=== PATIENT | female | born 1995 | race Caucasian/White ===

== ENCOUNTER → 2019-07-31 16:47 | Outpatient (CLI) | payer OTHER, SELFPAY ==
[2019-08-05 20:07] LABS: Age Gdln ACOG Testing 21-29 (.)
[2019-08-05 20:35] LABS: HPV APTIMA, High Risk Negative (Negative)
[2019-08-05 21:04] LABS: HPV Reflexed? YES, CHARGE PATIENT
== END ==
PROVIDERS: Referring Provider Obstetrics & Gynecology; Visit Provider Obstetrics & Gynecology
DX: Z12.4 Encounter for screening for malignant neoplasm of cervix (principal)
CPT/HCPCS: 87624; 88175; G0145

== ENCOUNTER → 2020-11-09 17:06 | Outpatient (CLI) | payer OTHER, SELFPAY | PROVIDERS: Visit Provider Obstetrics & Gynecology | DX: N39.0 Urinary tract infection, site not specified (principal) | CPT/HCPCS: 87086; 87088 ==

== ENCOUNTER → 2020-12-07 16:22 | Outpatient (CLI) | payer OTHER, SELFPAY | PROVIDERS: Visit Provider Obstetrics & Gynecology | DX: Z11.3 Encounter for screening for infections with a predominantly sexual mode of transmission (principal) ==

== ENCOUNTER 2020-12-13 09:19 | Emergency (ER) | payer OTHER, SELFPAY ==
[2020-12-13 09:20] VITALS: BP 113/72; PULSE 108; RESP 6; TEMP 36.5; O2SAT 99; BMI 23.0
[2020-12-13] MEDS: DiphenhydrAMINE 50 MG/ML Syringe IV (10:01)
[2020-12-13] MEDS: MethylPREDNISolone 125 MG/2 ML Vial IV (10:01)
[2020-12-13] MEDS: Famotidine 200 MG/20 ML MDV 40 MG in 0.9% Normal Saline (Pres. free 6 ML 300 MG IV (10:16)
--- NOTE | 2020-12-13 11:17 | EX.ED.DYSGE1 ---
HPI History of Present Illness Chief Complaint: Allergic Reaction Narrative Narrative: Patient is a 25-year-old female who states she was placed on Bactrim by her family doctor secondary to UTI. She states she took this for about 4 days and then noticed she was getting a little bit of redness/rash. She states that she contact the doctor but they state that it was just mild irritation. Patient states that however in the next 24 hours she developed a diffuse pruritic rash from her face all the way down to her feet and therefore comes in for evaluation. She denies any trouble breathing or swallowing and she denies any new exposures other than the Bactrim [facility] Medical History no medical history Home Medications PNV comb no.58-iron bisgly-FA [] 1 cap PO DAILY 12/13/20 [History Last Taken Unknown] nitrofurantoin monohyd/m-cryst [Macrobid] 100 mg PO BID 12/13/20 [History Last Taken 12/13/20] prednisone 40 mg PO DAILY #10 tab 12/13/20 [Rx Last Taken Unknown] Allergy/AdvReac Type Severity Reaction Status Date / Time No Known Allergies Allergy Verified 12/13/20 09:24 Surgical History no surgical history Social History Smoking Status: Never smoker ROS ROS ED Constitutional Constitutional ED: Denies chills or fever(s) ENT ENT ED: Denies sore throat Cardiovascular Cardiovascular: Denies chest pain Respiratory/Chest Respiratory/Chest: Denies cough or dyspnea Gastrointestinal Gastrointestinal: Denies abdominal pain, diarrhea, nausea or vomiting Genitourinary Genitourinary ED: Denies dysuria Musculoskeletal Musculoskeletal: Denies myalgias Integumentary Reports rash Neurologic Neurologic: Denies headache(s) Hematologic/Lymphatic Hematologic/Lymphatic: Denies easy bleeding or easy bruising EXAM Physical Exam Const Vital Signs: 12/13/20 09:20 Temperature 97.7 F L Temperature Source Temporal Pulse Rate 108 H Respiratory Rate 6 L Blood Pressure 113/72 Blood Pressure Mean 85 Pulse Ox 99 Oxygen Delivery Method Room Air Positive well nourished and well developed General Appearance ED: well developed HEENT Reports moist mucous membranes HEENT Narrative: No tongue or lip swelling no oral lesions no airway edema or compromise Eyes PERRL and EOMs intact bilaterally Neck supple Resp normal respiratory effort and clear to auscultation bilaterally Cardio regular rate and regular rhythm GI normal to inspection, nondistended, normoactive bowel sounds, non-tender and non-distended Auscultation: normoactive bowel sounds Palpation: soft Extremity normal to inspection Neuro oriented x3 and CN's II-XII intact bilaterally Sensorium / Orientation: alert Psych mental status grossly normal Skin Skin Narrative: Patient has urticarial lesions extending from the dorsal aspect of her feet all the way up through her face with no involvement of the palms and soles. The lesions are blanchable in nature without secondary changes to suggest infection. No coalescing lesions or sloughing of tissue to suggest even Jordan syndrome MDM MDM MDM Narrative Medical decision making narrative: Patient presented to the ER and in no acute distress with normal temperature. As she did not have tongue or lip swelling I did not feel there was a need for epinephrine. She was given IV Solu-Medrol Benadryl and Pepcid secondary to the acute allergic reaction. She was watched in the ER for approximately 2 hours and had no rebound of symptoms. At this time I feel her symptoms are most consistent with acute drug reaction mainly the Bactrim. She was advised to list sulfa as an allergy from now on and be placed on 5 more days of steroids to keep the inflammation under control Discharge Plan Triage Chief Complaint: Allergic Reaction ED Provider: Carmelo South Dx/Rx/DC Orders Clinical Impression: Allergic reaction caused by a drug Instructions: ED ADVERSE DRUG REACTION Allergic Prescriptions: New prednisone 20 mg tablet 40 mg PO DAILY Qty: 10 RF: 0 No Action nitrofurantoin monohyd/m-cryst [Macrobid] 100 mg Capsule 100 mg PO BID RF: 0 10-400 mg-mcg Capsule 1 cap PO DAILY RF: 0 Primary Care Provider: Paris Lee Referrals: Paris Lee MD [Primary Care Provider] - Disposition Disposition: Home, Self Care
[2020-12-13 11:39] VITALS: PULSE 99; RESP 16; O2SAT 100
== END 2020-12-13 11:40 | disposition home or self-care (01) ==
PROVIDERS: Emergency Provider Emergency Medicine; PCP Family Medicine
DX: T50.905A Adverse effect of unspecified drugs, medicaments and biological substances, initial encounter (principal); N39.0 Urinary tract infection, site not specified; Z79.52 Long term (current) use of systemic steroids
CPT/HCPCS: 96374; 96375; 99283; A4216; J3490

== ENCOUNTER 2021-04-05 14:34 | Outpatient (CLI) | payer OTHER, SELFPAY ==
[2021-04-05 16:14] LABS: Absolute Lymphocyte Count 1.51 X10^3/uL (0.83-4.51); Absolute Neutrophil Count 6.3 X10^3/uL (2.0-7.7); Basophil# 0.07 X10^3/uL; Basophil% 0.8 % (0-1); Eosinophil# 0.14 X10^3/uL; Eosinophils% 1.6 % (0-5); Hematocrit 41.2 % (37-47); Hemoglobin 14.1 g/dL (12.0-15.0); Lymphocyte # 1.51 X10^3/ul (0.83-4.51); Lymphocyte % 17.5 % (19-41); Mean Corp Hgb Conc 34.2 g/dL (32-36); Mean Corpuscular Volume 84.6 fL (81-99); Mean Platelet Vol. 10.2 fl (6.2-12.0); Monocyte# 0.55 X10^3/uL; Monocyte% 6.4 % (0-10); NRBC Flagged by Analyzer 0 % (0-5); Neutrophil # 6.31 X10^3/uL (2.7-7.7); Neutrophil % 73.4 % (47-70); Platelet Count 245 K/mm3 (150-450); RBC Distribution Width CV 13.1 % (11.6-14.6); RBC Distribution Width SD 39.8 fl (35.1-43.9); Red Blood Count 4.87 M/mm3 (4.2-5.4); White Blood Count 8.6 K/mm3 (4.4-11.0)
[2021-04-06 15:43] LABS: HIV - WCH Non-Reactive (Nonreactive); Hepatitis B Surface Antigen Non-Reactive (Nonreactive); Hepatitis C Antibody Non-Reactive (Nonreactive); Rubella IgG Reactive (Nonreactive); Syphilis Antibodies Non-reactive
[2021-04-08 00:07] LABS: Chlamydia By Nucleic Acid AMP Negative (Negative)
[2021-04-08 08:37] LABS: Gonococcus By Nucleic Acid AMP Negative (Negative)
== END 2021-04-05 23:59 | disposition short-term general hospital (02) ==
LOC: WOBLAB 14:35
PROVIDERS: PCP Family Medicine; Visit Provider Student in an Organized Health Care Education/Training Program
DX: Z34.81 Encounter for supervision of other normal pregnancy, first trimester (principal); Z11.3 Encounter for screening for infections with a predominantly sexual mode of transmission
CPT/HCPCS: 36415; 85025; 86703; 86762; 86780; 86803; 87086; 87340; 87491; 87591

== ENCOUNTER 2021-06-07 16:21 | Outpatient (CLI) | payer OTHER, SELFPAY ==
[2021-06-07 17:23] LABS: Thyroid Stim Hormone (TSH) 2.65 uIU/mL (0.358-3.74)
== END 2021-06-07 23:59 | disposition home or self-care (01) ==
LOC: WOBLAB 16:21
PROVIDERS: PCP Family Medicine; Visit Provider Student in an Organized Health Care Education/Training Program
DX: Z13.29 Encounter for screening for other suspected endocrine disorder (principal)
CPT/HCPCS: 36415; 84443

== ENCOUNTER → 2021-07-15 | Outpatient (CLI) | payer OTHER, SELFPAY | END | disposition home or self-care (01) | LOC: LABSPEC 16:13 | PROVIDERS: PCP Family Medicine; Visit Provider Student in an Organized Health Care Education/Training Program | DX: O23.42 Unspecified infection of urinary tract in pregnancy, second trimester (principal) | CPT/HCPCS: 87086; 87088 ==

== ENCOUNTER → 2021-08-09 | Outpatient (CLI) | payer OTHER, SELFPAY ==
[2021-08-09 17:10] LABS: Hematocrit 35.7 % (37-47); Mean Corp Hgb Conc 33.6 g/dL (32-36); Mean Corpuscular Hgb 29.5 pg (27.0-32.0); Mean Corpuscular Volume 87.7 fL (81-99); Mean Platelet Vol. 10.6 fl (6.2-12.0); Platelet Count 264 K/mm3 (150-450); RBC Distribution Width CV 12.9 % (11.6-14.6); RBC Distribution Width SD 41.8 fl (35.1-43.9); Red Blood Count 4.07 M/mm3 (4.2-5.4); White Blood Count 7.9 K/mm3 (4.4-11.0)
[2021-08-09 17:34] LABS: Glucose Challenge Gest 1H 50g 99 mg/dL (70-140)
== END | disposition home or self-care (01) ==
LOC: WOBLAB 15:57
PROVIDERS: PCP Family Medicine; Visit Provider Student in an Organized Health Care Education/Training Program
DX: Z34.83 Encounter for supervision of other normal pregnancy, third trimester (principal)
CPT/HCPCS: 36415; 82950; 85027

== ENCOUNTER → 2021-11-02 | Outpatient (CLI) | payer OTHER, SELFPAY | END | disposition home or self-care (01) | LOC: LABSPEC 15:53 | PROVIDERS: PCP Family Medicine; Visit Provider Student in an Organized Health Care Education/Training Program | DX: Z36.85 Encounter for antenatal screening for Streptococcus B (principal) | CPT/HCPCS: 87081 ==

== ENCOUNTER 2021-11-30 06:42 | Inpatient (IN) | payer OTHER, SELFPAY ==
[2021-11-30] VITALS (42 sets, daily range): BP systolic 99–132; BP diastolic 56–86; PULSE 73–108; TEMP 36.1–36.8; O2SAT 80–100; BMI 28.9
--- NOTE | 2021-11-30 08:06 | PCM.HP.BLA ---
History and Physical Date of Admission: 11/30/21 HPI: 26-year-old at 40/3 weeks, ROLAND 11/27/2021 by LMP, admitted for induction of labor at term. Denies leaking of fluid, vaginal bleeding, regular contractions. Reports movement. Denies headache, vision changes, chest pain or shortness of breath, nausea or vomiting, diarrhea or constipation, fevers or chills. 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 Medical history: Denies Surgical history: Yet tonsillectomy Medications: vitamin Allergies: Bactrim causes rash Family history: Noncontributory Social history: Denies tobacco, alcohol, drug use Review of system: Negative otherwise stated as above Physical exam: Vital signs:Blood pressure 117/71, pulse 95, pulse ox 97% on room air General: No acute distress, comfortable in bed HEENT: Normocephalic/atraumatic, PERRLA Cardiorespiratory: No increased effort Abdomen: Soft, nontender, nondistended, gravid Extremities: No edema Musculoskeletal: Strength 5/5 throughout extremities Neurologic: Cranial nerves II through XII grossly intact, no focal deficits Cervical exam pending, with 3 cm in office yesterday FHR: `135/mod jake/+accel/no decel [place]: irregular panel Gonorrhea/chlamydia negative Hepatitis B/hepatitis C negative HIV negative Syphilis negative Rubella immune A positive GBS neg 11/02 Assessment/plan: 26-year-old G1, P0 at 40/3 weeks admitted for induction of labor at term. ? Induction of labor with Pitocin ? GBS negative ? Routine orders ? Okay for epidural if desires at any time
[2021-11-30] MEDS: Lactated Ringers 1,000 ML 50 ML IV (08:18)
[2021-11-30] MEDS: Oxytocin 30 units/NS 500 ml 30 UNITS/500 ML IV.SOLN IV (08:19)
[2021-11-30 08:23] LABS: Absolute Lymphocyte Count 1.56 X10^3/uL (0.83-4.51); Basophil# 0.05 X10^3/uL; Basophil% 0.5 % (0-1); Eosinophil# 0.13 X10^3/uL; Eosinophils% 1.2 % (0-5); Hematocrit 39.5 % (37-47); Lymphocyte # 1.56 X10^3/ul (0.83-4.51); Lymphocyte % 14.8 % (19-41); Mean Corp Hgb Conc 32.9 g/dL (32-36); Mean Corpuscular Hgb 28.3 pg (27.0-32.0); Mean Corpuscular Volume 85.9 fL (81-99); Monocyte% 6.6 % (0-10); NRBC Flagged by Analyzer 0 % (0-5); Neutrophil # 8.03 X10^3/uL (2.7-7.7); Platelet Count 246 K/mm3 (150-450); RBC Distribution Width SD 43.6 fl (35.1-43.9); White Blood Count 10.6 K/mm3 (4.4-11.0)
--- NOTE | 2021-11-30 17:01 | PN.OBGYN_ITS ---
Subjective Subjective Getting more uncomfortable with contractions. Objective Data Objective Data Vital Signs: Vital Signs Temp Pulse BP Pulse Ox 97.6 F L 77 120/86 H 98 11/30/21 16:20 11/30/21 16:27 11/30/21 16:21 11/30/21 16:27 Weight: 74 kg Body Mass Index (BMI) 28.9 Intake & Output: Intake and Output for Last 24 Hours 11/28/21 11/29/21 11/30/21 23:59 23:59 23:59 Intake Total 1525.13 / 1525.13 Output Total 2925 / 2925 Balance -1399.87 / -1399.87 Lab / Micro Data Result Diagrams: 11/30/21 07:55 Labs: Laboratory Results - last 24 hr 11/30/21 07:55: WBC 10.6, RBC 4.60, Hgb 13.0, Hct 39.5, MCV 85.9, MCH 28.3, MCHC 32.9, RDW Std Deviation 43.6, RDW Coeff of Lizet 14.0, Plt Count 246, MPV 11.0, Immature Gran % (Auto) 0.900, Neut % (Auto) 76.0 H, Lymph % (Auto) 14.8 L, [place] % (Auto) 6.6, Eos % (Auto) 1.2, Baso % (Auto) 0.5, Absolute Neuts (auto) 8.0 H, Absolute Lymphs (auto) 1.56, Nucleated RBC % 0 11/30/21 07:55: Blood Type A POSITIVE, Antibody Screen NEGATIVE Physical Exam Const alert, oriented x3 and no apparent distress Resp normal respiratory effort Narrative: 3/80/0, AROM clear fluid Extremity no pedal edema Neuro moves all extremities and no focal motor deficits NST FHR Rate Baby A Baseline: 125/mod lizet/+accel/no decel Variability:: Moderate Accelerations:: 15 x 15 Decelerations:: None FHR Category:: Category I Assessment & Plan (1) : PLAN: AROM clear fluid. Continue titrating Pitocin as tolerated.
[2021-11-30] MEDS: LACTATED RINGERS 500 ML 999 ML IV ×2 (17:06→18:58)
[2021-11-30] MEDS: fentaNYL-bupivacaine (epidural) 100 ML BAG EPIDURAL ×2 (18:09→22:18)
[2021-11-30] MEDS: Ondansetron 4 MG/2 ML Vial IV (20:11)
[2021-11-30] MEDS: Lactated Ringers 1,000 ML 200 ML IV (20:11)
[2021-11-30] MEDS: 0.9% Saline Lock 10 ML Syringe IV (20:11)
[2021-12-01] VITALS (37 sets, daily range): BP systolic 100–204; BP diastolic 56–105; PULSE 68–164; RESP 16–18; TEMP 31.8–37.2; O2SAT 94–99
[2021-12-01] MEDS: Lactated Ringers 1,000 ML 200 ML IV (01:14)
[2021-12-01] MEDS: Ondansetron 4 MG/2 ML Vial IV (01:38)
[2021-12-01] MEDS: fentaNYL-bupivacaine (epidural) 100 ML BAG EPIDURAL (03:27)
[2021-12-01] MEDS: Oxytocin 30 units/NS 500 ml 30 UNITS/500 ML IV.SOLN 334 UNITS IV (04:49)
[2021-12-01] MEDS: Methylergonovine 0.2 MG/ML Ampul IM (04:53)
[2021-12-01] MEDS: miSOPROStol 200 MCG Tablet 1000 MCG RC (04:56)
--- NOTE | 2021-12-01 05:06 | EX.PCM.OBRPT ---
Vaginal Delivery Operative Information Date of Procedure: 12/01/21 Pre-Operative Diagnosis: Sanchez intrauterine Post-Operative Diagnosis: Sanchez intrauterine Surgery / Procedure Performed: Spontaneous Vaginal Delivery Type of Anesthesia: Epidural Estimated Blood Loss: 600 cc Findings Description of Procedure: Spontaneous vaginal delivery viable infant female. No nuchal cord. Baby to mom. Cord clamped and cut. Spontaneous delivery of placenta. First-degree laceration repaired with interrupted stitch. Right labial laceration repaired with 1 [id number]. Hemostatic. bleeding decreased to minimal with bimanual massage, Methergine 0.2 mg x 1, Cytotec 1000 mcg x 1 rectally. A Gender: Female (1 minute): 9 (5 minute): 9
[2021-12-01] MEDS: Benzocaine/Lanolin/Aloe Vera 1 SPRAY EACH TOPICAL (06:07)
[2021-12-01] MEDS: Ibuprofen 600 MG Tablet PO ×2 (06:07→19:51)
[2021-12-01] MEDS: 0.9% Saline Lock 10 ML Syringe IV (07:09)
[2021-12-01] MEDS: Senna/Docusate Sodium 1 Tablet PO (16:02)
[2021-12-02] MEDS: Ibuprofen 600 MG Tablet PO ×2 (03:35→09:46)
[2021-12-02 04:37] VITALS: BP 98/61; PULSE 79; RESP 16; TEMP 36.8
--- NOTE | 2021-12-02 06:23 | DS.PCM_ITS ---
Discharge Summary Date of Admission: 11/30/21 Date of Discharge: 12/02/21 Summary: Patient arrived on 11/30/2021 for induction of labor at term. Subsequently delivered vaginally on 12/01/2021. EBL 600 cc given Methergine and Cytotec. Subsequently discharged home on 12/02/2021 Meaningful Use Info Meaningful Use Diagnoses (Choose all that apply): None applicable Discharge Plan Admission Admit Date/Time: 11/30/21 06:42 Primary Reason for Your Visit: Induction of labor Attending Provider: Judith Barrientos Primary Care Provider: Paris Lee Instructions Additional Instructions / Restrictions: Regular diet. Weightbearing as tolerated. Okay to shower. No intercourse for 4 to 6 weeks. Call if fevers, chills, chest pain, shortness of breath. Follow- up 4 to 6 weeks Discharge Orders/Prescriptions Prescriptions: No Action 10-400 mg-mcg Capsule 1 cap PO DAILY cetirizine [Zyrtec] 10 mg Tablet 10 mg PO DAILY Referrals / Follow Up: Paris Lee MD [Primary Care Provider] - Disposition Disposition (needs filled in before D/C Order can be placed): Home, Self Care
--- NOTE | 2021-12-02 06:25 | PCM.PN.OB ---
Subjective Subjective No overnight complaints. Denies dizziness, chest pain, shortness of breath, weakness Objective Data Objective Data Vital Signs: Vital Signs Temp Pulse Resp BP Pulse Ox O2 Del Method 98.2 F 79 16 98/61 97 Room Air 12/02/21 04:37 12/02/21 04:37 12/02/21 04:37 12/02/21 04:37 12/01/21 12:23 12/02/21 04:37 Oxygen Delivery Method Room Air Weight: 163 lb 2.273 oz Body Mass Index (BMI) 28.9 Intake & Output: Intake and Output for Last 24 Hours 11/30/21 12/01/21 12/02/21 23:59 23:59 23:59 Intake Total 3861.83 / 3861.83 2204.51 / 2204.51 Output Total 3175 / 3175 4700 / 4700 Balance 686.83 / 686.83 -2495.49 / -2495.49 Lab / Micro Data Result Diagrams: 11/30/21 07:55 Physical Exam Const alert, oriented x3, no apparent distress, average body habitus, healthy appearing and well nourished HEENT normocephalic and moist oral mucous membranes Eyes PERRL Neck full ROM Resp normal respiratory effort, no retractions and no use of accessory muscles GI GI Narrative: Soft, nontender, uterus firm and below umbilicus Extremity normal to inspection, full ROM and no clubbing, cyanosis or edema Skin no rashes or lesions noted Neuro moves all extremities, no focal motor deficits and no sensory deficits noted Psych mental status grossly normal, affect normal, speech normal and activity/motor behavior normal Assessment & Plan (1) Vaginal delivery: PLAN: day 1. Breast-feeding. Pain well controlled. Okay to discharge home today
[2021-12-02 07:37] LABS: Hematocrit 38.8 % (37-47); Hemoglobin 12.6 g/dL (12.0-15.0); Mean Corp Hgb Conc 32.5 g/dL (32-36); Mean Corpuscular Hgb 28.4 pg (27.0-32.0); Mean Corpuscular Volume 87.4 fL (81-99); Mean Platelet Vol. 10.5 fl (6.2-12.0); Platelet Count 258 K/mm3 (150-450); RBC Distribution Width CV 14.4 % (11.6-14.6); RBC Distribution Width SD 45.5 fl (35.1-43.9); Red Blood Count 4.44 M/mm3 (4.2-5.4); White Blood Count 12.8 K/mm3 (4.4-11.0)
[2021-12-02 09:21] VITALS: BP 109/72; PULSE 80; RESP 16; TEMP 36.4; O2SAT 99
--- NOTE | 2021-12-02 12:24 | NURSING ---
This practical nursing teacher reviewed the documentation completed by Meche Frey, student nurse.
== END 2021-12-02 11:20 | disposition home or self-care (01) | DRG 807 ==
PROVIDERS: Admitting Provider Student in an Organized Health Care Education/Training Program; PCP Family Medicine; Visit Provider Student in an Organized Health Care Education/Training Program
DX: O70.0 First degree perineal laceration during delivery (principal); Z37.0 Single live birth; O48.0 Post-term pregnancy; Z3A.40 40 weeks gestation of pregnancy
CPT/HCPCS: 59025; 59050; 85025; 85027; 86850; 86900; 86901; 99218; J7120; A4216; G0378; J2405

== ENCOUNTER → 2022-07-12 | Outpatient (CLI) | payer OTHER, SELFPAY ==
[2022-07-12 17:05] LABS: Hematocrit 41.5 % (37-47); Hemoglobin 13.7 g/dL (12.0-15.0); Mean Corpuscular Hgb 28.3 pg (27.0-32.0); Mean Corpuscular Volume 85.7 fL (81-99); Mean Platelet Vol. 10.9 fl (6.2-12.0); Platelet Count 259 K/mm3 (150-450); RBC Distribution Width CV 13.5 % (11.6-14.6); RBC Distribution Width SD 42.5 fl (35.1-43.9); Red Blood Count 4.84 M/mm3 (4.2-5.4); White Blood Count 5.5 K/mm3 (4.4-11.0)
[2022-07-12 17:27] LABS: Ferritin 74 ng/mL (8-252); T4 Free Direct 0.94 ng/dL (0.76-1.46); Thyroid Stim Hormone (TSH) 7.86 uIU/mL (0.358-3.74)
[2022-07-20 12:08] LABS: HPV APTIMA, High Risk Negative (Negative)
== END | disposition home or self-care (01) ==
LOC: WOBLAB 15:55
PROVIDERS: PCP Family Medicine; Visit Provider Student in an Organized Health Care Education/Training Program
DX: Z01.419 Encounter for gynecological examination (general) (routine) without abnormal findings (principal)
CPT/HCPCS: 36415; 82728; 84439; 84443; 85027; 87624; 88175; G0145

== ENCOUNTER → 2022-07-19 | Outpatient (CLI) | payer OTHER, SELFPAY ==
[2022-07-19 13:41] LABS: Free T3 2.7 pg/mL (2.18-3.98); T4 Total, Thyroxin 9.4 ug/dL (4.8-13.9); Thyroid Stim Hormone (TSH) 3.94 uIU/mL (0.358-3.74)
== END | disposition home or self-care (01) ==
LOC: BFHLAB 11:06
PROVIDERS: PCP Family Medicine; Referring Provider Family Medicine; Visit Provider Family Medicine
DX: R79.89 Other specified abnormal findings of blood chemistry (principal)
CPT/HCPCS: 36415; 84432; 84436; 84442; 84443; 84481; 86376; 86800

== ENCOUNTER → 2022-10-17 | Outpatient (CLI) | payer OTHER, SELFPAY | END | disposition home or self-care (01) | LOC: BFHLAB 11:21 | PROVIDERS: PCP Family Medicine; Referring Provider Family Medicine; Visit Provider Family Medicine | DX: E03.9 Hypothyroidism, unspecified (principal) | CPT/HCPCS: 36415; 84439; 84443; 84481 ==

== ENCOUNTER → 2023-01-16 | Outpatient (CLI) | payer OTHER, SELFPAY | END | disposition home or self-care (01) | LOC: BFHLAB 13:10 → LABSPEC 13:11 | PROVIDERS: PCP Family Medicine; Referring Provider Family Medicine; Visit Provider Family Medicine | DX: N39.0 Urinary tract infection, site not specified (principal) | CPT/HCPCS: 87086; 87088 ==

== ENCOUNTER → 2023-06-20 | Outpatient (CLI) | payer OTHER, SELFPAY ==
[2023-06-20 12:53] LABS: T4 Free Direct 1.08 ng/dL (0.76-1.46); Thyroid Stim Hormone (TSH) 2.57 uIU/mL (0.358-3.74)
== END | disposition home or self-care (01) ==
LOC: BFHLAB 10:02
PROVIDERS: PCP Family Medicine; Visit Provider Family Medicine
DX: E03.8 Other specified hypothyroidism (principal)
CPT/HCPCS: 36415; 84439; 84443

== ENCOUNTER → 2023-06-23 | Outpatient (CLI) | payer OTHER, SELFPAY ==
[2023-06-23 18:04] LABS: Erythrocyte Sedimentation Rate 7 mm/hr (0-30)
[2023-06-23 18:09] LABS: ALB/GLOB Ratio 0.9 RATIO (0.9-2.4); AST(SGOT) 17 U/L (15-37); Alanine Aminotransfer ALT/SGPT 24 U/L (13-56); Albumin, Serum 3.6 g/dL (3.2-5.0); Alkaline Phosphatase 45 U/L (45-117); Anion Gap 3 (5-15); BUN 16 mg/dL (7-18); Chloride 107 mmol/L (98-107); Creatinine, Serum 0.67 mg/dL (0.55-1.02); EST Glomerular Filtration Rate 111 mL/min (>60); Est Glom Filt Rate - Afr Amer 134 mL/min (>60); Globulin 3.8 g/dL (2.2-4.2); Glucose 93 mg/dL (74-106); Potassium 3.7 mmol/L (3.5-5.1); Protein, Total 7.4 g/dL (6.4-8.2); Rheumatoid Factor < 10.0 IU/mL (<15); Sodium Level 138 mmol/L (136-145)
[2023-06-26 09:07] LABS: ANTINUCLEAR ANTIBODIES DIRECT Negative (Negative)
[2023-06-26 12:08] LABS: CCP IgG Antibodies 2 units (0-19)
== END | disposition home or self-care (01) ==
LOC: BFHLAB 16:33
PROVIDERS: PCP Family Medicine; Visit Provider Family Medicine
DX: M25.50 Pain in unspecified joint (principal); E03.8 Other specified hypothyroidism
CPT/HCPCS: 36415; 80053; 85652; 86038; 86140; 86200; 86431

== ENCOUNTER → 2023-12-22 | Outpatient (CLI) | payer OTHER, SELFPAY ==
[2023-12-22 16:29] LABS: Absolute Lymphocyte Count 1.66 X10^3/uL (0.83-4.51); Absolute Neutrophil Count 4.7 X10^3/uL (2.0-7.7); Basophil# 0.06 X10^3/uL; Basophil% 0.9 % (0-1); Eosinophil# 0.15 X10^3/uL; Eosinophils% 2.1 % (0-5); Hematocrit 40.3 % (37-47); Hemoglobin 13.3 g/dL (12.0-15.0); Lymphocyte # 1.66 X10^3/ul (0.83-4.51); Lymphocyte % 23.8 % (19-41); Mean Corpuscular Hgb 28.3 pg (27.0-32.0); Mean Corpuscular Volume 85.7 fL (81-99); Mean Platelet Vol. 9.9 fl (6.2-12.0); Monocyte# 0.37 X10^3/uL; Monocyte% 5.3 % (0-10); NRBC Flagged by Analyzer 0 % (0-5); Neutrophil # 4.72 X10^3/uL (2.7-7.7); Neutrophil % 67.6 % (47-70); Platelet Count 280 K/mm3 (150-450); RBC Distribution Width CV 12.5 % (11.6-14.6)
[2023-12-22 17:03] LABS: T4 Free Direct 1.24 ng/dL (0.76-1.46)
[2023-12-22 17:59] LABS: HIV - WCH Non-Reactive (Nonreactive); Hepatitis B Surface Antigen Non-Reactive (Nonreactive); Hepatitis C Antibody Non-Reactive (Nonreactive); Rubella IgG Reactive (Nonreactive); Syphilis Antibodies Non-reactive
[2023-12-25 21:07] LABS: Chlamydia By Nucleic Acid AMP Negative (Negative); Gonococcus By Nucleic Acid AMP Negative (Negative)
== END | disposition home or self-care (01) ==
LOC: LABSPEC 15:28 → LAB 15:36
PROVIDERS: PCP Family Medicine; Referring Provider Registered Nurse; Visit Provider Registered Nurse
DX: O99.284 Endocrine, nutritional and metabolic diseases complicating childbirth (principal); E03.9 Hypothyroidism, unspecified; Z3A.00 Weeks of gestation of pregnancy not specified
CPT/HCPCS: 36415; 84439; 84443; 85025; 86703; 86762; 86780; 86803; 86850; 86900; 86901; 87086; 87088; 87340; 87491; 87591

== ENCOUNTER → 2024-04-26 | Outpatient (CLI) | payer OTHER, SELFPAY ==
[2024-04-26 16:37] LABS: Glucose Challenge Gest 1H 50g 71 mg/dL (70-140)
[2024-04-26 16:38] LABS: Absolute Lymphocyte Count 1.28 X10^3/uL (0.83-4.51); Absolute Neutrophil Count 5.1 X10^3/uL (2.0-7.7); Basophil# 0.05 X10^3/uL; Basophil% 0.7 % (0-1); Eosinophil# 0.17 X10^3/uL; Eosinophils% 2.4 % (0-5); Hematocrit 35.4 % (37-47); Hemoglobin 11.9 g/dL (12.0-15.0); Lymphocyte # 1.28 X10^3/ul (0.83-4.51); Lymphocyte % 18.2 % (19-41); Mean Corp Hgb Conc 33.6 g/dL (32-36); Mean Corpuscular Hgb 29.2 pg (27.0-32.0); Mean Corpuscular Volume 86.8 fL (81-99); Monocyte# 0.43 X10^3/uL; Monocyte% 6.1 % (0-10); NRBC Flagged by Analyzer 0 % (0-5); Neutrophil # 5.06 X10^3/uL (2.7-7.7); Neutrophil % 71.9 % (47-70); Platelet Count 242 K/mm3 (150-450); RBC Distribution Width CV 13.3 % (11.6-14.6); Red Blood Count 4.08 M/mm3 (4.2-5.4)
[2024-04-26 17:11] LABS: HIV - WCH Non-Reactive (Nonreactive); Syphilis Antibodies Non-reactive
== END | disposition home or self-care (01) ==
LOC: BWCLAB 15:37
PROVIDERS: PCP Family Medicine; Referring Provider Obstetrics & Gynecology; Visit Provider Obstetrics & Gynecology
DX: O09.92 Supervision of high risk pregnancy, unspecified, second trimester (principal); Z3A.00 Weeks of gestation of pregnancy not specified
CPT/HCPCS: 36415; 82950; 85025; 86703; 86780

== ENCOUNTER → 2024-05-13 | Outpatient (CLI) | payer OTHER, SELFPAY | END | disposition home or self-care (01) | LOC: BWCLAB 16:17 | PROVIDERS: PCP Family Medicine; Referring Provider Obstetrics & Gynecology; Visit Provider Obstetrics & Gynecology | DX: Z00.00 Encounter for general adult medical examination without abnormal findings (principal); Z83.49 Family history of other endocrine, nutritional and metabolic diseases | CPT/HCPCS: 36415; 84443 ==

== ENCOUNTER 2024-06-24 15:19 | Outpatient (CLI) | payer OTHER, SELFPAY ==
--- NOTE | 2024-06-24 15:25 | US_ITS ---
PROCEDURE: OB LIMITED WITH BIOMETRICS (USOBGROWTH), 06/24/2024 REASON FOR EXAM: HISTORY OF SECOND STAGE ARREST. Reportedly, 36 weeks 2 days by previously established dates with ROLAND 07/20/2024. TECHNIQUE: Grayscale and color/spectral doppler transabdominal pelvic ultrasound was performed with attention to the uterus and associated gestation. COMPARISON: None FINDINGS: Gravid uterus with single fetus is identified. Cardiac activity: Regular, 140 bpm. position: Cephalic. Amniotic Fluid Index: 13.0 (normal 5-25), deepest vertical pocket 5.5 (normal 2-8). Placenta: Posterior. biometry: Biparietal diameter: 8.7 cm, corresponding to 35 weeks and 0 days. Head circumference: 31.0 cm, corresponding to 34 weeks and 5 days. Occipitofrontal diameter: 10.8 cm, corresponding to 34 weeks and 2 days. Abdominal circumference: 32.5 cm, corresponding to 36 weeks and 3 days. Femur length: 6.7 cm, corresponding to 34 weeks and 4 days. Composite gestational age: 34 weeks and 6 days Estimated Weight (EFW): 2,768 +/- 415 g, 39th percentile. Estimated delivery date (ROLAND): 07/30/2024 based on today's measurements. US/OB Limited With Biometrics IMPRESSION: 1. Single living intrauterine gestation at 34 weeks and 6 days based on today's measurements. Correlate with clinical factors including previously established dates. 2. Estimated weight 2,768 +/- 415 g, 39th percentile based on provided pr eviously established dates. biometry as above. 3. Note that detailed anatomic survey was not performed. 4. Additional description as above. Reading Location: [id number]
== END 2024-06-24 23:59 | disposition home or self-care (01) ==
PROVIDERS: PCP Family Medicine; Referring Provider Obstetrics & Gynecology; Visit Provider Obstetrics & Gynecology
DX: O09.92 Supervision of high risk pregnancy, unspecified, second trimester (principal)
CPT/HCPCS: 76816

== ENCOUNTER → 2024-06-28 | Outpatient (CLI) | payer OTHER, SELFPAY | END | disposition home or self-care (01) | LOC: LABSPEC 16:40 | PROVIDERS: PCP Family Medicine; Referring Provider Obstetrics & Gynecology; Visit Provider Obstetrics & Gynecology | DX: O09.92 Supervision of high risk pregnancy, unspecified, second trimester (principal); Z3A.00 Weeks of gestation of pregnancy not specified | CPT/HCPCS: 87081 ==

== ENCOUNTER 2024-07-15 17:45 | Inpatient (IN) | payer OTHER, SELFPAY ==
[2024-07-15] VITALS (38 sets, daily range): BP systolic 100–120; BP diastolic 56–74; PULSE 80–104; RESP 16–20; TEMP 36.4–36.9; O2SAT 97–100; BMI 26.2
[2024-07-15] MEDS: Lactated Ringers 1,000 ML 999 ML IV (18:00)
[2024-07-15 18:22] LABS: Absolute Lymphocyte Count 1.83 X10^3/uL (0.83-4.51); Absolute Neutrophil Count 7.1 X10^3/uL (2.0-7.7); Basophil# 0.05 X10^3/uL; Basophil% 0.5 % (0-1); Eosinophil# 0.06 X10^3/uL; Eosinophils% 0.6 % (0-5); Hematocrit 40.7 % (37-47); Hemoglobin 13.6 g/dL (12.0-15.0); Lymphocyte # 1.83 X10^3/ul (0.83-4.51); Lymphocyte % 18.7 % (19-41); Mean Corp Hgb Conc 33.4 g/dL (32-36); Mean Corpuscular Hgb 28.5 pg (27.0-32.0); Mean Corpuscular Volume 85.3 fL (81-99); Mean Platelet Vol. 10.6 fl (6.2-12.0); Monocyte# 0.63 X10^3/uL; Monocyte% 6.4 % (0-10); NRBC Flagged by Analyzer 0 % (0-5); Neutrophil # 7.12 X10^3/uL (2.7-7.7); Neutrophil % 72.9 % (47-70); Platelet Count 219 K/mm3 (150-450); RBC Distribution Width CV 14.2 % (11.6-14.6); RBC Distribution Width SD 43.9 fl (35.1-43.9); Red Blood Count 4.77 M/mm3 (4.2-5.4); White Blood Count 9.8 K/mm3 (4.4-11.0)
[2024-07-15 18:59] LABS: Syphilis Antibodies Nonreactive (Nonreactive)
--- NOTE | 2024-07-15 18:59 | HP.PCM.OB_ITS ---
HPI - General General Date of Admission: 07/15/24 HPI Narrative KAUSHAL RODRIGUEZ, is a 29 2 P1 @ 39 weeks 2 days who presents to L&D in active labor. She is breathing through contractions and requesting an epidural. She was 4 cm dialted an hour ago and is now 7 cm. still intact. Maternal Data Information ROLAND Calculator Estimated Delivery Date Method Current WG Current Estimate 07/20/24 LMP (Certain) 39w 2d PFSH PFSH Medical History Vaginal delivery Seasonal allergies Home Medications ?Medication ?Instructions ?Recorded ?Last Taken ?Type doxylamine succinate 25 mg tablet 12.5 mg PO QHS PRN 0 12/15/23 Unknown History (Unisom (doxylamine)) multivit-min no.71-iron fum 28 cap PO 12/15/23 Unknown History mg-folate no.1 1 mg-dha 300 mg capsule (PNV-Meherrin) pyridoxine (vitamin B6) 25 mg 12.5 mg PO QDAY 12/15/23 Unknown History tablet cephalexin 250 mg capsule 250 mg PO ONCE uti preventio n #20 12/22/23 Unknown Rx caps Allergy/AdvReac Type Severity Reaction Status Date / Time sulfamethoxazole (From Allergy Severe Swelling Verified 07/12/24 14:55 Bactrim) trimethoprim (From Bactrim) Allergy Rash Verified 07/12/24 14:55 gluten AdvReac Intermediate Abd Verified 07/12/24 14:55 cramps/diarrhea Family History Mother Thyroid disorder hypothyroidism Aunt Thyroid disorder Maternal Hypothyroid Grandmother Thyroid disorder Maternal hypothyroid Surgical History History of surgery Social History adopted: No household members: spouse and children number of children: 1 current occupational status: employed current occupation: [employer] current occupational exposures/hazards: No pets and animals: Yes pets and animals: dog(s) history of recent travel: No sexually active: Yes Smoking Status: Never smoker alcohol intake: never substance use type: does not use diet: gluten free well-balanced diet: daily or most days caffeine: No eating out: rarely or never during the past year weight has: remained stable what type of physical activity do you participate in: walking frequency: 3-4 times per week duration: 15-30 minutes/day polly/jehovah's witness: [employer] seatbelt use: always do you feel safe at home: Yes additional 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 Date Name GA/Weeks Outcome Route Bth Weight Gen Labor Lgth Anes thes ia Del Locatn Provider FOB 12/01/21 Rimakarliesoledad 41 live - full term 7#1oz Female epi dural [facility] Judith Coates Delivery Date: 12/01/21 Last Updated by: Elma Mai IOL post dates Visit Details Expected Delivery Route/Plan Labor Preferences- CB/BF classes: [] labor support person: [] labor intervention preferences: [] pain management options preferred: [] cut cord/dad catch: [] : [] PP control planned: [] discussed possible routes of delivery and associated risks: [] special requests: [] Plans Covid status: [] Flu vaccine: [] Tdap vaccine: given Rhogam: na LARC form signed: [] movement and labor precautions reviewed. Problem list reviewed and updated with the most current plan of care details and appropriate orders placed. Relevant counseling for the gestational age provided. Continue routine care and follow up unless otherwise noted in visit no beronica/problem list details OB Flowsheet Initial Weight: 122 lb Date -?-?-?-?-?-?-?-?-?-?-?-?- EGA Weight BP Urine Prot -?-?-?-?-?-?-?-?-?-?-?-?- Glucose FHR FuHt Pres Dilation -?-?-?-?-?-?-?-?-?-?-?-?- Effaced St Visit Note 12/22/23 -?-?-?-?-?-?-?-?-?-?-?-?- 9w 6d 122 lb (+0 oz) 116/79 -?-?-?-?-?--?-?-?-?-?-?-?- 158 -?-?-?-?-?-?-?-?-?-?-?-?- LC-3.78cm on wit h LMP. 01/24/24 -?-?-?-?-?-?-?-?-?-?-?-?- 14w 4d 127 lb 6 oz (+5 lb 6 oz) 108/72 Negative -?-?-?-?-?-?-?-?-?-?-?-?- Negative 150 -?-?-?-?-?-?-?-?-?-?-?-?- JV- no complaint s today. pt reassured with bedside ultrasound 02/27/24 -?-?-?-?-?-?-?-?-?-?-?-?- 19w 3d 132 lb 4 oz (+10 lb 4 oz) 104/62 Negative -?-?-?-?-?-?-?-?-?-?-?-?- Negative 147 -?-?-?-?-?-?-?-?-?-?-?-?- MH-No VB. Akil F M. Nausea improved. Anatomy US MFM today 03/29/24 -?-?-?-?-?-?-?-?-?-?-?-?- 23w 6d 139 lb (+17 lb) 100/64 -?-?-?-?-?-?-?-?-?-?-?-?- 150 24 -?-?-?-?-?-?-?-?-?-?-?-?- KW- no vb/lof/ct x. good fm. 28 week labs discussed. spouses FMLA papers to triage. 04/26/24 -?-?-?-?-?-?-?-?-?-?-?-?- 27w 6d 145 lb 2 oz (+23 lb 2 oz) 115/67 Negative -?-?-?-?-?-?-?-?-?-?-?-?- Negative 140 28 -?-?-?-?-?-?-?-?-?-?-?-?- SM- no vb lof go odf m no reuglar ctx tdap today 05/13/24 -?-?-?-?-?-?-?-?-?-?-?-?- 30w 2d 148 lb 4 oz (+26 lb 4 oz) 111/71 Negative -?-?-?-?-?-?-?-?-?-?-?-?- Negative 143 30 -?-?-?-?-?-?-?-?-?-?-?-?- JV_ no complaint s today. planning 36 week growth scan and rpt tsh today. 05/31/24 -?-?-?-?-?-?-?-?-?-?-?-?- 32w 6d 142 lb 2 oz (+20 lb 2 oz) 98/65 Negative -?-?-?-?-?-?-?-?-?-?-?-?- Negative 135 33 -?-?-?-?-?-?-?-?-?-?-?-?- LC- no vb/ctx/lo f. good fm. no concerns today LC- no vb/ctx/lof. good fm. normal tsh. 06/14/24 -?-?-?-?-?-?-?-?-?-?-?-?- 34w 6d 147 lb 6 oz (+25 lb 6 oz) 116/76 Negative -?-?-?-?-?-?-?-?-?-?-?-?- Negative 135 33.5 -?-?-?-?-?-?-?-?-?-?-?-?- JV-no lof, vagin al bleeding, or dec fm. no complaints today. 06/28/24 -?-?-?-?-?-?-?-?-?-?-?-?- 36w 6d 151 lb (+29 lb) 107/71 Negative -?-?-?-?-?-?-?-?-?-?-?-?- Negative 143 35 Cephalic 1 -?-?-?-?-?-?-?-?-?-?-?-?- 70 -1 JV- no lof , vaginal bleeding, or dec fm. questions about measles today. FOB wants to be tested for immunity. 07/05/24 -?-?-?-?-?-?-?-?-?-?-?-?- 37w 6d 151 lb (+29 lb) 116/79 Negative -?-?-?-?-?-?-?-?-?-?-?-?- Negative 125 36 Cephalic 2 .5 -?-?-?-?-?-?-?-?-?-?-?-?- 70 -1 KW- no vb/ lof/reg ctx. good fm. labor precautions. 07/12/24 -?-?-?-?-?-?-?-?-?-?-?-?- 38w 6d 148 lb 6 oz (+26 lb 6 oz) 115/69 Negative -?-?-?-?-?-?-?-?-?-?-?-?- Negative 130 38 Cephalic 2 .5 -?-?-?-?-?-?-?-?-?-?-?-?- 70 -1 LC- no vb/ reg ctx/lof. good fm. ROS Constitutional Constitutional: Denies change in weight, fatigue, fever(s), headache(s), poor appetite or weakness Eyes Eyes: Denies blurry vision, change in vision, seeing flashes or spots in vision ENT HEENT: Denies dizziness, headache(s), loss taste/smell or sore throat Cardiovascular Cardiovascular: Denies chest pain, dizziness, dyspnea, irregular heart rhythm, leg edema, palpitations, rapid heart rate or vomiting Respiratory/Chest Respiratory/Chest: Denies chest tightness, cough, dyspnea or breast pain Gastrointestinal Gastrointestinal: Denies abdominal pain, anorexia, constipation, cramping, diarrhea, hemorrhoids, vomiting or weight changes Genitourinary Genitourinary: Denies dysuria, flank pain, genital lesions, genital pain, urinary frequency or urinary urgency Musculoskeletal Musculoskeletal: Denies back pain, difficulty walking, joint pain, limited range of motion, muscle cramps or numbness Integumentary Integumentary: Denies lesions or unusual bruising Neurologic Neurologic: Denies abnormal movements, abnormal speech, dizziness, numbness, seizure-like activity or syncope Psychiatric Psychiatric: Denies anxiety, behavioral changes, change in appetite, change in libido, cognitive impairment, confusion, depression, difficulty concentrating, hallucinations or suicidal thoughts Endocrine Endocrinology: Denies excessive sweating, polydipsia or polyuria Hematologic/Lymphatic Hematologic/Lymphatic: Denies easy bleeding, easy bruising or lymphadenopathy Allergic/Immunologic Allergic/Immunologic: Denies itchy eyes, lip swelling, seasonal rhinorrhea, rhinitis, throat swelling, tongue swelling, eczemia, wheezing or asthma Vital Signs Vital Signs Vital Signs: 07/15/24 17:29 07/15/24 17:29 07/15/24 17:29 Temperature Temperature Source Temporal Pulse Rate 87 Respiratory Rate Blood Pressure 115/69 BP Systolic 115 BP Diastolic 69 07/15/24 17:29 07/15/24 17:29 Temperature 97.9 F Temperature Source Pulse Rate Respiratory Rate 16 Blood Pressure BP Systolic BP Diastolic Weight Weight: 148 lb Body Mass Index (BMI) 26.2 Physical Exam Const alert, oriented x3, no apparent distress and healthy appearing General Appearance: cooperative; Negative for anxious HEENT normocephalic Face and Sinus: normal facial exam Eyes EOMs intact bilaterally and no scleral icterus General Eye: normal appearance of both eyes Neck full ROM and supple Lymph Lymphatic: no lymphadenopathy noted Chest Chest: abnormal inspection of the chest Resp normal respiratory effort Effort and Inspection: able to speak in complete sentences Cardio regular rate GI soft to palpation and non-tender Inspection: gravid Palpation: soft; Negative for tender external exam normal Back/Spine no CVA tenderness Extremity normal to inspection, full ROM and no clubbing, cyanosis or edema General Extremity: Negative for calf tenderness or edema Skin Lesions: no lesions Rashes: no rashes Psych mental status grossly normal Labs Labs Labs: Blood Type A POSITIVE Antibody Screen NEGATIVE Hct 40.7 % (37-47) Hgb 13.6 g/dL (12.0-15.0) Obstetrics Ultrasound Syphilis Total Ab Non-reactive Rubella IgG Antibody Reactive (Nonreactive) Hep Bs Antigen Non-Reactive (Nonreactive) Hepatitis C Antibody Non-Reactive (Nonreactive) Chlamydia DNA (MISSY) Negative (Negative) N.gonorrhoeae DNA (MISSY) Negative (Negative) HIV 1&2 Antibody Non-Reactive (Nonreactive) Glucose 1 Hr 50 gm 71 mg/dL (70-140) Miscellaneous Test Assessment & Plan (1) Frequent UTI: (2) Supervision of high-risk : QUALIFIERS: Trimester: second trimester Qualified Code(s): O09.92 - Supervision of high risk , unspecified, second trimester COMMENT: [id number], ROLAND 07/20/24, surprise OSCAR Ke[place], Jaxon (3) : QUALIFIERS: Weeks of gestation: 38 weeks Qualified Code(s): Z3A.38 - 38 weeks gestation of COMMENT: normal anatomy. genetic & carrier testing- declined. (4) FH: hypothyroidism: COMMENT: Mother, Maternal Aunt & Grandmother (5) Gluten free diet: COMMENT: for joint pain not celiac (6) Borderline hypothyroidism: COMMENT: not on medication (7) COVID-19 affecting in first trimester: COMMENT: October, asa 81 mg (8) Active labor at term:
[2024-07-15] MEDS: Ondansetron 4 MG/2 ML Vial IV (19:00)
[2024-07-15] MEDS: Lactated Ringers 1,000 ML 50 ML IV (19:01)
[2024-07-15] MEDS: Oxytocin 10 UNITS/ML Vial IM (19:20)
[2024-07-15] MEDS: Oxytocin 15 Units/NS 250ml 15 UNITS/250 ML IV.SOLN 83 UNITS IV (19:20)
--- NOTE | 2024-07-15 19:45 | OB.VAGDELI_ITS ---
Assessment & Plan (1) Active labor at term: (2) Supervision of high-risk : QUALIFIERS: Trimester: second trimester Qualified Code(s): O09.92 - Supervision of high risk , unspecified, second trimester COMMENT: [id number], ROLAND 07/20/24, surprise OSCAR Rishabh, Jaxon (3) : QUALIFIERS: Weeks of gestation: 38 weeks Qualified Code(s): Z3A.3 8 - 38 weeks gestation of COMMENT: normal anatomy. genetic & carrier testing- declined. (4) Gluten free diet: COMMENT: for joint pain not celiac (5) Borderline hypothyroidism: COMMENT: not on medication (6) COVID-19 affecting in first trimester: COMMENT: October, asa 81 mg Maternal Data Information ROLAND Calculator Estimated Delivery Date Method Current WG Current Estimate 07/20/24 LMP (Certain) 39w 2d Final ROLAND: 07/20/24 Gestational age: 39 weeks 2 days Vaginal Delivery Maternal Presentation Maternal Presentation: Active Labor Type of Induction: Amniotomy Vaginal Delivery Information Procedure Performed: Spontaneous Vaginal Delivery Surgeon/Practitioner: Lluvia Shah Date of Procedure: 07/15/24 Pre-Procedure Diagnosis: active labor, @ 39 weeks 2 days Post-Procedure Diagnosis: active labor, @ 39 weeks 2 days Type of anesthesia: None Estimated Blood Loss: 200cc Time of Delivery: 19:18 Findings Description of procedure: Patient began pushing and delivered the head in the CARMEN presentation. The head was delivered atraumatically. The anterior and posterior shoulders delivered without complication followed by the rest of the infant and the was placed on the maternal abdomen. Delayed cord clamping was employed for approximately 60 seconds. Cord was clamped and cut and gentle traction was ap plied to the cord and the placenta delivered spontaneously immediately following it was noted to be intact with three-vessel cord. The perineum and vagina were inspected and noted to have a right labial laceration. This was repaired using a 3-0 vicryl rapide EBL was [100 cc]. Patient and tolerated delivery well. Procedure findings: viable male infant. 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
[2024-07-15] MEDS: Ketorolac 30 MG/ML Syringe IV (20:11)
[2024-07-15] MEDS: Benzocaine/Lanolin/Aloe Vera 85 GM Spray 1 SPRAY TOPICAL (21:03)
[2024-07-15] MEDS: Acetaminophen 500 MG Tablet 1000 MG PO (23:58)
[2024-07-16 05:20] VITALS: PULSE 88; O2SAT 97
[2024-07-16 05:21] VITALS: BP 119/62; PULSE 82; PULSE 90; RESP 18; TEMP 36.7; O2SAT 98
[2024-07-16] MEDS: Ibuprofen 600 MG Tablet PO ×2 (05:24→14:07)
--- NOTE | 2024-07-16 07:04 | DCINST_ITS ---
Discharge Instructions Diet Discharge Diet: No restrictions DC O2, CPAP, BIPAP needs Home O2 Discharge instructions: No Dressing / Incision Discharge Activity: Return to Normal Activity, May Not Drive (while taking narcotic pain medications.) and May Shower May resume sexual activity in: 4-6 weeks Dressing / Incision Call your doctor if your incision/area has: Continuous Slow Oozing, Sudden Increased Bleeding, Increased Pain/ Swelling, Increased Redness and Foul Smelling Discharge Follow Up Care Please Follow Up With: Lluvia Shah DO When: Call [phone] to make an appointment with your doctor in 6 weeks. If you had elevated blood pressure or 4th degree laceration, you will need to be seen in 2 weeks. Test Results: Test results from this visit will be discussed in further detail at your follow- up appointment, if applicable. Discharge Plan Admission Admit Date/Time: 07/15/24 17:45 Attending Provider: Lluvia hSah Primary Care Provider: Paris Lee Discharge Orders/Prescriptions Prescriptions: No Action [facility] 28-1-300 mg capsule PO pyridoxine (vitamin B6) 25 mg tablet 12.5 mg PO QDAY Unisom (doxylamine) 25 mg tablet 12.5 mg PO QHS PRN (Reason: sleep) cephalexin 250 mg capsule 250 mg PO ONCE Qty: 20 12RF Rx Instructions: use x1 after intercourse. Referrals / Follow Up: Paris Lee MD [Primary Care Provider] -
--- NOTE | 2024-07-16 07:33 | PN.OBGYN_ITS ---
Subjective Subjective Patient doing well without complaints. Tolerating PO. Ambulating and voiding without difficulty. Feeding well. Denies chest pain, shortness of breath, calf pain/swelling, fevers, chills, lightheadedness. Objective Data Objective Data Vital Signs: Vital Signs Temp Pulse Resp BP Pulse Ox O2 Del Method 98.0 F 90 18 119/62 98 Room Air 07/16/24 05:21 07/16/24 05:21 07/16/24 05:21 07/16/24 05:21 07/16/24 05:21 07/16/24 05:21 Oxygen Delivery Method Room Air Weight: 148 lb Body Mass Index (BMI) 26.2 Intake & Output: Intake and Output for Last 24 Hours 07/14/24 07/15/24 07/16/24 23:59 23:59 23:59 Intake Total 1265.83 / 1265.83 Output Total 1000 / 1000 900 / 900 Balance 265.83 / 265.83 -900 / -900 Lab / Micro Data Attestation: I reviewed the patient's lab results. 07/15/24 18:00 Labs: Laboratory Results - last 24 hr 07/15/24 18:00: WBC 9.8, RBC 4.77, Hgb 13.6, Hct 40.7, MCV 85.3, MCH 28.5, MCHC 33.4, RDW Std Deviation 43.9, RDW Coeff of Lizet 14.2, Plt Count 219, MPV 10.6, Immature Gran % (Auto) 0.900, Neut % (Auto) 72.9 H, Lymph % (Auto) 18.7 L, [place] % (Auto) 6.4, Eos % (Auto) 0.6, Baso % (Auto) 0.5, Absolute Neuts (auto) 7.1, Absolute Lymphs (auto) 1.83, Nucleated RBC % 0, Syphilis Total Ab Nonreactive, Blood Type A POSITIVE, Antibody Screen NEGATIVE ROS Constitutional Constitutional: Reports systems reviewed and no addt'l complaints, except as documented; Denies anorexia or headache(s) Cardiovascular Cardiovascular: Reports systems reviewed and no addt'l complaints, except as documented; Denies dizziness, dyspnea, nausea or tachypnea Respiratory/Chest Respiratory/Chest: Reports systems reviewed and no addt'l complaints, except as documented; Denies cough, dyspnea, shortness of breath at rest or tachypnea Gastrointestinal Gastrointestinal: Reports systems reviewed and no addt'l complaints, except as documented; Denies abdominal pain, constipation or nausea Genitourinary Genitourinary: Reports systems reviewed and no addt'l complaints, except as documented; Denies burning urination, difficulty urinating, dysuria, urinary frequency or urinary incontinence Musculoskeletal Musculoskeletal: Reports systems reviewed and no addt'l complaints, except as documented Integumentary Integumentary: Reports systems reviewed and no addt'l complaints, except as documented Neurologic Neurologic: Reports systems reviewed and no addt'l complaints, except as documented; Denies abnormal speech, dizziness or headache(s) Psychiatric Psychiatric: Reports systems reviewed and no addt'l complaints, except as documented Endocrine Endocrinology: Reports systems reviewed and no addt'l complaints, except as documented Hematologic/Lymphatic Hematologic/Lymphatic: Reports systems reviewed and no addt'l complaints, except as documented Physical Exam Const alert, oriented x3 and no apparent distress Neck full ROM Resp normal respiratory effort, normal air movement and no retractions Effort and Inspection: able to speak in complete sentences and symmetric chest movement GI soft to palpation Bladder / Kidney Exam: bladder normal to palpation Uterus Palpation: uterus fundus firm Extremity normal to inspection and full ROM Psych mental status grossly normal, thought process normal and cooperative Assessment & Plan (1) Vaginal delivery: COMMENT: J PLAN: s/p PPD # 1 1. routine post delivery care 2. breast feeding- support given 3. rh positive 4. rubella immune 5. Discharge home (2) Active labor at term: (3) Frequent UTI: (4) : QUALIFIERS: Weeks of gestation: 38 weeks Qualified Code(s): Z 3A.38 - 38 weeks gestation of COMMENT: normal anatomy. genetic & carrier testing- declined. (5) Supervision of high-risk : QUALIFIERS: Trimester: second trimester Qualified Code(s): O09.92 - Supervision of high risk , unspecified, second trimester COMMENT: [id number], ROLAND 07/20/24, surprise OSCAR Velizsoledad, Jaxon (6) FH: hypothyroidism: COMMENT: Mother, Maternal Aunt & Grandmother (7) Gluten free diet: COMMENT: for joint pain not celiac (8) Borderline hypothyroidism: COMMENT: not on medication (9) COVID-19 affecting in first trimester: COMMENT: October, asa 81 mg Charges/Coding Multi Select Codes Urinary/Genital Urinary/Genital CPT Codes: No Charge
[2024-07-16 07:56] VITALS: BP 121/76; PULSE 81
[2024-07-16] MEDS: Acetaminophen 500 MG Tablet 1000 MG PO ×2 (07:58→18:37)
[2024-07-16 08:04] VITALS: BP 121/76; PULSE 81; RESP 16; TEMP 36.7
[2024-07-16] MEDS: Benzocaine/Lanolin/Aloe Vera 85 GM Spray 1 SPRAY TOPICAL (14:08)
[2024-07-16 14:11] VITALS: BP 108/66; PULSE 80; RESP 16; TEMP 36.4
[2024-07-16] MEDS: Senna/Docusate Sodium 1 Tablet PO (14:22)
--- NOTE | 2024-07-23 15:22 | NURSING ---
follow up phone call made, no answer, left voicemail
== END 2024-07-16 20:20 | disposition home or self-care (01) | DRG 807 ==
LOC: WPOUT 17:47 → WP 17:47
PROVIDERS: Admitting Provider Obstetrics & Gynecology; PCP Family Medicine; Referring Provider Obstetrics & Gynecology; Visit Provider Obstetrics & Gynecology
DX: O70.0 First degree perineal laceration during delivery (principal); Z37.0 Single live birth; Z3A.39 39 weeks gestation of pregnancy; Z86.16 Personal history of COVID-19; Z87.440 Personal history of urinary (tract) infections
CPT/HCPCS: 59025; 59050; 85025; 86780; 86850; 86900; 86901; 99221; A4216; G0378; J2405

== ENCOUNTER → 2024-09-13 | Outpatient (CLI) | payer OTHER, SELFPAY ==
--- OUTSIDE RECORDS SUMMARY | 2024-09-13 13:10 | XMS RPT_ITS | CCD ---
Author Organization [facility] Care Team Providers Care Lathe Sander Name Role Phone PCP, None Unavailable Gil Layne Unavailable Unavailable Unavailable Primary Care Provider Unavailstephen e Unavailable Primary Care Provider Unavailstephen e LETTY MAHONEY Attending Unavailable LLUVIA BARGER Referring Unavailab LLUVIA Munoz Attending Unavailab LLUVIA Munoz Attending Unavailab ROSALIND Jarquin Referring Unavailabl e Dr. Paris Lee MD Primary Care Provider Dr. Pairs Lee MD Referring Provider [phone] Dr. Lluvia Shah DO Attending Provider Breana BUTLER-Izzy Turcios Attending Provider [phone] Kate Luna CNM Attending Provider [phone] Dr. Rosalind Oconnor MD Attending Provider [phone] Dr. Rosalind Oconnor MD Referring Provider Dr. Lluvia Shah DO Referring Provider Dr. Paris Lee MD Primary Care Provider Dr. Paris Lee MD Referring Provider [phone] Kate Luna CNM Attending Provider [phone] Dr. Rosalind Oconnor MD Attending Provider Dr. Rosalind Oconnor MD Referring Provider [phone] Dr. Lluvia Shah DO Attending Provider Dr. Lluvia Shah DO Referring Provider Kya Go CNM Attending Provider Dr. Lluvia Shah DO Admit Provider [phone] Dr. Lluvia Shah DO Other Provider [phone] Dr. Paris Lee MD Primary Care Provider Dr. Paris Lee MD Referring Provider [phone] Kate Luna CNM Attending Provider [phone] Lluvia Shah Referring Unavailabl e [place], [place] Primary Care Unavailable Vande Lluvia Caro Attending Unavailabl e [place], [place] Primary Care Unavailable Miedel, Paris Referring Unavailable Lluvia Shah Attending Unavailabl Kya Barber Attending Unavailable [place]ied, [place] Primary Care Unavailable Miedel, [place] Referring Unavailable Mied, [place] Primary Care Unavailable Mied, [place] Referring Unavailable Kate Luna Attending Unavailable [place]ied, [place] Primary Care Unavailable Miedel, [place] Referring Unavailable Rosalind Oconnor Attending Unavailable [place]ied, [place] Primary Care Unavailable Rosalind Oconnor Attending Unavailable Rosalind Oconnor Referring Unavailable Dianee Lluvia Caro Referring Unavailabl e [place], [place] Primary Care Unavailable Dianee Lluvia Caro Attending Unavailabl e Vande VeldeLluvia Referring Unavailabl e [place], [place] Primary Care Unavailable Lluvia Shah Attending Unavailabl e [place], [place] Primary Care Unavailable Vande Lluvia Caro Attending Unavailabl e [place], [place] Referring Unavailable Mied, [place] Primary Care Unavailable lLuvia Shah Admitting Unavailabl e Vande VeldeLluvia Referring Unavailabl e Vande VelLluvia figueroa Attending Unavailabl e Vande VeldeLluvia Admitting Unavailabl e Vande VeldeLluvia Referring Unavailabl e [place], [place] Primary Care Unavailable Lluvia Shah Attending Unavailabl e [place], [place] Primary Care Unavailable Vande VelLluvia figueroa Attending Unavailabl e [place]el, [place] Referring Unavailable M[place]el, [place] Primary Care Unavailable Miedel, [place] Referring Unavailable Kate Luna Attending Unavailable [place]el, [place] Primary Care Unavailable [place]el, [place] Referring Unavailable Kya Go Attending Unavailable [place], [place] Primary Care Unavailable [place], [place] Referring Unavailable Lluvia Shah Attending Unavailabl e [place], [place] Primary Care Unavailable [place], [place] Referring Unavailable Izzy Toussaint Attending Unavailable Kya Go Attending Unavailable [place], [place] Primary Care Unavailable Miedel, [place] Referring Unavailable [place]iedel, [place] Primary Care Unavailable Miedel, [place] Referring Unavailable Lluvia Shah Attending Unavailabl e [place], [place] Primary Care Unavailable Lluvia Shah Admitting Unavailabl e Vande Velcarolina, Lluvia Referring Unavailabl e Dianee Gordo, Lluvia Attending Unavailabl e Vande Gordo, Lluvia Consulting Unavailabl e Kate Luna Attending Unavailable M[place]el, [place] Primary Care Unavailable M[place]el, [place] Referring Unavailable Kya Go Attending Unavailable [place], [place] Primary Care Unavailable Kya Go Referring Unavailable Kya Go Attending Unavailable Allergies Allergy Classification Reported Allergen(s) Allergy Type Date of Onset Reaction(s) Facility (10 sources) Sulfamethoxazole Drug Allergy 2 Rash, Swelling [facility] Comment on above: throat began to swel l. (10 sources) Trimethoprim Drug Allergy 2 Rash [facility] (2 sources) Sulfonamides (Antibiotic) Drug Allergy 1 Hives, Itching, Rash, Swelling [facility] (7 sources) Wheat gluten extract Drug Allergy 4 GI Upset [facility] Comment on above: GI upset (1 source) Gluten Drug allergy (disorder) 5 [facility] (1 source) Sulfamethoxazole Drug Allergy 5 [facility] (1 source) Trimethoprim Drug Allergy 5 [facility] Medications Current Medications Medication Drug Class(es) Dates Sig (Normalized) Sig (Original) calcium carbonate 1250 mg oral tablet (1 source) Start: 09-05-2024 take 1 tablet by mouth once daily Calcium Carbonate 500 mg calcium (1,250 mg) tablet Active 500 mg PO daily September 05, 2024 12:00am cephalexin 250 mg oral capsule (10 sources) Cephalosporin Antibacterial Start: 12-22-2023 End: 09-05-2024 take 1 capsule by mouth once Cephalexin 250 mg capsule Active 250 mg PO ONCE 90 September 05, 2024 3:11pm use x1 after intercourse. Start: 04-07-2021 End: 07-17-2023 cephALEXin (KEFLEX) 250 mg c apsule Take 1 capsule by mouth as directed. after intercourse to prevent UTI, take no more than one per day. 60 capsule 1 07/17/2023 Active cholecalciferol 0.05 mg oral capsule (1 source) Vitamin D Start: 09-05-2024 take 1 capsule by mouth once daily Cholecalciferol (Vitamin D3) 50 mcg (2,000 unit) capsule Active 50 ug PO daily September 05, 2024 12:00am Ethinyl Estradiol / norgestimate (3 sources) Progestin, Estrogen Start: 07-14-2023 take 1 tablet by mouth once SPRINTEC 0.25-35 mg-mcg per tablet Take 1 tablet by mouth every afternoon. 84 tablet 3 07/14/2023 Active Start: 06-05-2023 End: 07-14-2023 take 1 tablet by mouth once SPRINTEC 0.25-35 mg-mcg pe r tablet Take 1 tablet by mouth every afternoon. 0 06/05/2023 07/14/2023 Discontinued Magnesium (2 sources) Start: 12-06-2021 take 1 tablet by mouth once daily Magnesium 250 mg tab Take 250 mg by mouth once daily. 0 12/06/2021 Active Mv-Mins 13-Vxan-Zmaot No.1-Dha (Pnv-Ridott) 28-1-300 mg capsule (5 sources) Start: 12-15-2023 Mv-Mins 71-Iro n-Folic No.1-Dha (Pnv-Ridott) 28-1-300 mg capsule Active NMA PO December 15, 2023 12:00am Start: 12-15-2023 Mv-Mins 71-Iro n-Folic No.1-Dha (Pnv-Ridott) 28-1-300 mg capsule Active NMA PO December 14, 2023 11:00pm nitrofurantoin, macrocrystals 25 mg / nitrofurantoin, monohydrate 75 mg oral capsule (3 sources) Nitrofuran Antibacterial Start: 12-13-2020 take 1 capsule by mouth twice daily Nitrofurantoin Monohyd/M-Cryst (Macrobid) 100 mg Capsule Active 100 MG PO TWICE A DAY December 13, 2020 10:33am Pnv Comb No.58-Iron Bisgly-Fa () 10-400 mg-mcg Capsule (13 sources) Start: 12-13-2020 take 1 capsule by mouth once daily Pnv Comb No.58-Iron Bisgly-Fa () 10-400 mg-mcg Capsule Active 1 CAP PO DAILY December 13, 2020 10:33am Start: 12-13-2020 End: 12-15-2023 Pnv Comb No.58-Iron Bisgly-F a () 10-400 mg-mcg Capsule Discontinued 1 NMA PO DAILY December 13, 2020 12:00am December 15, 2023 1:46pm Start: 12-13-2020 End: 12-15-2023 Pnv Comb No.58-Iron Bisgly-F a () 10-400 mg-mcg Capsule Discontinued 1 NMA PO DAILY December 12, 2020 11:00pm December 15, 2023 12:46pm Start: 12-13-[address] [facility] once daily Pnv Comb No.58-Iron Bisgly-Fa () 10-400 mg-mcg Capsule Active 1 CAP PO DAILY December 13, 2020 12:00am PNV no.402-tzrk-rscsp acid ( VITAMIN) 28 mg iron- 800 mcg tab (2 sources) Start: 04-07-2019 PNV no.159-iro n-folic acid ( VITAMIN) 28 mg iron- 800 mcg tab predniSONE 20 mg oral tablet (3 sources) Start: 12-13-2020 take 40 mg by mouth once daily Prednisone Active 40 MG PO DAILY December 13, 2020 11:22am Completed/Discontinued Medications Medication Drug Class(es) Dates Sig (Normalized) Sig (Original) acetaminophen 325 mg / oxyCODONE hydrochloride 5 mg oral tablet (1 source) Opioid Agonist Start: 07-19-2024 End: 07-22-2024 Oxycodone-Acetamin ophen (Percocet) 5-325 mg tablet Discontinued 1 {tbl} PO Q4H as needed for pain 18 3 July 19, 2024 July 21, 2024 12:00am July 22, 2024 12:08am cetirizine hydrochloride 10 mg oral tablet (10 sources) Histamine-1 Receptor Antagonist Start: 11-30-2021 End: 12-15-2023 take 1 tablet by mouth once daily Cetirizine (Zyrtec) 10 mg Tablet Discontinued 10 mg PO DAILY November 30, 2021 12:00am December 15, 2023 1:46pm doxylamine succinate 25 mg oral tablet (5 sources) Start: 12-15-2023 End: 09-05-2024 Doxylamine Succinate (Unisom (Doxylamine)) 25 mg tablet Discontinued 12.5 mg PO AT BEDTIME as needed for sleep December 15, 2023 12:00am September 05, 2024 2:45pm pyridoxine hydrochloride 25 mg oral tablet (5 sources) Start: 12-15-2023 End: 09-05-2024 Pyridoxine (Vitamin B6) 25 mg tablet Discontinued 12.5 mg PO daily December 15, 2023 12:00am September 05, 2024 2:45pm Problems Active Problems Problem Classification Problem Date Documented Date Episodic/Chronic Allergic reactions (13 sources) Allergic reaction to drug; Translations: [Allergy, unspecified, initial encounter] 12-21-2020 Episodic Other complications of ; puerperium affecting management of mother (1 source) Vaginal tear resulting from childbirth; Translations: [Obstetric high vaginal laceration alone] 07-19-2024 Episodic Other complications of (20 sources) Disease caused by 2019-nCoV; Translations: [Other viral diseases complicating , first trimester] 12-15-2023 Episodic Comment on above: October, asa 81 mg Other complications of (20 sources) High risk ; Translations: [Supervision of high risk , unspecified, unspecified trimester] 04-26-2024 Episodic Comment on above: [id number], ROLAND 5, surprise OSCAR Keating, Jaxon Other complications of (1 source) Supervision of high risk , unspecified, third trimester; Translations: [Supervision of high risk , unspecified, third trimester] Onset: 07-30-2024 Episodic Other complications of (2 sources) Supervision of high risk , unspecified, second trimester; Translations: [Supervision of high risk , unspecified, second trimester] Onset: 07-12-2024 Episodic Other complications of (2 sources) Other viral diseases complicating , first trimester; Translations: [Other viral diseases complicating , first trimester] Onset: 07-12-2024 Episodic Other complications of (1 source) Supervision of high risk , unspecified, unspecified trimester; Translations: [Supervision of high risk , unspecified, unspecified trimester] Onset: 09-03-2024 Episodic Other and delivery including normal (20 sources) Vaginal delivery; Translations: [Encounter for full-term uncomplicated delivery] Onset: 07-30-2024 Episodic Comment on above: normal anatomy. gene tic & carrier testing- declined. JV JV boy Other screening for suspected conditions (not mental disorders or infectious disease) (2 sources) Thyroid function tests abnormal; Translations: [Abnormal results of thyroid function studies] Onset: 09-05-2024 09-05-2024 Episodic Residual codes; unclassified (20 sources) Gluten free diet; Translations: [Other specified health status] 12-22-2023 Episodic Comment on above: for joint pain not c eliac Residual codes; unclassified (20 sources) FH: Hypothyroidism; Translations: [Family history of other endocrine, nutritional and metabolic diseases] 12-15-2023 Episodic Comment on above: Mother, Maternal Aun t & Grandmother Residual codes; unclassified (2 sources) 38 weeks gestation of ; Translations: [38 weeks gestation of ] Onset: 07-12-2024 Episodic Residual codes; unclassified (2 sources) Family history of other endocrine, nutritional and metabolic diseases; Translations: [Family history of other endocrine, nutritional and metabolic diseases] Onset: 07-12-2024 Episodic Residual codes; unclassified (2 sources) Other specified health status; Translations: [Other specified health status] Onset: 07-12-2024 Episodic Residual codes; unclassified (1 source) 37 weeks gestation of ; Translations: [37 weeks gestation of ] Onset: 07-05-2024 Episodic Residual codes; unclassified (1 source) 36 weeks gestation of ; Translations: [36 weeks gestation of ] Onset: 06-28-2024 Episodic Thyroid disorders (20 sources) Subclinical hypothyroidism; Translations: [Hypothyroidism, unspecified] Onset: 07-12-2024 12-15-2023 Chronic Comment on above: not on medication Urinary tract infections (20 sources) Recurrent urinary tract infection; Translations: [Urinary tract infection, site not specified] Onset: 07-30-2024 12-22-2023 Episodic Viral infection (2 sources) COVID-19; Translations: [COVID-19] Onset: 07-12-2024 Past or Other Problems Problem Classification Problem Date Documented Da te Episodic/Chronic Immunizations and screening for infectious disease (1 source) Encounter for immunization; Translations: [Encounter for immunization] Onset: 04-26-2024 Episodic Other lower respiratory disease (1 source) Cough; Translations: [COUGH] Onset: 03-19-2017 Episodic Other upper respiratory disease (1 source) Nasal congestion; Translations: [NASAL CONGESTION] Onset: 03-19-2017 Episodic Other upper respiratory infections (1 source) Acute upper respiratory infection, unspecified; Translations: [ACUTE UPPER RESPIRATORY INFECTION, UNSPECIFIED] Onset: 03-19-2017 Episodic Residual codes; unclassified (1 source) 27 weeks gestation of ; Translations: [27 weeks gestation of ] Onset: 04-26-2024 Episodic Residual codes; unclassified (1 source) 23 weeks gestation of ; Translations: [23 weeks gestation of ] Onset: 2024 Episodic Residual codes; unclassified (1 source) 19 weeks gestation of ; Translations: [19 weeks gestation of ] Onset: 02-27-2024 Episodic Results Test Name Value Interpretation Reference Range Facility Medical Laboratory Specialist Office Visit Reporton 09-05-2024 Medical Laboratory Specialist Office Visit Report [facility] [address], [address] [place] [address] OFFICE VISIT Date of Service: 09/05/24 MR#: [id number] Acct: [id number] Name: KAUSHAL RODRIGUEZ Rep #: [id number] : 1995 Provider: Dr. Lluvia Morgan DO Age/Sex: 29/F [place] [facility] [place]: Signed Intake Vital Signs 07/15/24 18:20 09/05/24 14:34 09/05/24 14:35 Height 5 ft 3 in 5 ft 3 in 5 ft 3 in Weight: 129 lb 2 oz BMI 22.8 BP 113/76 Intake Visit Reasons: visit (obstetrics) Appliance Adjuster Required: No Is patient in pain?: No Allergies sulfamethoxazole (From Bactrim) Allergy (Severe, Verified 09/05/24 14:34) Swelling trimethoprim (From Bactrim) Allergy (Verified 09/05/24 14:34) Rash gluten Adverse Reaction (Intermediate, Verified 09/05/24 14:34) Abd cramps/diarrhea Medications ???Medication ???Instructions ???Recorded ???Confirmed ???Type multivit-min no.71-iron fum 28 cap PO 12/15/23 09/05/24 History mg-folate no.1 1 mg-dha 300 mg capsule (PNV-Ridott) calcium carbonate 500 mg PO QDAY 09/05/24 09/05/24 H istory cephalexin 250 mg capsule 250 mg PO ONCE uti prevention #90 09/05/24 09/05/24 Rx caps cholecalciferol (vitamin D3) 50 50 mcg PO QDAY 09/05/24 09/05/24 H istory mcg (2,000 unit) capsule : Yes PFSH Medical History Vaginal tear resulting from childbirth Vaginal delivery Seasonal allergies Surgical History History of surgery Family History Mother Thyroid disorder hypothyroidism Aunt Thyroid disorder Maternal Hypothyroid Grandmother Thyroid disorder Maternal hypothyroid Social History (Updated 09/05/24 @ 14:39 by Paris Jones) adopted: No household members: spouse and children number of children: 2 current occupational status: employed current occupation: [employer] current occupational exposures/hazards: No pets and animals: Yes pets and animals: dog(s) history of recent travel: No sexually active: Yes Smoking Status: Never smoker alcohol intake: never substance use type: does not use diet: gluten free well-balanced diet: daily or most days caffeine: No eating out: rarely or never during the past year weight has: remained stable what type of physical activity do you participate in: walking frequency: 3-4 times per week duration: 15-30 minutes/day polly/mu-ism: Mu-Ism seatbelt use: always do you feel safe at home: Yes 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 Date Name GA/Weeks Outcome Route Bth Weight Infant Gen Labor Lgth Anesthesia Del Locatn Provider FOB 12/01/21 Jose Alfredoey 41 live - full term 7#1oz Female epidural [facility] Ch ristina Barrientos Jaxon 07/15/24 Ngo 39 live - full term 6lbs 11oz Male [facility] JV Jaxon Delivery Date: 12/01/21 Last Updated by: Elma Mai IOL post dates Delivery Date: 07/15/24 Last Updated by: Astrid Ricci RN See problem list for complications Depression Screen PHQ-2/9 PHQ-2 Over the last 2 weeks, how often have you been bothered by any of the following problems? 1. Little interest or pleasure in doing things: not at all 2. Feeling down, depressed, or hopeless: not at all Total score: 0 Post HPI Routine Follow-Up: Details: KAUSHAL RODRIGUEZ is a 29 year old who presents for her post visit. Feeding: Breast Menses resumed: No (no bleeding x 3 weeks.) [employer] since delivery: No Emotional Support: Yes Last Pap:: 07/11/22 Control Method: vasectomy ROS Const Reports system reviewed and no additional complaints, except as documented GI Reports system reviewed and no additional complaints, except as documented, Denies bloating, Denies constipation, Denies nausea and Denies vomiting Reports system reviewed and no additional complaints, except as documented, Denies abnormal vaginal bleeding, Denies pelvic pain, Denies sexual dysfunction, Denies urinary incontinence, Denies urinary hesitancy, Denies urinary urgency and Denies vaginal discharge Skin/Breast Reports system reviewed and no additional complaints, except as documented and Reports as per HPI Psych Reports as per HPI Exam Const General: cooperative, healthy appearing, comfortable and no acute distress HENMT Head: normal to inspection Neck Neck: normal visual inspection and no lymphadenopathy Thyroid: thyroid normal (more content not included)... Normal [facility] Discharge Instructionon 06-19 Discharge Instruction [facility] Medical Records Department [address] [place] [address] Instructions for Home/Discharge Instructions 07/16/2404 MR#: [id number] Acct: [id number] Name: KAUSHAL RODRIGUEZ Rep #: [id number] : 1995 29 From: Lluvia Shah DO PCP: Dr. Paris Lee MD Status:ADM IN Discharge Instructions Diet Discharge Diet: No restrictions DC O2, CPAP, BIPAP needs Home O2 Discharge instructions: No Dressing / Incision Discharge Activity: Return to Normal Activity, May Not Drive (while taking narcotic pain medications.) and May Shower May resume sexual activity in: 4-6 weeks Dressing / Incision Call your doctor if your incision/area has: Continuous Slow Oozing, Sudden Increased Bleeding, Increased Pain/ Swelling, Increased Redness and Foul Smelling Discharge Follow Up Care Please Follow Up With: Lluvia Shah DO When: Call [phone] to make an appointment with your doctor in 6 weeks. If you had elevated blood pressure or 4th degree laceration, you will need to be seen in 2 weeks. Test Results: Test results from this visit will be discussed in further detail at your follow-up appointment, if applicable. Discharge Plan Admission Admit Date/Time: 07/15/24 17:45 Attending Provider: Lluvia Shah Primary Care Provider: Paris Lee Discharge Orders/Prescriptions Prescriptions: No Action PNV-Ridott 28-1-300 mg capsule PO pyridoxine (vitamin B6) 25 mg tablet 12.5 mg PO QDAY Unisom (doxylamine) 25 mg tablet 12.5 mg PO QHS PRN (Reason: sleep) cephalexin 250 mg capsule 250 mg PO ONCE Qty: 20 12RF Rx Instructions: use x1 after intercourse. Referrals / Follow Up: Paris Lee MD [Primary Care Provider] - 07/16/24 07 Lluvia Shah DO CC: Dr. Paris Lee MD Signed Normal [facility] Absolute lymphocyte countOrd ered By: Lluvia Gordo on 07-15-2024 Lymphocytes Auto (Unsp spec) [#/Vol] 1.83 10*3/uL 0.83-4.51 [facility] Absolute neutrophil countOrd ered By: Lluvia Zaldivarcarolina on 07-15-2024 Neutrophils (Bld) [#/Vol] 7.1 10*3/uL 2.0-7.7 [facility] Automated blood erythrocyte countOrdered By: Lluvia Gordo on 07-15-2024 RBC (Bld) [#/Vol] 4.77 10*6/uL Normal 4.2-5.4 [facility] Comment on above: Performed By: #### L 100.0100, BTS #### [facility] [address] [place], [address] Automated blood hematocrit ( percentage)Ordered By: Lluvia Gordo on 07-15-2024 Hematocrit (Bld) [Volume fraction] 40.7 % Normal 37-47 [facility] Comment on above: Performed By: #### L 100.0100, BTS #### [facility] [address] [place], [address] Automated lymphocyte count a s percentage of total leukocytesOrdered By: Lluvia Gordo on 07-15-2024 Lymphocytes/100 WBC (Bld) 18.7 % Low 19-41 [facility] Comment on above: Performed By: #### L 100.0100, BTS #### [facility] [address] [place], [address] Lymphocytes/100 WBC Auto (Unsp spec) 18.7 % Low 19-41 [facility] Basophil percentageOrdered B y: Lluvia Gordo on 07-15-2024 Basophils/100 WBC (Bld) 0.5 % Normal 0-1 [facility] Comment on above: Performed By: #### L 100.0100, BTS #### [facility] [address] [place], [address] CBC W/Diff, Automatedon 04-2 Absolute Lymph 1.83 X10 3/uL Normal 0.83-4.51 [facility] Comment on above: Performed By: #### L 100.0100, BTS #### [facility] [address] [place], [address] Absolute Neut 7.1 X10 3/uL Normal 2.0-7.7 [facility] Comment on above: Performed By: #### L 100.0100, BTS #### [facility] [address] [place], [address] IG% 0.900 Normal 0.0-0.9 [facility] Comment on above: Result Comment: IG% - Immature Granulocytes (promyelocytes, myelocytes and metamyelocytes) > 1% indicates that a LEFT SHIFT is Present. Performed By: #### L 100.0100, BTS #### [facility] [address] [place], [address] Nucleated RBC (Bld) [#/Vol] 0 10*3/uL Normal 0-5 [facility] Comment on above: Performed By: #### L 100.0100, BTS #### [facility] [address] [place], [address] RDW SD 43.9 fl Normal 35.1-43.9 [facility] Comment on above: Performed By: #### L 100.0100, BTS #### [facility] [address] [place], [address] Eosinophil percentageOrdered By: Lluvia Caro on 07-15-2024 Eosinophils/100 WBC (Bld) 0.6 % Normal 0-5 [facility] Comment on above: Performed By: #### L 100.0100, BTS #### [facility] [address] [place], [address] Erythrocyte distribution wid th (RBC) [Ratio]Ordered By: Lluvia Caro on 07-15-2024 Erythrocyte distribution width (RBC) [Entitic vol] 43.9 fL 35.1-43.9 [facility] Erythrocyte distribution wid th ratioOrdered By: Lluvia Caro on 07-15-2024 Erythrocyte distribution width (RBC) [Ratio] 14.2 % Normal 11.6-14.6 [facility] Comment on above: Performed By: #### L 100.0100, BTS #### [facility] [address] [facility] [place], [address] Erythrocyte distribution wid th standard deviationOrdered By: Lluvia Caro on 07-15-2024 Erythrocyte distribution width (RBC) [Ratio] 43.9 fl 35.1-43.9 [facility] H AND P Exam - OB/GYNon 06-19 H&P Exam - RECRUITING SPECIALIST [facility] Medical Records Department [address] [place] [address] H P Exam - RECRUITING SPECIALIST 07/15/24 1859 MR#: [id number] Acct: [id number] Name: KAUSHAL RODRIGUEZ Rep #: [id number] : 1995 29 From: Lluvia Shah DO PCP: Dr. Paris Lee MD Status:ADM IN Location: [address] HPI - General General Date of Admission: 07/15/24 HPI Narrative KAUSHAL RODRIGUEZ, is a 29 2 P1 @ 39 weeks 2 days who presents to D in active labor. She is breathing through contractions and requesting an epidural. She was 4 cm dialted an hour ago and is now 7 cm. still intact. Maternal Data Information ROLAND Calculator Estimated Delivery Date Method Current WG Current Estimate 07/20/24 LMP (Certain) 39w 2d PFSH PFSH Medical History Vaginal delivery Seasonal allergies Home Medications ???Medication ???Instructions ???Recorded ???Last Taken ???Type doxylamine succinate 25 mg tablet 12.5 mg PO QHS PRN 12/15/23 Unkno wn History (Unisom (doxylamine)) multivit-min no.71-iron fum 28 cap PO 12/15/23 Unknown History mg-folate no.1 1 mg-dha 300 mg capsule (PNV-Ridott) pyridoxine (vitamin B6) 25 mg 12.5 mg PO QDAY 12/15/23 Unknown H istory tablet cephalexin 250 mg capsule 250 mg PO ONCE uti prevention #20 12/22/23 Unknown Rx caps Allergy/AdvReac Type Severity Reaction Status Date / Time sulfamethoxazole (From Allergy Severe Swelling Verified 07/12/24 14:55 Bactrim) trimethoprim (From Bactrim) Allergy Rash Verified 07/12/24 14:55 gluten AdvReac Intermediate Abd Verified 07/12/24 14:55 cramps/diarrhea Family History Mother Thyroid disorder hypothyroidism Aunt Thyroid disorder Maternal Hypothyroid Grandmother Thyroid disorder Maternal hypothyroid Surgical History History of surgery Social History adopted: No household members: spouse and children number of children: 1 current occupational status: employed current occupation: [employer] current occupational exposures/hazards: No pets and animals: Yes pets and animals: dog(s) history of recent travel: No sexually active: Yes Smoking Status: Never smoker alcohol intake: never substance use type: does not use diet: gluten free well-balanced diet: daily or most days caffeine: No eating out: rarely or never during the past year weight has: remained stable what type of physical activity do you participate in: walking frequency: 3-4 times per week duration: 15-30 minutes/day polly/mu-ism: Mu-Ism seatbelt use: always do you feel safe at home: Yes 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 Date Name GA/Weeks Outcome Route Bth Weight Gen Labor Lgth Anesthesia Del Locatn Provider FOB 12/01/21 Rishabh 41 live - full term 7#1oz Female epidural [facility] pierce Coates Delivery Date: 12/01/21 Last Updated by: Elma Mai IOL post dates Visit Details Expected Delivery Route/Plan Labor Preferences- CB/BF classes: [] labor support person: [] labor intervention preferences: [] pain management options preferred: [] cut cord/dad catch: [] : [] PP control planned: [] discussed possible routes of delivery and associated risks: [] special requests: [] Plans Covid status: [] Flu vaccine: [] Tdap vaccine: given Rhogam: na LARC form signed: [] movement and labor precautions reviewed. Problem list reviewed and updated with the most current plan of care details and appropriate orders placed. Relevant counseling for the gestational age provided. Continue routine care and follow up unless otherwise noted in visit notes/problem list details OB Flowsheet Initial Weight: 122 lb Date -???-???-???-???-??? -???-???-???-???-??? -???-???- EGA Weight BP Urine Prot -???-???-???-???-??? -???-???-???-???-??? -???-???- Glucose FHR FuHt Pres Dilation -???-???-???-???-??? -???-???-???-???-??? -???-???- Effaced St Visit Note 12/22/23 -???-???-???-???-??? -???-???-???-???-??? -???-???- 9w 6d 122 lb (+0 oz) 116/79 -???-???-???-???-??? -???-???-???-???-??? -???-???- 158 -???-???-???-???-??? -???-???-???-???-??? -???-???- LC-3.78cm on with LMP. 01/24/24 -???-???-???-???-??? -???-???-???-???-??? -???-???- 14w 4d 127 lb 6 oz (+5 lb 6 oz) 108/72 Negative -???-???-???-???-??? -???-???-???-???-??? -???-???- Negative 150 -???-???- (more content not included)... Normal [facility] Hemoglobin measurementOrdere d By: Lluvia Caro on 07-15-2024 Hemoglobin (Bld) [Mass/Vol] 13.6 g/dL Normal 12.0-15.0 [facility] Comment on above: Performed By: #### L 100.0100, BTS #### [facility] [address] [place], [place], [id number] Immature granulocytes/100 WB C Auto (Bld)Ordered By: Lluvia Caro on 07-15-2024 Immature granulocytes/100 WBC (Bld) 0.900 % 0.0-0.9 [facility] Comment on above: IG% - Immature Granu locytes (promyelocytes, myelocytes and metamyelocytes) > 1% indicates that a LEFT SHIFT is Present. Lymphocytes Auto (Unsp spec) [#/Vol]Ordered By: Lluvia Caro on 07-15-2024 Lymphocytes (Bld) [#/Vol] 1.83 10*3/uL 0.83-4.51 [facility] MCV (mean corpuscular volume ) determinationOrdered By: Lluvia Caro on 07-15-2024 MCV (RBC) [Entitic vol] 85.3 fL Normal 81-99 [facility] Comment on above: Performed By: #### L 100.0100, BTS #### [facility] [address] [place], [address] MR/OB.VAGDELIon 07-15-2024 MR/OB.VAGDELI [facility] Medical Records Department [address] [place] [address] OB Vaginal Delivery 07/15/241944 MR#: [id number] Acct: [id number] Name: KAUSHAL RODRIGUEZ Rep #: [id number] : 1995 29 From: Lluvia Shah DO PCP: Dr. Paris Lee MD Status:ADM IN Location: [id number] Assessment Plan (1) Active labor at term: (2) Supervision of high-risk : QUALIFIERS: Trimester: second trimester Qualified Code(s): O09.92 - Supervision of high risk , unspecified, second trimester COMMENT: [id number], ROLAND 07/20/24, doron MOORE Rishabh, Jaxon (3) : QUALIFIERS: Weeks of gestation: 38 weeks Qualified Code(s): Z3A.38 - 38 weeks gestation of COMMENT: normal anatomy. genetic carrier testing- declined. (4) Gluten free diet: COMMENT: for joint pain not celiac (5) Borderline hypothyroidism: COMMENT: not on medication (6) COVID-19 affecting in first trimester: COMMENT: October, asa 81 mg Maternal Data Information ROLAND Calculator Estimated Delivery Date Method Current WG Current Estimate 07/20/24 LMP (Certain) 39w 2d Final ROLAND: 07/20/24 Gestational age: 39 weeks 2 days Vaginal Delivery Maternal Presentation Maternal Presentation: Active Labor Type of Induction: Amniotomy Vaginal Delivery Information Procedure Performed: Spontaneous Vaginal Delivery Surgeon/Practitioner : Lluvia Shah Date of Procedure: 07/15/24 Pre-Procedure Diagnosis: active labor, @ 39 weeks 2 days Post-Procedure Diagnosis: active labor, @ 39 weeks 2 days Type of anesthesia: None Estimated Blood Loss: 200cc Time of Delivery: 19:18 Findings Description of procedure: Patient began pushing and delivered the head in the CARMEN presentation. The head was delivered atraumatically. The anterior and posterior shoulders delivered without complication followed by the rest of the and the was placed on the maternal abdomen. Delayed cord clamping was employed for approximately 60 seconds. Cord was clamped and cut and gentle traction was applied to the cord and the placenta delivered spontaneously immediately following it was noted to be intact with three-vessel cord. The perineum and vagina were inspected and noted to have a right labial laceration. This was repaired using a 3-0 vicryl rapide EBL was [100 cc]. Patient and tolerated delivery well. Procedure findings: viable male . 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 07/15/241951 Cosigner Signature (if applicable): CC: Dr. Paris Lee MD; Dr. Lluvia Shah DO Signed Normal [facility] Mean corpuscular hemoglobin (MCH) determinationOrdered By: Lluvia Caro on 07-15-2024 MCH (RBC) [Entitic mass] 28.5 pg Normal 27.0-32.0 [facility] Comment on above: Performed By: #### L 100.0100, BTS #### [facility] [address] [place], [place], [id number] Mean corpuscular hemoglobin concentration (MCHC) determinationOrdered By: Lluvia Caro on 07-15-2024 MCHC (RBC) [Mass/Vol] 33.4 g/dL Normal 32-36 [facility] Comment on above: Performed By: #### L 100.0100, BTS #### [facility] [address] [place], [place], [id number] Mean platelet volume determi nationOrdered By: Lluvia Caro on 07-15-2024 Platelet mean volume (Bld) [Entitic vol] 10.6 fL Normal 6.2-12.0 [facility] Comment on above: Performed By: #### L 100.0100, BTS #### [facility] [address] [place], [address] Monocyte percentageOrdered B y: Lluvia Caro on 07-15-2024 Monocytes/100 WBC (Bld) 6.4 % Normal 0-10 [facility] Comment on above: Performed By: #### L 100.0100, BTS #### [facility] [address] [place], [address] Neutrophil percentageOrdered By: Lluvia Caro on 07-15-2024 Neutrophils/100 WBC (Bld) 72.9 % High 47-70 [facility] Comment on above: Performed By: #### L 100.0100, BTS #### [facility] [address] [place], [address] Nucleated red blood cell per centageOrdered By: Lluvia Caro on 07-15-2024 Nucleated RBC/100 WBC (Bld) [Ratio] 0 % 0-5 [facility] Platelet countOrdered By: Black Caro on 07-15-2024 Platelets (Bld) [#/Vol] 219 10*3/uL Normal 150-450 [facility] Comment on above: Performed By: #### L 100.0100, BTS #### [facility] [address] [place], [address] Syphilis Antibodieson 2024 Syphilis Abs Non-Reactive Normal Nonreactive [facility] Comment on above: Performed By: #### L 509.8002 ####[facility] [address] [place], [address] T. pallidum abOrdered By: Black Caro on 07-15-2024 Syphilis Total Antibody Non-Reactive Nonreactiv e [facility] Type AND Screenon 07-15-2024 Ab SCREEN GEL Negative Normal [facility] Comment on above: Order Comment: Labor Performed By: #### L 100.0100, BTS #### [facility] [address] [place], [place], [address] White blood cell (WBC) count Ordered By: Lluvia Caro on 07-15-2024 WBC (Bld) [#/Vol] 9.8 10*3/uL Normal 4.4-11.0 [facility] Comment on above: Performed By: #### L 100.0100, BTS #### [facility] [address] [place], [address] Laboratory - Chemistry and C hemistry - challengeOrdered By: Kya Go on 07-12-2024 Glucose Ql (U) Negative [facility] - UrinalysisOrder ed By: Kya Go on 07-12-2024 Protein Ql (U) Negative [facility] Specialist Office Visit Reporton 07-12-2024 Medical Laboratory Specialist Office Visit Report [facility] [address], [address] [place] [address] OFFICE VISIT Date of Service: 07/12/24 MR#: [id number] Acct: [id number] Name: KAUSHAL RODRIGUEZ Rep #: [id number] : 1995 Provider: CHITO white Age/Sex: 29/F [place] [facility] [place] Status: Signed Intake Vital Signs 01/24/24 14:51 07/05/24 15:11 07/12/24 14:56 07/12/24 14:57 Height 5 ft 3 in 5 ft 3 in 5 ft 3 in 5 ft 3 in Weight: 148 lb 6 oz BMI 26.2 BP 115/69 Intake Visit Reasons: 38 WK OB Appliance Adjuster Required: No Is patient in pain?: No Allergies sulfamethoxazole (From Bactrim) Allergy (Severe, Verified 07/12/24 14:55) Swelling trimethoprim (From Bactrim) Allergy (Verified 07/12/24 14:55) Rash gluten Adverse Reaction (Intermediate, Verified 07/12/24 14:55) Abd cramps/diarrhea Medications ???Medication ???Instructions ???Recorded ???Confirmed ???Type doxylamine succinate 25 mg tablet 12.5 mg PO QHS PRN 12/15/2307/12 History (Unisom (doxylamine)) multivit-min no.71-iron fum 28 cap PO 12/15/23 07/12/24 History mg-folate no.1 1 mg-dha 300 mg capsule (PNV-Ridott) pyridoxine (vitamin B6) 25 mg 12.5 mg PO QDAY 12/15/23 07/12/24 History tablet cephalexin 250 mg capsule 250 mg PO ONCE uti prevention #20 12/22/23 07/12/24 Rx caps Last Menstrual Period: 10/14/23 Zika: Zika virus screening: Negative : No Have you fallen in the past year?: No PFSH PFSH Medical History Vaginal delivery Seasonal allergies Surgical History History of surgery Family History Mother Thyroid disorder hypothyroidism Aunt Thyroid disorder Maternal Hypothyroid Grandmother Thyroid disorder Maternal hypothyroid Social History adopted: No household members: spouse and children number of children: 1 current occupational status: employed current occupation: [employer] current occupational exposures/hazards: No pets and animals: Yes pets and animals: dog(s) history of recent travel: No sexually active: Yes Smoking Status: Never smoker alcohol intake: never substance use type: does not use diet: gluten free well-balanced diet: daily or most days caffeine: No eating out: rarely or never during the past year weight has: remained stable what type of physical activity do you participate in: walking frequency: 3-4 times per week duration: 15-30 minutes/day polly/mu-ism: Mu-Ism seatbelt use: always do you feel safe at home: Yes 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 Date Name GA/Weeks Outcome Route Bth Weight Infant Gen Labor Lgth Anesthesia Del Locatn Provider FOB 12/01/21 Rishabh 41 live - full term 7#1oz Female epidural [facility] Ch pierce Coates Delivery Date: 12/01/21 Last Updated by: Elma Mai IOL post dates HPI 38 WK OB Details: KAUSHAL RODRIGUEZ is a 29 year old who presents for routine OB visit. OB Visit ROLAND Calculator Estimated Delivery Date Method Current WG Current Estimate 07/20/24 LMP (Certain) 38w 6d Expected Delivery Route/Plan Labor Preferences- CB/BF classes: [] labor support person: [] labor intervention preferences: [] pain management options preferred: [] cut cord/dad catch: [] : [] PP control planned: [] discussed possible routes of delivery and associated risks: [] special requests: [] Specific Issue/Plans Covid status: [] Flu vaccine: [] Tdap vaccine: given Rhogam: na LARC form signed: [] movement and labor precautions reviewed. Problem list reviewed and updated with the most current plan of care details and appropriate orders placed. Relevant counseling for the gestational age provided. Continue routine care and follow up unless otherwise noted in visit notes/problem list details Initial Weight: 122 lb Date -???-???-???-???-??? -???-???-???-???-??? -???-???- EGA Weight BP Urine Prot -???-???-???-???-??? -???-???-???-???-??? -???-???- Glucose FHR FuHt Pres Dilation -???-???-???-???-??? -???-???-???-???-??? -???-???- Effaced St Visit Note 12/22/23 -???-???-???-???-??? -???-???-???-???-??? -???-???- 9w 6d 122 lb (+0 oz) 116/79 -???-???-???-???-??? -???-???-???-???-??? -???-???- 158 -???-???-???-???-??? -???-???-???-???-??? -???-???- LC-3.78cm on with LMP. 01/24/24 -???-???-???-???-??? -?? (more content not included)... Normal [facility] - Chemistry and C hemistry - challengeOrdered By: Kate Luna on 07-05-2024 Glucose Ql (U) Negative [facility] - UrinalysisOrder ed By: Kate Luna on 07-05-2024 Protein Ql (U) Negative [facility] Specialist Office Visit Reporton 07-05-2024 Medical Laboratory Specialist Office Visit Report [facility] [address], [address] [place] [address] OFFICE VISIT Date of Service: 07/05/24 MR#: [id number] Acct: [id number] Name: KAUSHAL RODRIGUEZ Rep #: [id number] : 1995 Provider: CHITO Bender ams Age/Sex: 29/F [place] [facility] [place] Status: Signed Intake Vital Signs 01/24/24 14:51 03/29/24 15:17 06/28/24 15:43 07/05/24 15:11 Height 5 ft 3 in 5 ft 3 in 5 ft 3 in 5 ft 3 in Weight: 151 lb BMI 26.7 BP 116/79 Intake Visit Reasons: 37 WK OB Chief Complaint: 37wk OB Appliance Adjuster Required: No Is patient in pain?: No Allergies sulfamethoxazole (From Bactrim) Allergy (Severe, Verified 07/05/24 15:08) Swelling trimethoprim (From Bactrim) Allergy (Verified 07/05/24 15:08) Rash gluten Adverse Reaction (Intermediate, Verified 07/05/24 15:08) Abd cramps/diarrhea Medications ???Medication ???Instructions ???Recorded ???Confirmed ???Type doxylamine succinate 25 mg tablet 12.5 mg PO QHS PRN 12/15/2307/05 History (Unisom (doxylamine)) multivit-min no.71-iron fum 28 cap PO 12/15/23 07/05/24 History mg-folate no.1 1 mg-dha 300 mg capsule (PNV-Ridott) pyridoxine (vitamin B6) 25 mg 12.5 mg PO QDAY 12/15/23 07/05/24 History tablet cephalexin 250 mg capsule 250 mg PO ONCE uti prevention #20 12/22/23 07/05/24 Rx caps Last Menstrual Period: 10/14/23 : No Have you fallen in the past year?: No PFSH PFSH Medical History Vaginal delivery Seasonal allergies Surgical History History of surgery Family History Mother Thyroid disorder hypothyroidism Aunt Thyroid disorder Maternal Hypothyroid Grandmother Thyroid disorder Maternal hypothyroid Social History adopted: No household members: spouse and children number of children: 1 current occupational status: employed current occupation: [employer] current occupational exposures/hazards: No pets and animals: Yes pets and animals: dog(s) history of recent travel: No sexually active: Yes Smoking Status: Never smoker alcohol intake: never substance use type: does not use diet: gluten free well-balanced diet: daily or most days caffeine: No eating out: rarely or never during the past year weight has: remained stable what type of physical activity do you participate in: walking frequency: 3-4 times per week duration: 15-30 minutes/day polly/mu-ism: Mu-Ism seatbelt use: always do you feel safe at home: Yes 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 Date Name GA/Weeks Outcome Route Bth Weight Gen Labor Lgth Anesthesia Del Locatn Provider FOB 12/01/21 Rishabh 41 live - full term 7#1oz Female epidural [facility] Ch pierce Coates Delivery Date: 12/01/21 Last Updated by: Elma Mai IOL post dates HPI 37 WK OB Details: KAUSHAL RODRIGUEZ is a 29 year old who presents for routine OB visit. OB Visit ROLAND Calculator Estimated Delivery Date Method Current WG Current Estimate 07/20/24 LMP (Certain) 37w 6d Expected Delivery Route/Plan Labor Preferences- CB/BF classes: [] labor support person: [] labor intervention preferences: [] pain management options preferred: [] cut cord/dad catch: [] : [] PP control planned: [] discussed possible routes of delivery and associated risks: [] special requests: [] Specific Issue/Plans Covid status: [] Flu vaccine: [] Tdap vaccine: given Rhogam: na LARC form signed: [] movement and labor precautions reviewed. Problem list reviewed and updated with the most current plan of care details and appropriate orders placed. Relevant counseling for the gestational age provided. Continue routine care and follow up unless otherwise noted in visit notes/problem list details Initial Weight: 122 lb Date -???-???-???-???-??? -???-???-???-???-??? -???-???- EGA Weight BP Urine Prot -???-???-???-???-??? -???-???-???-???-??? -???-???- Glucose FHR FuHt Pres Dilation -???-???-???-???-??? -???-???-???-???-??? -???-???- Effaced St Visit Note 12/22/23 -???-???-???-???-??? -???-???-???-???-??? -???-???- 9w 6d 122 lb (+0 oz) 116/79 -???-???-???-???-??? -???-???-???-???-??? -???-???- 158 -???-???-???-???-??? -???-???-???-???-??? -???-???- LC-3.78cm on with LMP. 01/24/24 -???-???-???-???-??? -???-???-???-???-??? -???- (more content not included)... Normal [facility] Rule out Beta Strep (Grp. B) on 07-01-2024 KRISTIN Group B Beta Streptococcus is not isolated. Normal [facility] Comment on above: Performed By: #### M 100.3400 #### [facility] [address] [place] [address] [address]ie[address] [place], [place], [id number] Laboratory - Chemistry and C hemistry - challengeOrdered By: Lluvia Caro on 06-28-2024 Glucose Ql (U) Negative [facility] - UrinalysisOrder ed By: Lluvia Caro on 06-28-2024 Protein Ql (U) Negative [facility] Specialist Office Visit Reporton 06-28-2024 Medical Laboratory Specialist Office Visit Report [facility]'[address], [address] [place] [address] OFFICE VISIT Date of Service: 06/28/24 MR#: [id number] Acct: [id number] Name: KAUSHAL RODRIGUEZ Rep #: [id number] : 1995 Provider: Dr. Lluvia Morgan DO Age/Sex: 29/F [place] [facility] [place] Status: Signed Intake Vital Signs 01/24/24 14:51 06/14/24 14:14 06/28/24 15:42 06/28/24 15:43 Height 5 ft 3 in 5 ft 3 in 5 ft 3 in 5 ft 3 in Weight: 151 lb BMI 26.7 BP 107/71 Intake Visit Reasons: 36 WK OB Appliance Adjuster Required: No Is patient in pain?: No Allergies sulfamethoxazole (From Bactrim) Allergy (Severe, Verified 06/28/24 15:42) Swelling trimethoprim (From Bactrim) Allergy (Verified 06/28/24 15:42) Rash gluten Adverse Reaction (Intermediate, Verified 06/28/24 15:42) Abd cramps/diarrhea Medications ???Medication ???Instructions ???Recorded ???Confirmed ???Type doxylamine succinate 25 mg tablet 12.5 mg PO QHS PRN 12/15/2306/28 History (Unisom (doxylamine)) multivit-min no.71-iron fum 28 cap PO 12/15/23 06/28/24 History mg-folate no.1 1 mg-dha 300 mg capsule (PNV-Ridott) pyridoxine (vitamin B6) 25 mg 12.5 mg PO QDAY 12/15/23 06/28/24 History tablet cephalexin 250 mg capsule 250 mg PO ONCE uti prevention #20 12/22/23 06/28/24 Rx caps Last Menstrual Period: 10/14/23 Zika: Zika virus screening: Negative : No PFSH PFSH Medical History Vaginal delivery Seasonal allergies Surgical History History of surgery Family History Mother Thyroid disorder hypothyroidism Aunt Thyroid disorder Maternal Hypothyroid Grandmother Thyroid disorder Maternal hypothyroid Social History adopted: No household members: spouse and children number of children: 1 current occupational status: employed current occupation: [employer] current occupational exposures/hazards: No pets and animals: Yes pets and animals: dog(s) history of recent travel: No sexually active: Yes Smoking Status: Never smoker alcohol intake: never substance use type: does not use diet: gluten free well-balanced diet: daily or most days caffeine: No eating out: rarely or never during the past year weight has: remained stable what type of physical activity do you participate in: walking frequency: 3-4 times per week duration: 15-30 minutes/day polly/mu-ism: Mu-Ism seatbelt use: always do you feel safe at home: Yes 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 Date Name GA/Weeks Outcome Route Bth Weight Infant Gen Labor Lgth Anesthesia Del Jayatsteven Provider FOB 12/01/21 Rishabh 41 live - full term 7#1oz Female epidural [facility] Ch pierce Coates Delivery Date: 12/01/21 Last Updated by: Elma Mai IOL post dates HPI 36 WK OB Details: KAUSHAL RODRIGUEZ is a 29 year old who presents for routine OB visit. OB Visit ROLAND Calculator Estimated Delivery Date Method Current WG Current Estimate 07/20/24 LMP (Certain) 36w 6d Expected Delivery Route/Plan Labor Preferences- CB/BF classes: [] labor support person: [] labor intervention preferences: [] pain management options preferred: [] cut cord/dad catch: [] : [] PP control planned: [] discussed possible routes of delivery and associated risks: [] special requests: [] Specific Issue/Plans Covid status: [] Flu vaccine: [] Tdap vaccine: given Rhogam: na LARC form signed: [] movement and labor precautions reviewed. Problem list reviewed and updated with the most current plan of care details and appropriate orders placed. Relevant counseling for the gestational age provided. Continue routine care and follow up unless otherwise noted in visit notes/problem list details Initial Weight: 122 lb Date -???-???-???-???-??? -???-???-???-???-??? -???-???- EGA Weight BP Urine Prot -???-???-???-???-??? -???-???-???-???-??? -???-???- Glucose FHR FuHt Pres Dilation -???-???-???-???-??? -???-???-???-???-??? -???-???- Effaced St Visit Note 12/22/23 -???-???-???-???-??? -???-???-???-???-??? -???-???- 9w 6d 122 lb (+0 oz) 116/79 -???-???-???-???-??? -???-???-???-???-??? -???-???- 158 -???-???-???-???-??? -???-???-???-???-??? -???-???- LC-3.78cm on with LMP. 01/24/24 -???-???-???-???-??? -???-???-???-???-??? -?? (more content not included)... Normal [facility] Screening beta-hemolytic Str eptococcus cultureOrdered By: Lluvia Caro on 06-28-2024 Beta-hemolytic Streptococcus culture Group B Beta Streptococcus is not isolated. [facility] Group B Streptococcus Culture Group B Beta Streptococcus is not isolated. [facility] OB Limited With Biometricson 06-24-2024 OB Limited With Biometrics [facility] [address] [place] [address] [id number] OB Limited With Biometrics MR#: [id number] Acct: [id number] Name: KAUSHAL RODRIGUEZ Rep #: [id number] : 1995 F 29 From: Reinaldo Hernadez MD PCP: Dr. Paris Lee MD Status: [facility] Study: OB Limited With Biometrics Date of Exam: 06/24 Exam# [id number] Ordering Dr: Lluvia Shah DO PROCEDURE: OB LIMITED WITH BIOMETRICS (USOBGROWTH), 06/24/2024 REASON FOR EXAM: HISTORY OF SECOND STAGE ARREST. Reportedly, 36 weeks 2 days by previously established dates with ROLAND 07/20/2024. TECHNIQUE: Grayscale and color/spectral doppler transabdominal pelvic ultrasound was performed with attention to the uterus and associated gestation. COMPARISON: None FINDINGS: Gravid uterus with single fetus is identified. Cardiac activity: Regular, 140 bpm. position: Cephalic. Amniotic Fluid Index: 13.0 (normal 5-25), deepest vertical pocket 5.5 (normal 2-8). Placenta: Posterior. biometry: Biparietal diameter: 8.7 cm, corresponding to 35 weeks and 0 days. Head circumference: 31.0 cm, corresponding to 34 weeks and 5 days. Occipitofrontal diameter: 10.8 cm, corresponding to 34 weeks and 2 days. Abdominal circumference: 32.5 cm, corresponding to 36 weeks and 3 days. Femur length: 6.7 cm, corresponding to 34 weeks and 4 days. Composite gestational age: 34 weeks and 6 days Estimated Weight (EFW): 2,768 +/- 415 g, 39th percentile. Estimated delivery date (ROLAND): 07/30/2024 based on today's measurements. US/OB Limited With Biometrics IMPRESSION: 1. Single living intrauterine gestation at 34 weeks and 6 days based on today's measurements. Correlate with clinical factors including previously established dates. 2. Estimated weight 2,768 +/- 415 g, 39th percentile based on provided previously established dates. biometry as above. 3. Note that detailed anatomic survey was not performed. 4. Additional description as above. Reading Location: [id number] CC: Dr. Paris Lee MD; Dr. Lluvia Shah DO Groundskeeper Porter: Signed Normal [facility] - Chemistry and C hemistry - challengeOrdered By: Lluvia Caro on 06-14-2024 Glucose Ql (U) Negative [facility] - UrinalysisOrder ed By: Lluvia Caro on 06-14-2024 Protein Ql (U) Negative [facility] Medical Laboratory Specialist Office Visit Reporton 06-14-2024 Medical Laboratory Specialist Office Visit Report [facility]'[address], [address] [place] [address] OFFICE VISIT Date of Service: 06/14/24 MR#: [id number] Acct: [id number] Name: KAUSHAL RODRIGUEZ Rep #: [id number] : 1995 Provider: Dr. Lluvia Morgan DO Age/Sex: 29/F [place] [facility] [place] Status: Signed Intake Vital Signs 12/22/23 14:38 05/13/24 15:26 05/31/24 16:15 06/14/24 14:11 06/14/24 14:14 Height 5 ft 3 in 5 ft 3 in 5 ft 3 in 5 ft 3 in 5 ft 3 in Weight: 147 lb 6 oz BMI 26.1 BP 116/76 Intake Visit Reasons: 34 WK OB Appliance Adjuster Required: No Is patient in pain?: No Allergies sulfamethoxazole (From Bactrim) Allergy (Severe, Verified 06/14/24 14:10) Swelling trimethoprim (From Bactrim) Allergy (Verified 06/14/24 14:10) Rash gluten Adverse Reaction (Intermediate, Verified 06/14/24 14:10) Abd cramps/diarrhea Medications ???Medication ???Instructions ???Recorded ???Confirmed ???Type doxylamine succinate 25 mg tablet 12.5 mg PO QHS PRN 12/15/2306/14 History (Unisom (doxylamine)) multivit-min no.71-iron fum 28 cap PO 12/15/23 06/14/24 History mg-folate no.1 1 mg-dha 300 mg capsule (PNV-Ridott) pyridoxine (vitamin B6) 25 mg 12.5 mg PO QDAY 12/15/23 06/14/24 History tablet cephalexin 250 mg capsule 250 mg PO ONCE uti prevention #20 12/22/23 06/14/24 Rx caps Last Menstrual Period: 10/14/23 Zika: Zika virus screening: Negative : No PFSH PFSH Medical History Vaginal delivery Seasonal allergies Surgical History History of surgery Family History Mother Thyroid disorder hypothyroidism Aunt Thyroid disorder Maternal Hypothyroid Grandmother Thyroid disorder Maternal hypothyroid Social History adopted: No household members: spouse and children number of children: 1 current occupational status: employed current occupation: [employer] current occupational exposures/hazards: No pets and animals: Yes pets and animals: dog(s) history of recent travel: No sexually active: Yes Smoking Status: Never smoker alcohol intake: never substance use type: does not use diet: gluten free well-balanced diet: daily or most days caffeine: No eating out: rarely or never during the past year weight has: remained stable what type of physical activity do you participate in: walking frequency: 3-4 times per week duration: 15-30 minutes/day polly/mu-ism: Mu-Ism seatbelt use: always do you feel safe at home: Yes 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 Date Name GA/Weeks Outcome Route Bth Weight Infant Gen Labor Lgth Anesthesia Del Locatn Provider FOB 12/01/21 Jose Alfredoey 41 live - full term 7#1oz Female epidural [facility] pierce Coates Delivery Date: 12/01/21 Last Updated by: Elma Mai IOL post dates HPI 34 WK OB Details: KAUSHAL RODRIGUEZ is a 29 year old who presents for routine OB visit. OB Visit ROLAND Calculator Estimated Delivery Date Method Current Current Estimate 07/20/24 LMP (Certain) 34w 6d Expected Delivery Route/Plan Labor Preferences- CB/BF classes: [] labor support person: [] labor intervention preferences: [] pain management options preferred: [] cut cord/dad catch: [] : [] PP control planned: [] discussed possible routes of delivery and associated risks: [] special requests: [] Specific Issue/Plans Covid status: [] Flu vaccine: [] Tdap vaccine: given Rhogam: na LARC form signed: [] movement and labor precautions reviewed. Problem list reviewed and updated with the most current plan of care details and appropriate orders placed. Relevant counseling for the gestational age provided. Continue routine care and follow up unless otherwise noted in visit notes/problem list details Initial Weight: 122 lb Date -???-???-???-???-??? -???-???-???-???-??? -???-???- EGA Weight BP Urine Prot -???-???-???-???-??? -???-???-???-???-??? -???-???- Glucose FHR FuHt Pres Dilation -???-???-???-???-??? -???-???-???-???-??? -???-???- Effaced St Visit Note 12/22/23 -???-???-???-???-??? -???-???-???-???-??? -???-???- 9w 6d 122 lb (+0 oz) 116/79 -???-???-???-???-??? -???-???-???-???-??? -???-???- 158 -???-???-???-???-??? -???-???-???-???-??? -???-???- LC-3.78cm on with LMP. 01/24/24 -???-???-?? (more content not included)... Normal [facility] - Chemistry and C hemistry - challengeOrdered By: Kya Go on 05-31-2024 Glucose Ql (U) Negative [facility] - UrinalysisOrder ed By: Kya Go on 05-31-2024 Protein Ql (U) Negative [facility] Medical Laboratory Specialist Office Visit Reporton 05-31-2024 Medical Laboratory Specialist Office Visit Report [facility]'s [address], [address] [place] [address] OFFICE VISIT Date of Service: 05/31/24 MR#: [id number] Acct: [id number] Name: KAUSHAL RODRIGUEZ Rep #: [id number] : 1995 Provider: CHITO white Age/Sex: 29/F [place] [facility] [place] Status: Signed Intake Vital Signs 12/22/23 14:38 05/13/24 15:26 05/31/24 16:08 05/31/24 16:15 Height 5 ft 3 in 5 ft 3 in 5 ft 3 in 5 ft 3 in Weight: 142 lb 2 oz BMI 25.2 BP 98/65 Intake Visit Reasons: 32 WK OB Appliance Adjuster Required: No Is patient in pain?: No Allergies sulfamethoxazole (From Bactrim) Allergy (Severe, Verified 05/31/24 16:07) Swelling trimethoprim (From Bactrim) Allergy (Verified 05/31/24 16:07) Rash gluten Adverse Reaction (Intermediate, Verified 05/31/24 16:07) Abd cramps/diarrhea Medications ???Medication ???Instructions ???Recorded ???Confirmed ???Type doxylamine succinate 25 mg tablet 12.5 mg PO QHS PRN 12/15/2305/31 History (Unisom (doxylamine)) multivit-min no.71-iron fum 28 cap PO 12/15/23 05/31/24 History mg-folate no.1 1 mg-dha 300 mg capsule (PNV-Ridott) pyridoxine (vitamin B6) 25 mg 12.5 mg PO QDAY 12/15/23 05/31/24 History tablet cephalexin 250 mg capsule 250 mg PO ONCE uti prevention #20 12/22/23 05/31/24 Rx caps Last Menstrual Period: 10/14/23 : No PFSH PFSH Medical History Vaginal delivery Seasonal allergies Surgical History History of surgery Family History Mother Thyroid disorder hypothyroidism Aunt Thyroid disorder Maternal Hypothyroid Grandmother Thyroid disorder Maternal hypothyroid Social History adopted: No household members: spouse and children number of children: 1 current occupational status: employed current occupation: [employer] current occupational exposures/hazards: No pets and animals: Yes pets and animals: dog(s) history of recent travel: No sexually active: Yes Smoking Status: Never smoker alcohol intake: never substance use type: does not use diet: gluten free well-balanced diet: daily or most days caffeine: No eating out: rarely or never during the past year weight has: remained stable what type of physical activity do you participate in: walking frequency: 3-4 times per week duration: 15-30 minutes/day polly/mu-ism: Mu-Ism seatbelt use: always do you feel safe at home: Yes 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 Date Name GA/Weeks Outcome Route Bth Weight Gen Labor Lgth Anesthesia Del Locatn Provider FOB 12/01/21 Rishabh 41 live - full term 7#1oz Female epidural [facility] pierce Coates Delivery Date: 12/01/21 Last Updated by: Elma Mai IOL post dates HPI 32 WK OB Details: KAUSHAL RODRIGUEZ is a 29 year old who presents for routine OB visit. OB Visit ROLAND Calculator Estimated Delivery Date Method Current Current Estimate 07/20/24 LMP (Certain) 32w 6d Expected Delivery Route/Plan Labor Preferences- CB/BF classes: [] labor support person: [] labor intervention preferences: [] pain management options preferred: [] cut cord/dad catch: [] : [] PP control planned: [] discussed possible routes of delivery and associated risks: [] special requests: [] Specific Issue/Plans Covid status: [] Flu vaccine: [] Tdap vaccine: given Rhogam: na LARC form signed: [] movement and labor precautions reviewed. Problem list reviewed and updated with the most current plan of care details and appropriate orders placed. Relevant counseling for the gestational age provided. Continue routine care and follow up unless otherwise noted in visit notes/problem list details Initial Weight: 122 lb Date -???-???-???-???-??? -???-???-???-???-??? -???-???- EGA Weight BP Urine Prot -???-???-???-???-??? -???-???-???-???-??? -???-???- Glucose FHR FuHt Pres Dilation -???-???-???-???-??? -???-???-???-???-??? -???-???- Effaced St Visit Note 12/22/23 -???-???-???-???-??? -???-???-???-???-??? -???-???- 9w 6d 122 lb (+0 oz) 116/79 -???-???-???-???-??? -???-???-???-???-??? -???-???- 158 -???-???-???-???-??? -???-???-???-???-??? -???-???- LC-3.78cm on with LMP. 01/24/24 -???-???-???-???-??? -???-???-???-???-??? -???-???- 14w 4d 127 lb 6 oz (+5 lb 6 oz) 108/72 Negative (more content not included)... Normal [facility] - Chemistry and C hemistry - challengeOrdered By: Lluvia Caro on 05-13-2024 Glucose Ql (U) Negative [facility] - UrinalysisOrder ed By: Lluvia Caro on 05-13-2024 Protein Ql (U) Negative [facility] Laboratory Specialist Office Visit Reporton 05-13-2024 Medical Laboratory Specialist Office Visit Report [facility]'s [address], [address] [place] [address] OFFICE VISIT Date of Service: 05/13/24 MR#: [id number] Acct: [id number] Name: KAUSHAL RODRIGUEZ Rep #: [id number] : 1995 Provider: Dr. Lluvia Morgan DO Age/Sex: 29/F [place] [facility] [place]: Signed Intake Vital Signs 12/22/23 14:38 04/26/24 15:32 05/13/24 15:24 05/13/24 15:26 Height 5 ft 3 in 5 ft 3 in 5 ft 3 in 5 ft 3 in Weight: 148 lb 4 oz BMI 26.2 BP 111/71 Intake Visit Reasons: 30 WK OB Appliance Adjuster Required: No Is patient in pain?: No Allergies sulfamethoxazole (From Bactrim) Allergy (Severe, Verified 05/13/24 15:23) Swelling trimethoprim (From Bactrim) Allergy (Verified 05/13/24 15:23) Rash gluten Adverse Reaction (Intermediate, Verified 05/13/24 15:23) Abd cramps/diarrhea Medications ???Medication ???Instructions ???Recorded ???Confirmed ???Type doxylamine succinate 25 mg tablet 12.5 mg PO QHS PRN 12/15/2305/13 History (Unisom (doxylamine)) multivit-min no.71-iron fum 28 cap PO 12/15/23 05/13/24 History mg-folate no.1 1 mg-dha 300 mg capsule (PNV-Ridott) pyridoxine (vitamin B6) 25 mg 12.5 mg PO QDAY 12/15/23 05/13/24 History tablet cephalexin 250 mg capsule 250 mg PO ONCE uti prevention #20 12/22/23 05/13/24 Rx caps Last Menstrual Period: 10/14/23 Zika: Zika virus screening: Negative : No PFSH PFSH Medical History Vaginal delivery Seasonal allergies Surgical History History of surgery Family History Mother Thyroid disorder hypothyroidism Aunt Thyroid disorder Maternal Hypothyroid Grandmother Thyroid disorder Maternal hypothyroid Social History adopted: No household members: spouse and children number of children: 1 current occupational status: employed current occupation: [employer] current occupational exposures/hazards: No pets and animals: Yes pets and animals: dog(s) history of recent travel: No sexually active: Yes Smoking Status: Never smoker alcohol intake: never substance use type: does not use diet: gluten free well-balanced diet: daily or most days caffeine: No eating out: rarely or never during the past year weight has: remained stable what type of physical activity do you participate in: walking frequency: 3-4 times per week duration: 15-30 minutes/day polly/mu-ism: Mu-Ism seatbelt use: always do you feel safe at home: Yes 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 Date Name GA/Weeks Outcome Route Bth Weight Gen Labor Lgth Anesthesia Del Locatn Provider FOB 12/01/21 Jose Alfredoey 41 live - full term 7#1oz Female epidural [facility] pierce Coates Delivery Date: 12/01/21 Last Updated by: Elma Mai IOL post dates HPI 30 WK OB Details: KAUSHAL RODRIGUEZ is a 29 year old who presents for routine OB visit. OB Visit ROLAND Calculator Estimated Delivery Date Method Current Current Estimate 07/20/24 LMP (Certain) 30w 2d Expected Delivery Route/Plan Labor Preferences- CB/BF classes: [] labor support person: [] labor intervention preferences: [] pain management options preferred: [] cut cord/dad catch: [] : [] PP control planned: [] discussed possible routes of delivery and associated risks: [] special requests: [] Specific Issue/Plans Covid status: [] Flu vaccine: [] Tdap vaccine: given Rhogam: na LARC form signed: [] movement and labor precautions reviewed. Problem list reviewed and updated with the most current plan of care details and appropriate orders placed. Relevant counseling for the gestational age provided. Continue routine care and follow up unless otherwise noted in visit notes/problem list details Initial Weight: 122 lb Date -???-???-???-???-??? -???-???-???-???-??? -???-???- EGA Weight BP Urine Prot -???-???-???-???-??? -???-???-???-???-??? -???-???- Glucose FHR FuHt Pres Dilation -???-???-???-???-??? -???-???-???-???-??? -???-???- Effaced St Visit Note 12/22/23 -???-???-???-???-??? -???-???-???-???-??? -???-???- 9w 6d 122 lb (+0 oz) 116/79 -???-???-???-???-??? -???-???-???-???-??? -???-???- 158 -???-???-???-???-??? -???-???-???-???-??? -???-???- LC-3.78cm on with LMP. 01/24/24 -???-???-???-???-??? -???-???-???-???-? (more content not included)... Normal [facility] Serum or plasma thyroid stim ulating hormone (TSH) measurement (units/volume)Ordered By: Lluvia Caro on 05-13-2024 TSH Qn 2.370 uIU/mL 0.358-3.740 [facility] TSH QnOrdered By: Lluvia beltran on 05-13-2024 Thyroid Stimulating Hormone (TSH) 2.370 uIU/mL 0.358-3.740 [facility] Thyroid Stim Hormone (TSH)on 05-13-2024 TSH 2.370 uIU/mL Normal 0.358-3.740 [facility] Comment on above: Performed By: #### L 501.9520 #### [facility] [address] [place], [address] Absolute neutrophil countOrd ered By: Rosalind Oconnor on 04-26-2024 Neutrophils (Bld) [#/Vol] 5.1 10*3/uL 2.0-7.7 [facility] Basophil percentageOrdered B y: Rosalind Floydmoise on 04-26-2024 Basophils/100 WBC (Bld) 0.7 % 0-1 [facility] CBC W/Diff, Automatedon Absolute Lymph 1.28 X10 3/uL Normal 0.83-4.51 [facility] Comment on above: Performed By: #### L 501.0250, L100.0100, L509.8000, L3890.6005 ####[facility] [address] [place], [address] Absolute Neut 5.1 X10 3/uL Normal 2.0-7.7 [facility] Comment on above: Performed By: #### L 501.0250, L100.0100, L509.8000, L3890.6005 ####[facility] [address] [place], [address] Basophils/100 WBC (Bld) 0.7 % Normal 0-1 [facility] Comment on above: Performed By: #### L 501.0250, L100.0100, L509.8000, L3890.6005 ####[facility] [address] [place], [address] Eosinophils/100 WBC (Bld) 2.4 % Normal 0-5 [facility] Comment on above: Performed By: #### L 501.0250, L100.0100, L509.8000, L3890.6005 ####[facility] [address] [place], [address] Erythrocyte distribution width (RBC) [Ratio] 13.3 % Normal 11.6-14.6 [facility] Comment on above: Performed By: #### L 501.0250, L100.0100, L509.8000, L3890.6005 ####[facility] [address] [place], [address] Hematocrit (Bld) [Volume fraction] 35.4 % Low 37-47 [facility] Comment on above: Performed By: #### L 501.0250, L100.0100, L509.8000, L3890.6005 ####[facility] [address] [place], [address] Hemoglobin (Bld) [Mass/Vol] 11.9 g/dL Low 12.0-15.0 [facility] Comment on above: Performed By: #### L 501.0250, L100.0100, L509.8000, L3890.6005 ####[facility] [address] [place], [address] IG% 0.700 Normal 0.0-0.9 [facility] Comment on above: Result Comment: IG% - Immature Granulocytes (promyelocytes, myelocytes and metamyelocytes) > 1% indicates that a LEFT SHIFT is Present. Performed By: #### L 501.0250, L100.0100, L509.8000, L3890.6005 ####[facility] [address] [place], [address] Lymphocytes/100 WBC (Bld) 18.2 % Low 19-41 [facility] Comment on above: Performed By: #### L 501.0250, L100.0100, L509.8000, L3890.6005 ####[facility] [address] [place], [address] MCH (RBC) [Entitic mass] 29.2 pg Normal 27.0-32.0 [facility] Comment on above: Performed By: #### L 501.0250, L100.0100, L509.8000, L3890.6005 ####[facility] [address] [place], [address] MCHC (RBC) [Mass/Vol] 33.6 g/dL Normal 32-36 [facility] Comment on above: Performed By: #### L 501.0250, L100.0100, L509.8000, L3890.6005 ####[facility] [address] [place], [address] MCV (RBC) [Entitic vol] 86.8 fL Normal 81-99 [facility] Comment on above: Performed By: #### L 501.0250, L100.0100, L509.8000, L3890.6005 ####[facility] [address] [place], [address] Monocytes/100 WBC (Bld) 6.1 % Normal 0-10 [facility] Comment on above: Performed By: #### L 501.0250, L100.0100, L509.8000, L3890.6005 ####[facility] [address] [place], [address] Neutrophils/100 WBC (Bld) 71.9 % High 47-70 [facility] Comment on above: Performed By: #### L 501.0250, L100.0100, L509.8000, L3890.6005 ####[facility] [address] [place], [address] Nucleated RBC (Bld) [#/Vol] 0 10*3/uL Normal 0-5 [facility] Comment on above: Performed By: #### L 501.0250, L100.0100, L509.8000, L3890.6005 ####[facility] [address] [place], [address] Platelet mean volume (Bld) [Entitic vol] 10.0 fL Normal 6.2-12.0 [facility] Comment on above: Performed By: #### L 501.0250, L100.0100, L509.8000, L3890.6005 ####[facility] [address] [place], [address] Platelets (Bld) [#/Vol] 242 10*3/uL Normal 150-450 [facility] Comment on above: Performed By: #### L 501.0250, L100.0100, L509.8000, L3890.6005 ####[facility] [address] [place], [address] RBC (Bld) [#/Vol] 4.08 10*6/uL Low 4.2-5.4 [facility] Comment on above: Performed By: #### L 501.0250, L100.0100, L509.8000, L3890.6005 ####[facility] [address] [place], [address] RDW SD 42.0 fl Normal 35.1-43.9 [facility] Comment on above: Performed By: #### L 501.0250, L100.0100, L509.8000, L3890.6005 ####[facility] [address] [place], [address] WBC (Bld) [#/Vol] 7.0 10*3/uL Normal 4.4-11.0 [facility] Comment on above: Performed By: #### L 501.0250, L100.0100, L509.8000, L3890.6005 ####[facility] [address] [place], [address] Eosinophil percentageOrdered By: Rosalind Oocnnor on 04-26-2024 Eosinophils/100 WBC (Bld) 2.4 % 0-5 [facility] Erythrocyte distribution wid th ratioOrdered By: Rosalind Oconnor on 04-26-2024 Erythrocyte distribution width (RBC) [Ratio] 13.3 % 11.6-14.6 [facility] Erythrocyte distribution wid th standard deviationOrdered By: Rosalind Oconnor on 04-26-2024 Erythrocyte distribution width (RBC) [Entitic vol] 42.0 fL 35.1-43.9 [facility] Glucose 1 Hr post 50 g gluco se PO [Mass/Vol]Ordered By: Rosalind Oconnor on 04-26-2024 Glucose [Mass/Vol] 71 mg/dL 70-140 [facility] Glucose Challenge Gest 1H 50 blanca 04-26-2024 GLU GEST 50g 1H 71 mg/dL Normal 70-140 [facility] Comment on above: Performed By: #### L 501.0250, L100.0100, L509.8000, L3890.6005 ####[facility] [address] [place], [place], [id number] HIV - WCHon 04-26-2024 HIV Non-Reactive Normal Nonreactive [facility] Comment on above: Performed By: #### L 501.0250, L100.0100, L509.8000, L3890.6005 ####[facility] [address] [place], [place], [id number] HIV 1+2 Ab+HIV1 p24 Ag IA Ql Ordered By: Rosalind Oconnor on 04-26-2024 HIV (1&2) Antibody Non-Reactive Nonreactive [facility] Hematocrit Auto (Bld) [Volum e fraction]Ordered By: Rosalind Oconnor on 04-26-2024 Hematocrit (Bld) [Volume fraction] 35.4 % Low 37-47 [facility] Hemoglobin measurementOrdere d By: Rosalind Oconnor on 04-26-2024 Hemoglobin (Bld) [Mass/Vol] 11.9 g/dL Low 12.0-15.0 [facility] Immature granulocytes/100 WB C Auto (Bld)Ordered By: Rosalind Oconnor on 04-26-2024 Immature granulocytes/100 WBC (Bld) 0.700 % 0.0-0.9 [facility] Comment on above: IG% - Immature Granu locytes (promyelocytes, myelocytes and metamyelocytes) > 1% indicates that a LEFT SHIFT is Present. L509.8000on 04-26-2024 Syphilis Abs Non-Reactive Normal [facility] Comment on above: Performed By: #### L 501.0250, L100.0100, L509.8000, L3890.6005 ####[facility] [address] [place], [address] Laboratory - Chemistry and C hemistry - challengeOrdered By: Rosalind Oconnor on 04-26-2024 Glucose Ql (U) Negative [facility] Laboratory - UrinalysisOrder ed By: Rosalind Oconnor on 04-26-2024 Protein Ql (U) Negative [facility] Lymphocytes Auto (Unsp spec) [#/Vol]Ordered By: Rosalind Oconnor on 04-26-2024 Lymphocytes (Bld) [#/Vol] 1.28 10*3/uL 0.83-4.51 [facility] Lymphocytes/100 WBC Auto (Un sp spec)Ordered By: Rosalind Oconnor on 04-26-2024 Lymphocytes/100 WBC (Bld) 18.2 % Low 19-41 [facility] MCV (mean corpuscular volume ) determinationOrdered By: Rosalind Oconnor on 04-26-2024 MCV (RBC) [Entitic vol] 86.8 fL 81-99 [facility] Mean corpuscular hemoglobin (MCH) determinationOrdered By: Rosalind Oconnor on 04-26-2024 MCH (RBC) [Entitic mass] 29.2 pg 27.0-32.0 [facility] Mean corpuscular hemoglobin concentration (MCHC) determinationOrdered By: Rosalind Oconnor on 04-26-2024 MCHC (RBC) [Mass/Vol] 33.6 g/dL 32-36 [facility] Mean platelet volume determi nationOrdered By: Rosalind Oconnor on 04-26-2024 Platelet mean volume (Bld) [Entitic vol] 10.0 fL 6.2-12.0 [facility] Monocyte percentageOrdered B y: Rosalind Oconnor on 04-26-2024 Monocytes/100 WBC (Bld) 6.1 % 0-10 [facility] Neutrophil percentageOrdered By: Rosalindkathleen Oconnor on 04-26-2024 Neutrophils/100 WBC (Bld) 71.9 % High 47-70 [facility] Nucleated red blood cell per centageOrdered By: Rosalind Oconnor on 04-26-2024 Nucleated RBC/100 WBC (Bld) [Ratio] 0 % 0-5 [facility] Medical Laboratory Specialist Office Visit Reporton 04-26-2024 Medical Laboratory Specialist Office Visit Report [address], [address] [place] [address] OFFICE VISIT Date of Service: 04/26/24 MR#: [id number] Acct: [id number] Name: KAUSHAL RODRIGUEZ Rep #: [id number] : 1995 Provider: Dr. Rosalind niño MD Age/Sex: 29/F [place] [facility] [place]: Signed with Addenda ADDENDUM by Izzy Camarena on 04/26/24 at 1610 Office Procedure Documentation entered by Izzy Camarena 04/26/24 16:10: Immunizations Boostrix Tdap 2.5 Lf unit-8 mcg-5 Lf/0.5 mL intramuscular syringe Performing Provider: Rosalind Oconnor MD Performing Location: [facility] Administered by: Izzy Camarena on 04/26/24 16:06 Dose Route Admin Location Dispensed Lot Number Expiration Date NDC Man ufacturer 0.5 mL IM Left Deltoid 0.5 mL [id number] 03/19/26 [id number] [employer]P [employer] VIS Given Date VIS Provided VIS Publication Date 04/26/24 Single Vaccine 20 Eligibility Eligibility Date Funding Source Not Applicable Date cc: * Signed Intake Vital Signs 12/22/23 14:38 01/10/25 15:17 04/26/24 15:32 Height 5 ft 3 in 5 ft 3 in 5 ft 3 in Weight: 145 lb 2 oz BMI 25.7 BP 115/67 Intake Visit Reasons: 28 WK OB/GLUCOSE Appliance Adjuster Required: No Is patient in pain?: No Feel stressed/tense/nervo us/anxious/difficult y sleeping: not at all Allergies sulfamethoxazole (From Bactrim) Allergy (Severe, Verified 04/26/24 15:29) Swelling trimethoprim (From Bactrim) Allergy (Verified 04/26/24 15:29) Rash gluten Adverse Reaction (Intermediate, Verified 04/26/24 15:29) Abd cramps/diarrhea Medications ???Medication ???Instructions ???Recorded ???Confirmed ???Type doxylamine succinate 25 mg tablet 12.5 mg PO QHS PRN 12/15/2304/26 History (Unisom (doxylamine)) multivit-min no.71-iron fum 28 cap PO 12/15/23 04/26/24 History mg-folate no.1 1 mg-dha 300 mg capsule (PNV-Ridott) pyridoxine (vitamin B6) 25 mg 12.5 mg PO QDAY 12/15/23 04/26/24 History tablet cephalexin 250 mg capsule 250 mg PO ONCE uti prevention #20 12/22/23 04/26/24 Rx caps Last Menstrual Period: 10/14/23 Zika: Zika virus screening: Negative : No Have you fallen in the past year?: No PFSH PFSH Medical History Vaginal delivery Seasonal allergies Surgical History History of surgery Family History Mother Thyroid disorder hypothyroidism Aunt Thyroid disorder Maternal Hypothyroid Grandmother Thyroid disorder Maternal hypothyroid Social History adopted: No household members: spouse and children number of children: 1 current occupational status: employed current occupation: [employer] current occupational exposures/hazards: No pets and animals: Yes pets and animals: dog(s) history of recent travel: No sexually active: Yes Smoking Status: Never smoker alcohol intake: never substance use type: does not use diet: gluten free well-balanced diet: daily or most days caffeine: No eating out: rarely or never during the past year weight has: remained stable what type of physical activity do you participate in: walking frequency: 3-4 times per week duration: 15-30 minutes/day polly/mu-ism: Mu-Ism seatbelt use: always do you feel safe at home: Yes 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 Date Name GA/Weeks Outcome Route Bth Weight Infant Gen Labor Lgth Anesthesia Del Locatn Provider FOB 12/01/21 Rishabh 41 live - full term 7#1oz Female epidural [facility] pierce Coates Delivery Date: 12/01/21 Last Updated by: Elma Mai IOL post dates HPI 28 WK OB/GLUCOSE Details: KAUSHAL RODRIGUEZ is a 29 year old who presents for routine OB visit. OB Visit ROLAND Calculator Estimated Delivery Date Method Current WG Current Estimate 07/20/24 LMP (Certain) 27w 6d Expected Delivery Route/Plan Labor Preferences- CB/BF classes: [] labor support person: [] labor intervention preferences: [] pain management options preferred: [] cut cord/dad catch: [] : [] PP control planned: [] discussed possible routes of delivery and associated risks: [] special requests: [] Specific Issue/Plans Covid status: [] Flu vaccine: [] Tdap vaccine: given Rhogam: na LARC form signed: [] movement (more content not included)... Normal [facility] Platelet countOrdered By: Eduar Oconnor on 04-26-2024 Platelets (Bld) [#/Vol] 242 10*3/uL 150-450 [facility] RBC Auto (Bld) [#/Vol]Ordere d By: Rosalind Oconnor on 04-26-2024 RBC (Bld) [#/Vol] 4.08 10*6/uL Low 4.2-5.4 [facility] Treponema sp Ab Ql (S)Ordere d By: Rosalind Floydmoise on 04-26-2024 Syphilis Total Antibody Non-Reactive [facility] White blood cell (WBC) count Ordered By: Rosalind Oconnor on 04-26-2024 WBC (Bld) [#/Vol] 7.0 10*3/uL 4.4-11.0 [facility] Medical Laboratory Specialist Office Visit Reporton 2024 Medical Laboratory Specialist Office Visit Report [facility] [address], [address] [place] [address] OFFICE VISIT Date of Service: 03/29/24 MR#: [id number] Acct: [id number] Name: KAUSHAL RODRIGUEZ Rep #: [id number] : 1995 Provider: CHITO Bender ams Age/Sex: 29/F [place] [facility] [place] Status: Signed Intake Vital Signs 12/22/23 14:38 02/27/24 13:56 03/29/24 15:08 03/29/24 15:17 Height 5 ft 3 in 5 ft 3 in 5 ft 3 in 5 ft 3 in Weight: 139 lb BMI 24.6 BP 100/64 Intake Visit Reasons: 21 WK OB Appliance Adjuster Required: No Is patient in pain?: No Allergies sulfamethoxazole (From Bactrim) Allergy (Severe, Verified 03/29/24 15:07) Swelling trimethoprim (From Bactrim) Allergy (Verified 03/29/24 15:07) Rash gluten Adverse Reaction (Intermediate, Verified 03/29/24 15:07) Abd cramps/diarrhea Medications ???Medication ???Instructions ???Recorded ???Confirmed ???Type doxylamine succinate 25 mg tablet 12.5 mg PO QHS PRN 12/15/23 03/29/24 History (Unisom (doxylamine)) multivit-min no.71-iron fum 28 cap PO 12/15/23 03/29/24 History mg-folate no.1 1 mg-dha 300 mg capsule (PNV-Ridott) pyridoxine (vitamin B6) 25 mg 12.5 mg PO QDAY 12/15/23 03/29/24 History tablet cephalexin 250 mg capsule 250 mg PO ONCE uti prevention #20 12/22/23 03/29/24 Rx caps Last Menstrual Period: 10/14/23 Zika: Zika virus screening: Negative : No Have you fallen in the past year?: No PFSH PFSH Medical History Vaginal delivery Seasonal allergies Surgical History History of surgery Family History Mother Thyroid disorder hypothyroidism Aunt Thyroid disorder Maternal Hypothyroid Grandmother Thyroid disorder Maternal hypothyroid Social History adopted: No household members: spouse and children number of children: 1 current occupational status: employed current occupation: [employer] current occupational exposures/hazards: No pets and animals: Yes pets and animals: dog(s) history of recent travel: No sexually active: Yes Smoking Status: Never smoker alcohol intake: never substance use type: does not use diet: gluten free well-balanced diet: daily or most days caffeine: No eating out: rarely or never during the past year weight has: remained stable what type of physical activity do you participate in: walking frequency: 3-4 times per week duration: 15-30 minutes/day polly/mu-ism: Mu-Ism seatbelt use: always do you feel safe at home: Yes 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 Date Name GA/Weeks Outcome Route Bth Weight Gen Labor Lgth Anesthesia Del Locatn Provider FOB 12/01/21 Rishabh 41 live - full term 7#1oz Female epidural [facility] pierce Coates Delivery Date: 12/01/21 Last Updated by: Elma Mai IOL post dates HPI 21 WK OB Details: KAUSHAL RODRIGUEZ is a 29 year old who presents for routine OB visit. OB Visit ROLAND Calculator Estimated Delivery Date Method Current WG Current Estimate 07/20/24 LMP (Certain) 23w 6d Expected Delivery Route/Plan Labor Preferences- CB/BF classes: [] labor support person: [] labor intervention preferences: [] pain management options preferred: [] cut cord/dad catch: [] : [] PP control planned: [] discussed possible routes of delivery and associated risks: [] special requests: [] Specific Issue/Plans Covid status: [] Flu vaccine: [] Tdap vaccine: [] Rhogam: [] LARC form signed: [] Problem list reviewed and updated with the most current plan of care details and appropriate orders placed. Relevant counseling for the gestational age provided. Continue routine care and follow up unless otherwise noted in visit notes/problem list details Initial Weight: 122 lb Date -???-???-???-???-??? -???-???-???-???-??? -???-???- EGA Weight BP Urine Prot -???-???-???-???-??? -???-???-???-???-??? -???-???- Glucose FHR FuHt Pres Dilation -???-???-???-???-??? -???-???-???-???-??? -???-???- Effaced St Visit Note 12/22/23 -???-???-???-???-??? -???-???-???-???-??? -???-???- 9w 6d 122 lb (+0 oz) 116/79 -???-???-???-???-??? -???-???-???-???-??? -???-???- 158 -???-???-???-???-??? -???-???-???-???-??? -???-???- LC-3.78cm on with LMP. 01/24/24 -???-???-???-???-??? -???-???-???-???-??? -???-???- 14w 4d 127 lb 6 oz (+5 lb 6 oz) 10 (more content not included)... Normal [facility] Laboratory - Chemistry and C hemistry - challengeon 02-27-2024 Glucose Ql (U) Negative [facility] Laboratory - Urinalysison Protein Ql (U) Negative [facility] Medical Laboratory Specialist Office Visit Reporton 02-27-2024 Medical Laboratory Specialist Office Visit Report [facility] [address], [address] [place] [address] OFFICE VISIT Date of Service: 02/27/24 MR#: [id number] Acct: [id number] Name: KAUSHAL RODRIGUEZ Rep #: [id number] : 1995 Provider: MIRTA garcia Age/Sex: 28/F [place] [facility] [place] Status: Signed Intake Vital Signs 12/22/23 14:38 01/24/24 14:51 02/27/24 13:56 Height 5 ft 3 in 5 ft 3 in 5 ft 3 in Weight: 132 lb 4 oz BMI 23.4 BP 104/62 Intake Visit Reasons: 17 WK OB Chief Complaint: 17 Week OB Appliance Adjuster Required: No Is patient in pain?: No Allergies sulfamethoxazole (From Bactrim) Allergy (Severe, Verified 02/27/24 13:53) Swelling trimethoprim (From Bactrim) Allergy (Verified 02/27/24 13:53) Rash gluten Adverse Reaction (Intermediate, Verified 02/27/24 13:53) Abd cramps/diarrhea Medications ???Medication ???Instructions ???Recorded ???Confirmed ???Type doxylamine succinate 25 mg tablet 12.5 mg PO QHS PRN 12/15/23 02/27/24 History (Unisom (doxylamine)) multivit-min no.71-iron fum 28 cap PO 12/15/23 02/27/24 History mg-folate no.1 1 mg-dha 300 mg capsule (PNV-Ridott) pyridoxine (vitamin B6) 25 mg 12.5 mg PO QDAY 12/15/23 02/27/24 History tablet cephalexin 250 mg capsule 250 mg PO ONCE uti prevention #20 12/22/23 02/27/24 Rx caps Last Menstrual Period: 10/14/23 Zika: Zika virus screening: Negative : No PFSH PFSH Medical History Vaginal delivery Seasonal allergies Surgical History History of surgery Family History Mother Thyroid disorder hypothyroidism Aunt Thyroid disorder Maternal Hypothyroid Grandmother Thyroid disorder Maternal hypothyroid Social History adopted: No household members: spouse and children number of children: 1 current occupational status: employed current occupation: [employer] current occupational exposures/hazards: No pets and animals: Yes pets and animals: dog(s) history of recent travel: No sexually active: Yes Smoking Status: Never smoker alcohol intake: never substance use type: does not use diet: gluten free well-balanced diet: daily or most days caffeine: No eating out: rarely or never during the past year weight has: remained stable what type of physical activity do you participate in: walking frequency: 3-4 times per week duration: 15-30 minutes/day polly/mu-ism: Mu-Ism seatbelt use: always do you feel safe at home: Yes 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 Date Name GA/Weeks Outcome Route Bth Weight Infant Gen Labor Lgth Anesthesia Del Locatn Provider FOB 12/01/21 Rishabh 41 live - full term 7#1oz Female epidural [facility] pierce Floyd Coates Delivery Date: 12/01/21 Last Updated by: Elma Mai IOL post dates HPI 17 WK OB Details: KAUSHAL RODRIGUEZ is a 28 year old who presents for routine OB visit. OB Visit ROLAND Calculator Estimated Delivery Date Method Current WG Current Estimate 07/20/24 LMP (Certain) 19w 3d Expected Delivery Route/Plan Labor Preferences- CB/BF classes: [] labor support person: [] labor intervention preferences: [] pain management options preferred: [] cut cord/dad catch: [] : [] PP control planned: [] discussed possible routes of delivery and associated risks: [] special requests: [] Specific Issue/Plans Covid status: [] Flu vaccine: [] Tdap vaccine: [] Rhogam: [] LARC form signed: [] Problem list reviewed and updated with the most current plan of care details and appropriate orders placed. Relevant counseling for the gestational age provided. Continue routine care and follow up unless otherwise noted in visit notes/problem list details Initial Weight: 122 lb Date -???-???-???-???-??? -???-???-???-???-??? -???-???- EGA Weight BP Urine Prot -???-???-???-???-??? -???-???-???-???-??? -???-???- Glucose FHR FuHt Pres Dilation -???-???-???-???-??? -???-???-???-???-??? -???-???- Effaced St Visit Note 12/22/23 -???-???-???-???-??? -???-???-???-???-??? -???-???- 9w 6d 122 lb (+0 oz) 116/79 -???-???-???-???-??? -???-???-???-???-??? -???-???- 158 -???-???-???-???-??? -???-???-???-???-??? -???-???- LC-3.78cm on with LMP. 01/24/24 -???-???-???-???-??? -???-???-???-???-??? -???-???- 14w 4d 127 lb 6 oz (+5 lb 6 oz) 108/72 Negati (more content not included)... Normal [facility] Laboratory - Chemistry and C hemistry - challengeon 01-24-2024 Glucose Ql (U) Negative [facility] - Urinalysison Protein Ql (U) Negative [facility] Medical Laboratory Specialist Office Visit Reporton 01-24-2024 Medical Laboratory Specialist Office Visit Report [facility] [address], [address] [place] [address] OFFICE VISIT Date of Service: 01/24/24 MR#: [id number] Acct: [id number] Name: KAUSHAL RODRIGUEZ Rep #: [id number] : 1995 Provider: Dr. Lluvia Morgan DO Age/Sex: 28/F [place] [facility] [place]: Signed Intake Vital Signs 12/06/21 07:15 12/22/23 14:38 01/24/24 14:50 01/24/24 14:51 Height 5 ft 3 in 5 ft 3 in 5 ft 3 in 5 ft 3 in Weight: 127 lb 6 oz BMI 22.5 BP 108/72 Intake Visit Reasons: 13wk OB Appliance Adjuster Required: No Is patient in pain?: No Allergies sulfamethoxazole (From Bactrim) Allergy (Severe, Verified 01/24/24 14:50) Swelling trimethoprim (From Bactrim) Allergy (Verified 01/24/24 14:50) Rash gluten Adverse Reaction (Intermediate, Verified 01/24/24 14:50) Abd cramps/diarrhea Medications ???Medication ???Instructions ???Recorded ???Confirmed ???Type doxylamine succinate 25 mg tablet 12.5 mg PO QHS PRN 12/15/23 01/24/24 History (Unisom (doxylamine)) multivit-min no.71-iron fum 28 cap PO 12/15/23 01/24/24 History mg-folate no.1 1 mg-dha 300 mg capsule (PNV-Ridott) pyridoxine (vitamin B6) 25 mg 12.5 mg PO QDAY 12/15/23 01/24/24 History tablet cephalexin 250 mg capsule 250 mg PO ONCE uti prevention #20 12/22/23 01/24/24 Rx caps Last Menstrual Period: 10/14/23 Zika: Zika virus screening: Negative : No PFSH PFSH Medical History Vaginal delivery Seasonal allergies Surgical History History of surgery Family History Mother Thyroid disorder hypothyroidism Aunt Thyroid disorder Maternal Hypothyroid Grandmother Thyroid disorder Maternal hypothyroid Social History adopted: No household members: spouse and children number of children: 1 current occupational status: employed current occupation: [employer] current occupational exposures/hazards: No pets and animals: Yes pets and animals: dog(s) history of recent travel: No sexually active: Yes Smoking Status: Never smoker alcohol intake: never substance use type: does not use diet: gluten free well-balanced diet: daily or most days caffeine: No eating out: rarely or never during the past year weight has: remained stable what type of physical activity do you participate in: walking frequency: 3-4 times per week duration: 15-30 minutes/day polly/mu-ism: Mu-Ism seatbelt use: always do you feel safe at home: Yes 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 Date Name GA/Weeks Outcome Route Bth Weight Gen Labor Lgth Anesthesia Del [facility] Provider FOB 12/01/21 Jose Alfredosoledad 41 live - full term 7#1oz Female epidural [facility] pierce Coates Delivery Date: 12/01/21 Last Updated by: Elma Mai IOL post dates HPI 13wk OB Details: KAUSHAL RODRIGUEZ is a 28 year old who presents for routine OB visit. OB Visit ROLAND Calculator Estimated Delivery Date Method Current WG Current Estimate 07/20/24 LMP (Certain) 14w 4d Expected Delivery Route/Plan Labor Preferences- CB/BF classes: [] labor support person: [] labor intervention preferences: [] pain management options preferred: [] cut cord/dad catch: [] : [] PP control planned: [] discussed possible routes of delivery and associated risks: [] special requests: [] Specific Issue/Plans Covid status: [] Flu vaccine: [] Tdap vaccine: [] Rhogam: [] LARC form signed: [] Problem list reviewed and updated with the most current plan of care details and appropriate orders placed. Relevant counseling for the gestational age provided. Continue routine care and follow up unless otherwise noted in visit notes/problem list details Initial Weight: 122 lb Date -???-???-???-???-??? -???-???-???-???-??? -???-???- EGA Weight BP Urine Prot -???-???-???-???-??? -???-???-???-???-??? -???-???- Glucose FHR FuHt Pres Dilation -???-???-???-???-??? -???-???-???-???-??? -???-???- Effaced St Visit Note 12/22/23 -???-???-???-???-??? -???-???-???-???-??? -???-???- 9w 6d 122 lb (+0 oz) 116/79 -???-???-???-???-??? -???-???-???-???-??? -???-???- 158 -???-???-???-???-??? -???-???-???-???-??? -???-???- LC-3.78cm on with LMP. 01/24/24 -???-???-???-???-??? -???-???-???-???-??? -???-???- 14w 4d 127 lb 6 oz (+5 lb 6 oz) 108/72 -??? (more content not included)... Normal [facility] Chlamydia/GC MISSY aptimaon CHLAMY,NUC ACID Negative Normal Negative [facility] Comment on above: Performed By: #### L 7000.1800, M100.2200 ####[facility] [address] [place], [address] GC BY NUC ACID Negative Normal Negative [facility] Comment on above: Result Comment: Perf ormed at: =G - [facility] [address] [id number] Deckhand Engineer: Mildred Meek MD, Phone: [phone] Performed By: #### L 7000.1800, M100.2200 ####[facility] [address] [place], [address] Urine Cultureon 12-24-2023 [facility] Below infection level. Mixed Gram Pos Gram Neg Org [place] Count <1000 MIXC Mixed contaminants. Submit a new specimen if indicated. Normal [facility] Comment on above: Performed By: #### L 7000.1800, M100.2200 ####[facility] [address] [place], [address] CBC W/Diff, Automatedon 10-0 Absolute Lymph 1.66 X10 3/uL Normal 0.83-4.51 [facility] Comment on above: Performed By: #### L 501.9520, L3890.6005, L509.8000, L3890.6300, L100.0100, L3890.6100, L506.0400, L509.4005, BTS #### [facility] [address] [place], [address] Absolute Neut 4.7 X10 3/uL Normal 2.0-7.7 [facility] Comment on above: Performed By: #### L 501.9520, L3890.6005, L509.8000, L3890.6300, L100.0100, L3890.6100, L506.0400, L509.4005, BTS #### [facility] [address] [place], [address] Basophils/100 WBC (Bld) 0.9 % Normal 0-1 [facility] Comment on above: Performed By: #### L 501.9520, L3890.6005, L509.8000, L3890.6300, L100.0100, L3890.6100, L506.0400, L509.4005, BTS #### [facility] [address] [place], [address] Eosinophils/100 WBC (Bld) 2.1 % Normal 0-5 [facility] Comment on above: Performed By: #### L 501.9520, L3890.6005, L509.8000, L3890.6300, L100.0100, L3890.6100, L506.0400, L509.4005, BTS #### [facility] [address] [place], [address] Erythrocyte distribution width (RBC) [Ratio] 12.5 % Normal 11.6-14.6 [facility] Comment on above: Performed By: #### L 501.9520, L3890.6005, L509.8000, L3890.6300, L100.0100, L3890.6100, L506.0400, L509.4005, BTS #### [facility] [address] [place], [address] Hematocrit (Bld) [Volume fraction] 40.3 % Normal 37-47 [facility] Comment on above: Performed By: #### L 501.9520, L3890.6005, L509.8000, L3890.6300, L100.0100, L3890.6100, L506.0400, L509.4005, BTS #### [facility] [address] [place], [address] Hemoglobin (Bld) [Mass/Vol] 13.3 g/dL Normal 12.0-15.0 [facility] Comment on above: Performed By: #### L 501.9520, L3890.6005, L509.8000, L3890.6300, L100.0100, L3890.6100, L506.0400, L509.4005, BTS #### [facility] [address] [place], [address] IG% 0.300 Normal 0.0-0.9 [facility] Comment on above: Result Comment: IG% - Immature Granulocytes (promyelocytes, myelocytes and metamyelocytes) > 1% indicates that a LEFT SHIFT is Present. Performed By: #### L 501.9520, L3890.6005, L509.8000, L3890.6300, L100.0100, L3890.6100, L506.0400, L509.4005, BTS #### [facility] [address] [place], [address] Lymphocytes/100 WBC (Bld) 23.8 % Normal 19-41 [facility] Comment on above: Performed By: #### L 501.9520, L3890.6005, L509.8000, L3890.6300, L100.0100, L3890.6100, L506.0400, L509.4005, BTS #### [facility] [address] [place], [address] MCH (RBC) [Entitic mass] 28.3 pg Normal 27.0-32.0 [facility] Comment on above: Performed By: #### L 501.9520, L3890.6005, L509.8000, L3890.6300, L100.0100, L3890.6100, L506.0400, L509.4005, BTS #### [facility] [address] [place], [address] MCHC (RBC) [Mass/Vol] 33.0 g/dL Normal 32-36 [facility] Comment on above: Performed By: #### L 501.9520, L3890.6005, L509.8000, L3890.6300, L100.0100, L3890.6100, L506.0400, L509.4005, BTS #### [facility] [address] [place], [address] MCV (RBC) [Entitic vol] 85.7 fL Normal 81-99 [facility] Comment on above: Performed By: #### L 501.9520, L3890.6005, L509.8000, L3890.6300, L100.0100, L3890.6100, L506.0400, L509.4005, BTS #### [facility] [address] [place], [address] Monocytes/100 WBC (Bld) 5.3 % Normal 0-10 [facility] Comment on above: Performed By: #### L 501.9520, L3890.6005, L509.8000, L3890.6300, L100.0100, L3890.6100, L506.0400, L509.4005, BTS #### [facility] [address] [place], [address] Neutrophils/100 WBC (Bld) 67.6 % Normal 47-70 [facility] Comment on above: Performed By: #### L 501.9520, L3890.6005, L509.8000, L3890.6300, L100.0100, L3890.6100, L506.0400, L509.4005, BTS #### [facility] [address] [place], [address] Nucleated RBC (Bld) [#/Vol] 0 10*3/uL Normal 0-5 [facility] Comment on above: Performed By: #### L 501.9520, L3890.6005, L509.8000, L3890.6300, L100.0100, L3890.6100, L506.0400, L509.4005, BTS #### [facility] [address] [place], [address] ( Platelet mean volume (Bld) [Entitic vol] 9.9 fL Normal 6.2-12.0 [facility] Comment on above: Performed By: #### L 501.9520, L3890.6005, L509.8000, L3890.6300, L100.0100, L3890.6100, L506.0400, L509.4005, BTS #### [facility] [address] [place], [address] (406 Platelets (Bld) [#/Vol] 280 10*3/uL Normal 150-450 [facility] Comment on above: Performed By: #### L 501.9520, L3890.6005, L509.8000, L3890.6300, L100.0100, L3890.6100, L506.0400, L509.4005, BTS #### [facility] [address] [place], [address] (169 RBC (Bld) [#/Vol] 4.70 10*6/uL Normal 4.2-5.4 [facility] Comment on above: Performed By: #### L 501.9520, L3890.6005, L509.8000, L3890.6300, L100.0100, L3890.6100, L506.0400, L509.4005, BTS #### [facility] [address] [place], [address] ( RDW SD 39.0 fl Normal 35.1-43.9 [facility] Comment on above: Performed By: #### L 501.9520, L3890.6005, L509.8000, L3890.6300, L100.0100, L3890.6100, L506.0400, L509.4005, BTS #### [facility] [address] [place], [address] WBC (Bld) [#/Vol] 7.0 10*3/uL Normal 4.4-11.0 [facility] Comment on above: Performed By: #### L 501.9520, L3890.6005, L509.8000, L3890.6300, L100.0100, L3890.6100, L506.0400, L509.4005, BTS #### [facility] [address] [place], [address] HIV - WCHon 12-22-2023 HIV Non-Reactive Normal Nonreactive [facility] Comment on above: Order Comment: Reaso n for Exam: Performed By: #### L 501.9520, L3890.6005, L509.8000, L3890.6300, L100.0100, L3890.6100, L506.0400, L509.4005, BTS ####[facility] [address] [place], [address] Hepatitis B Surface Antigeno n 12-22-2023 HEP B Surf Ag Non-Reactive Normal Nonreactive [facility] Comment on above: Order Comment: Reaso n for Exam: Performed By: #### L 501.9520, L3890.6005, L509.8000, L3890.6300, L100.0100, L3890.6100, L506.0400, L509.4005, BTS ####[facility] [address] [place], [address] Hepatitis C Antibodyon 12-21 Hepatitis C AB Non-Reactive Normal Nonreactive [facility] Comment on above: Order Comment: Reaso n for Exam: Result Comment: Non Reactive: < 0.8 Equivocal: >/= 0.8 to < 1.0 Reactive: >/= 1.0 The CDC requires that a reactive/equivocal HCV antibody result be sent out for confirmation. HCV Quant by PCR testing. Performed By: #### L 501.9520, L3890.6005, L509.8000, L3890.6300, L100.0100, L3890.6100, L506.0400, L509.4005, BTS ####[facility] [address] [place], [place], [id number] L509.8000on 12-22-2023 Syphilis Abs Non-Reactive Normal [facility] Comment on above: Order Comment: Reaso n for Exam: Performed By: #### L 501.9520, L3890.6005, L509.8000, L3890.6300, L100.0100, L3890.6100, L506.0400, L509.4005, BTS ####[facility] [address] [place], [place], [id number] Medical Laboratory Specialist Office Visit Reporton 12-22-2023 Medical Laboratory Specialist Office Visit Report [facility] [address], [address] [place] [address] OFFICE VISIT Date of Service: 12/22/23 MR#: [id number] Acct: [id number] Name: KAUSHAL RODRIGUEZ Rep #: [id number] : 1995 Provider: CHITO white Age/Sex: 28/F [place] [facility] [place]: Signed Intake Vital Signs 12/06/21 07:15 12/22/23 14:34 12/22/23 14:38 Height 5 ft 3 in 5 ft 3 in 5 ft 3 in Weight: 122 lb BMI 21.6 BP 116/79 Intake Visit Reasons: NOB LMP 10/13 Appliance Adjuster Required: No Is patient in pain?: No Allergies sulfamethoxazole (From Bactrim) Allergy (Severe, Verified 12/22/23 14:33) Swelling trimethoprim (From Bactrim) Allergy (Verified 12/22/23 14:33) Rash gluten Adverse Reaction (Intermediate, Verified 12/22/23 14:33) Abd cramps/diarrhea Medications ???Medication ???Instructions ???Recorded ???Confirmed ???Type doxylamine succinate 25 mg tablet 12.5 mg PO QHS PRN 12/15/23 12/15/23 History (Unisom (doxylamine)) multivit-min no.71-iron fum 28 cap PO 12/15/23 12/15/23 History mg-folate no.1 1 mg-dha 300 mg capsule (PNV-Ridott) pyridoxine (vitamin B6) 25 mg 12.5 mg PO QDAY 12/15/23 12/15/23 History tablet cephalexin 250 mg capsule 250 mg PO ONCE uti prevention #20 12/22/23 12/22/23 Rx caps Last Menstrual Period: 10/14/23 Zika: Zika virus screening: Negative : No Have you fallen in the past year?: No PFSH PFSH Medical History Vaginal delivery Seasonal allergies Surgical History History of surgery Family History Mother Thyroid disorder hypothyroidism Aunt Thyroid disorder Maternal Hypothyroid Grandmother Thyroid disorder Maternal hypothyroid Social History adopted: No household members: spouse and children number of children: 1 service: No current occupational status: employed current occupation: [employer] current occupational exposures/hazards: No pets and animals: Yes pets and animals: dog(s) history of recent travel: No sexually active: Yes Smoking Status: Never smoker alcohol intake: never substance use type: does not use diet: gluten free well-balanced diet: daily or most days caffeine: No eating out: rarely or never during the past year weight has: remained stable what type of physical activity do you participate in: walking frequency: 3-4 times per week duration: 15-30 minutes/day polly/mu-ism: Mu-Ism seatbelt use: always do you feel safe at home: Yes 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 Date Name GA/Weeks Outcome Route Bth Weight Infant Gen Labor Lgth Anesthesia Del Locatn Provider FOB 12/01/21 Rishabh 41 live - full term 7#1oz Female epidural [facility] pierce Coates Delivery Date: 12/01/21 Last Updated by: Elma Mai IOL post dates HPI NOB LMP 10/13 Details: KAUSHAL RODRIGUEZ is a 28 year old who presents for New OB visit. OB Visit ROLAND Calculator Estimated Delivery Date Method Current WG Current Estimate 07/20/24 LMP (Certain) 9w 6d Comments: HIV: Urine Culture: Sequential Screen: NIPT Screen: Estimated Due Date: 07/20/24 Expected Delivery Route/Plan Labor Preferences- CB/BF classes: [] labor support person: [] labor intervention preferences: [] pain management options preferred: [] cut cord/dad catch: [] : [] PP control planned: [] discussed possible routes of delivery and associated risks: [] special requests: [] Specific Issue/Plans Covid status: [] Flu vaccine: [] Tdap vaccine: [] Rhogam: [] LARC form signed: [] Problem list reviewed and updated with the most current plan of care details and appropriate orders placed. Relevant counseling for the gestational age provided. Continue routine care and follow up unless otherwise noted in visit notes/problem list details Initial Weight: 122 lb Date -???-???-???-???-??? -???-???-???-???-??? -???-???- EGA Weight BP Urine Prot -???-???-???-???-??? -???-???-???-???-??? -???-???- Glucose FHR FuHt Pres Dilation -???-???-???-???-??? -???-???-???-???-??? -???-???- Effaced St Visit Note 12/22/23 -???-???-???-???-??? -???-???-???-???-??? -???-???- 9w 6d 122 lb (+0 oz) 116/79 -???-???-???-???-??? -???-???-???-???-??? -???-???- 158 -???-???-???-???-??? -???-???-???-???-??? -???-???- LC-3.78cm on with LMP (more content not included)... Normal [facility] Rubella IgGon 12-22-2023 Rubella IgG Reactive Normal Nonreactive [facility] Comment on above: Order Comment: Reaso n for Exam: Result Comment: Anti body Results Interpretation of Immune Status Non Reactive Presumed Non-Immune Equivocal Equivocal Reactive Presumed Immune Performed By: #### L 501.9520, L3890.6005, L509.8000, L3890.6300, L100.0100, L3890.6100, L506.0400, L509.4005, BTS ####[facility] [address] [place], [place], [id number] T4 Free Directon 12-22-2023 T4 FREE DIRECT 1.24 ng/dL Normal 0.76-1.46 [facility] Comment on above: Performed By: #### L 501.9520, L3890.6005, L509.8000, L3890.6300, L100.0100, L3890.6100, L506.0400, L509.4005, BTS ####[facility] [address] [place], [place], [id number] Thyroid Stim Hormone (TSH)on 12-22-2023 TSH 1.610 uIU/mL Normal 0.358-3.740 [facility] Comment on above: Performed By: #### L 501.9520, L3890.6005, L509.8000, L3890.6300, L100.0100, L3890.6100, L506.0400, L509.4005, BTS ####[facility] [address] [place], [place], [address] Type AND Screenon 12-22-2023 ABO and Rh group Nom (Bld) Blood group A Rh(D) positive Normal [facility] Comment on above: Order Comment: PN Performed By: #### L 501.9520, L3890.6005, L509.8000, L3890.6300, L100.0100, L3890.6100, L506.0400, L509.4005, BTS ####[facility] [address] [place], [place], [id number] CNPNon 07-17-2023 CNPN Telephone (OBGYWM) KAUSHAL RODRIGUEZ ([id number]) 1995 F Date Time Provider Department 07/17/23 LETTY MAHONEY OBGYWM During your visit today, we recorded the following information about you: Zeina Oh RN 07/17/2023 9:34 AM Signed Received fax from [employer] regarding Keflex rx. States they need to to know max number of capsules patient can take per day too. Please update rx and file again. Zenia Oh RN Allergies As of Date: 07/17/2023 Noted Allergy Reaction GLUTEN 07/14/2023 8 - GI Upset SULFA (SULFONAMIDE ANTIBIOTICS) 11/05/2020 4 - Hives 9 - Itching 2 - Rash 7 - Swelling Date Reviewed: 07/14/2023 Reviewed by: Letty Mahoney MD - Fully Assessed Reason for Visit: Medication Clarification [Other] Order(s):cephALEXin (KEFLEX) 250 mg capsuleTake 1 capsule by mouth as directed. after intercourse to prevent UTI, take no more than one per day.Disp: 60 capsuleRfl: 1 Prescriptions as of 07/17/2023 - cephALEXin (KEFLEX) 250 mg capsule Take 1 capsule by mouth as directed. after intercourse to prevent UTI, take no more than one per day. - PNV no.139-iguz-kochn acid ( VITAMIN) 28 mg iron- 800 mcg tab - Magnesium 250 mg tab Take 250 mg by mouth once daily. - SPRINTEC 0.25-35 mg-mcg per tablet Take 1 tablet by mouth every afternoon. Problem List As Of Date: 07/17/2023 (None) Prescriptions ordered this encounter Disp Refills Start End CEPHALEXIN 250 MG CAPSULE 60 c* 1 07/17/2023 Route: ORAL Sig: Take 1 capsule by mouth as directed. after intercourse to prevent UTI, take no more than one per day. Medications Discontinued During This Encounter Prescriptions - cephALEXin (KEFLEX) 250 mg capsule (Discontinued) Take 1 capsule by mouth as directed. after intercourse to prevent UTI Encounter Status:Closed by LETTY MAHONEY on 07/17/23 [facility] CNOVkathleen 07-14-2023 CNOV Office Visit (OBGYWM) KAUSHAL RODRIGUEZ ([id number]) 1995 F Date Time Provider Department 07/14/23 9:40 AM LETTY MAHONEY OBGYWM During your visit today, we recorded the following information about you: Blood pressure Weight Height Last Period 108/66 57 kg 1.6 m 06/30/23 Letty Mahoney MD 07/14/2023 9:50 AM Signed Kaushal is a 28 year old No obstetric history on file. who presents for an annual gynecologic exam with complaints, some vaginal dryness since had her 18 month old. Not anymore. Is on OCPs. Notes has lubrication but has some feeling of lack of elasticity and stinging during intercourse and once it starts it gets worse. Tried several OTC lubricants and some help more than others but didn't have this before she had her daughter. Notes had a vaginal delivery and 2 tears. Menses: cycles every 28 days and 7 days of flow. Contraception: combined hormonal contraceptives HPV vaccine: No Last Pap: 07/20/2022 Normal HPV: N/A History of abnormal pap: No Last mammogram: Never Sexually active: Yes OB History No obstetric history on file. 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 No pertinent past medical history.History reviewed. No pertinent surgical history.History reviewed. No pertinent family history.SOCIAL HISTORY Social History Tobacco Use Smoking status: Never Smokeless tobacco: Never Substance Use Topics Alcohol use: Not Currently Drug use: Never REVIEW OF SYSTEMS Abdomen: No abdominal pain, nausea, vomiting, diarrhea, or constipation. No bloating, early satiety, indigestion, or increased flatulence. Bladder: No dysuria, gross hematuria, urinary frequency, urinary urgency, or incontinence. Breast: No breast lumps, nipple d/c, overlying skin changes, redness or skin retraction. Allergies and current medication updated:Yes EXAM: BP 108/66 Ht 5' 3 (1.60m) Wt 125 lb 9.6 oz (57.0kg) LMP 06/30/2023 BMI 22.25 kg/(m2). GENERAL: pleasant, female in no apparent distress HEENT: Normocephalic, atraumatic, mucus membranes moist, and no lesions NECK: Supple, full range of motion, no adenopathy, and thyroid normal DERMATOLOGY: Normal, without lesions, non-icteric, and non-hirsute BREAST: soft, non-tender, symmetric, no dominant mass, normal nipple-areolar complex, no lymphadenopathy, and no nipple discharge CHEST: Normal inspiratory effort ABDOMEN: soft, non-tender, and no masses PELVIC: external genitalia normal, normal Bartholin's glands, urethra, [place]'s glands, no vulvar lesions, no cervical lesions, good vaginal support, physiologic discharge present, normal appearing perineal body and perianal region, no tenderness over levators, normal depth and caliper BIMANUAL: uterus normal size, shape and consistency, no adnexal masses, and non-tender RECTOVAGINAL: deferred. NEURO: alert and oriented x3,exam grossly non-focal EXTREMITIES: normal ASSESSMENT/PLAN: 1) Health maintenance: Pap/HPV up to date. Mammogram starting age 40. HPV vaccine: discussed, not interested 2) Contraception: combined hormonal contraceptives. Contraceptive options reviewed and information provided. 3) STD screening: Declined STD check. 4) Follow up one year or sooner as needed vaginal pain- d/w her no visual or structural abnormalities, no levator spasm. could consider seeing how she does off OCPS. Will likely d/c them later in the year to attempt . D/w her could trial vaginal amitryptiline to see if that would help, would like to trial that. Call if worsens. keflex prn to prevent UTIs after intercourse Letty Mahoney MD Allergies As of Date: 07/14/2023 Noted Allergy Reaction GLUTEN 07/14/2023 8 - GI Upset SULFA (SULFONAMIDE ANTIBIOTICS) 11/05/2020 4 - Hives 9 - Itching 2 - Rash 7 - Swelling Date Reviewed: 07/14/2023 Reviewed by: Letty Mahoney MD - Fully Assessed Primary Visit Diagnosis:Encounter for gynecological examination (general) (routine) without abnormal findings [Z01.419] Order(s):SPRINTEC 0.25-35 mg-mcg per tabletTake 1 tablet by mouth every afternoon.Disp: 84 tabletRfl: 3 cephALEXin (KEFLEX) 250 mg capsuleTake 1 capsule by mouth as directed. after intercourse to prevent UTIDisp: 60 capsuleRfl: 1 Prescriptions as of 07/14/2023 - PNV no.787-iagw-uukky acid ( VITAMIN) 28 mg iron- 800 mcg tab - Magnesium 250 mg tab Take 250 mg by mouth once daily. - SPRINTEC 0.25-35 mg-mcg per tablet Take 1 tablet by mouth every afternoon. - cephALEXin (KEFLEX) 250 mg capsule Take 1 capsule by mouth as directed. after intercourse to prevent UTI Problem List As Of Date: 07/14/2023 (None) Prescrip (more content not included)... Normal [facility] Basophil percentageOrdered B y: Paris Lee on 06-23-2023 Basophil percentage < 10.0 IU/mL <15 [facility] Bilirubin [Mass/Vol] 0.30 mg/dL 0.20-1.00 [facility] Comment on above: For patients on eltr ombopag therapy, use of Dimension [place] TBIL is not recommended. Chloride [Moles/Vol] 107 mmol/L 98-107 [facility] Glucose [Mass/Vol] 93 mg/dL 74-106 [facility] Potassium [Moles/Vol] 3.7 mmol/L 3.5-5.1 [facility] Protein [Mass/Vol] 7.4 g/dL 6.4-8.2 [facility] Sodium [Moles/Vol] 138 mmol/L 136-145 [facility] Erythrocyte sedimentation ra teOrdered By: Paris Lee on 06-23-2023 ESR (Bld) [Velocity] 7 mm/h 0-30 [facility] - Chemistry and C hemistry - challengeOrdered By: Paris Lee on 06-23-2023 Albumin/Globulin [Mass ratio] 0.9 {ratio} 0.9-2.4 [facility] ALP [Catalytic activity/Vol] 45 U/L 45-117 [facility] ALT [Catalytic activity/Vol] 24 U/L 13-56 [facility] CO2 [Moles/Vol] 28.0 mmol/L 21.0-32.0 [facility] Globulin (S) [Mass/Vol] 3.8 g/dL 2.2-4.2 [facility] Urea nitrogen/Creatinine [Mass ratio] 24.0 mg/mg 10-20 [facility] No Panel InformationOrdered By: Paris Lee on 06-23-2023 Anti-Nuclear Antibody Screen Negative Negative [facility] Comment on above: Performed at: [address] [id number] Director: Merlin Cordero PhD, Phone: [phone] C-Reactive Protein Extended Range 3.60 mg/L 0.0-3.0 [facility] Comment on above: C-Reactive Protein ( CRP) provides useful information for thediagnosis, therapy and monitoring of inflammatory processesand associated diseases. For the evaluation of Relative Riskfor Cardiovascular Disease, a High Sensitivity CRP (HSCRP)should be ordered. Estimated GFR (MDRD) Amer 134 mL/min >60 [facility] Comment on above: GFR Calc Estimated GFR (MDRD) Non-Af Amer 111 mL/min >60 [facility] Comment on above: Non- GFR Calc Serum cyclic citrullinated p eptide IgG antibody assay (units/volume)Ordered By: Paris Lee on 06-23-2023 Cyclic citrullinated peptide IgG Qn 2 units 0-19 [facility] Comment on above: Negative <20 Weak po sitive 20 - 39 Moderate positive 40 - 59 Strong positive >59Performed at: [place] [id number] Director: Merlin Cordero PhD, Phone: [phone] Serum or plasma calcium tiny urement (mass/volume)Ordered By: Paris Lee on 06-23-2023 Calcium [Mass/Vol] 9.0 mg/dL 8.5-10.1 [facility] Serum or plasma creatinine m easurement (mass/volume)Ordered By: Paris Lee on 06-23-2023 Creatinine [Mass/Vol] 0.67 mg/dL 0.55-1.02 [facility] Comment on above: The validity of the calculated GFR & GFRAA in patients over 70 years has not been determined. Clinical correlation is essential. Serum or plasma urea nitroge n measurement (mass/volume)Ordered By: Paris Lee on 06-23-2023 Urea nitrogen [Mass/Vol] 16 mg/dL 7-18 [facility] Thin prep Papanicolaou smear with manual screeningOrdered By: Paris Lee on 06-23-2023 Thin prep Papanicolaou smear with manual screening 3.6 g/dL 3.2-5.0 [facility] Thin prep Papanicolaou smear with manual screening 17 U/L 15-37 [facility] Thin prep Papanicolaou smear with manual screening 3 5-15 [facility] Serum or plasma thyroid stim ulating hormone (TSH) measurement (units/volume)Ordered By: Paris Lee on 06-20-2023 TSH Qn 2.57 uIU/mL 0.358-3.74 [facility] Thin prep Papanicolaou smear with manual screeningOrdered By: Paris Lee on 06-20-2023 Thin prep Papanicolaou smear with manual screening 1.08 ng/dL 0.76-1.46 [facility] Culture, urineOrdered By: Ean Lee on 01-16-2023 Bacteria identified Cx Nom (U) GPC Poss Enterococcus sp [facility] CNPNon 11-16-2022 CNPN Telephone (OBGYWM) KAUSHAL RODRIGUEZ ([id number]) 1995 F Date Time Provider Department 11/16/22 LETTY MAHONEY During your visit today, we recorded the following information about you: Vanessa Avina LPN 11/16/2022 1:05 PM Signed Medical records received and placed in Dr. Mahoney's nurse area. Allergies As of Date: 11/16/2022 (Not on File) Date Reviewed: Never Reviewed Reason for Visit: Received Outside Medical Records [[id number]] Problem List As Of Date: 11/16/2022 (None) Encounter Status:Closed by VANESSA AVINA LPN on 11/16/22 Normal [facility] - Chemistry and C hemistry - challengeOrdered By: Paris Lee on 10-17-2022 Free T4 [Mass/Vol] 1.20 ng/dL 0.76-1.46 [facility] No Panel InformationOrdered By: Paris Lee on 10-17-2022 Free Triiodothyronine (T3) pg/dL 3.0 pg/mL 2.18-3.98 [facility] Thyroid Stimulating Hormone (TSH) 4.60 uIU/mL 0.358-3.74 [facility] - Chemistry and C hemistry - challengeOrdered By: Dr. Lee on 07-19-2022 T4 [Mass/Vol] 9.4 ug/dL 4.8-13.9 [facility] No Panel InformationOrdered By: Dr. Lee on 07-19-2022 Free Triiodothyronine (T3) pg/dL 2.7 pg/mL 2.18-3.98 [facility] Thyroid Stimulating Hormone (TSH) 3.94 uIU/mL 0.358-3.74 [facility] Basophil percentageOrdered B y: Dr. Barrientos on 07-12-2022 WBC (Bld) [#/Vol] 5.5 10*3/uL 4.4-11.0 [facility] Blood erythrocytes count (nu mber/volume)Ordered By: Dr. Barrientos on 07-12-2022 RBC (Bld) [#/Vol] 4.84 10*6/uL 4.2-5.4 [facility] Blood hemoglobin measurement (mass/volume)Ordered By: Dr. Barrientos on 07-12-2022 Hemoglobin (Bld) [Mass/Vol] 13.7 g/dL 12.0-15.0 [facility] Blood platelet mean volumeOr dered By: Dr. Barrientos on 07-12-2022 Platelet mean volume (Bld) [Entitic vol] 10.9 fL 6.2-12.0 [facility] Cervical or vagninal specime n microscopic examination by cytology stain (reported asOrdered By: Dr. Barrientos on 07-12-2022 Cytology report Cyto stain Doc (Cvx/Vag) Comment . [facility] Comment on above: The Pap smear is a s creening test designed to aid in thedetection of premalignant and malignant conditions of theuterine cervix. It is not a diagnostic procedure andshould not be used as the sole means of detecting cervicalcancer. Both false-positive and false-negative reports dooccur. Detection in cervical specim en of any of human papilloma virus (HPV) 16, 18, 31, 33,Ordered By: Dr. Barrientos on 07-12-2022 HPV 16+18+31+33+35+39+45+51 +52+56+58+59+66+68 DNA Probe+sig amp Ql (Cvx) Negative Negative [facility] Comment on above: This nucleic acid am plification test detects fourteen high-risk HPV types (16,18,31,33,35,39,45,51,52,56,58,59,66,68)without differentiation. Determination of erythrocyte mean corpuscular volume (MCV)Ordered By: Dr. Barrientos on 07-12-2022 MCV (RBC) [Entitic vol] 85.7 fL 81-99 [facility] Hematocrit Auto (Bld) [Volum e fraction]Ordered By: Dr. Barrientos on 07-12-2022 Hematocrit (Bld) [Volume fraction] 41.5 % 37-47 [facility] Laboratory - Chemistry and C hemistry - challengeOrdered By: Dr. Barrientos on 07-12-2022 Free T4 [Mass/Vol] 0.94 ng/dL 0.76-1.46 [facility] Laboratory - CytologyOrdered By: Dr. Barrientos on 07-12-2022 Director Of Payroll Cyto stain Nom (Cvx/Vag) [ID] Comment . [facility] Comment on above: Judith Friedman, Cyto technologist (ASCP) Laboratory - Hematology and Cell countsOrdered By: Dr. Barrientos on 07-12-2022 Erythrocyte distribution width (RBC) [Entitic vol] 42.5 fL 35.1-43.9 [facility] Erythrocyte distribution width (RBC) [Ratio] 13.5 % 11.6-14.6 [facility] MCH (RBC) [Entitic mass] 28.3 pg 27.0-32.0 [facility] Laboratory - Miscellaneous t estsOrdered By: Dr. Barrientos on 07-12-2022 Service comment (Unsp spec) [Interp] Comment . [facility] Comment on above: This liquid based Th inPrep(R) pap test was screened withthe use of an image guided system. Service comment (Unsp spec) [Interp] . . [facility] Liquid-based cerv Pap + CT/G C by MISSY w reflex to high-risk HPV for ASCUSOrdered By: Dr. Barrientos on 07-12-2022 Cytology report Cyto stain.thin prep Doc (Cvx/Vag) Comment . [facility] Comment on above: Criteria not met, HP V Genotype not performed.Performed at: [facility] [id number] Director: Mildred Meek MD, Phone: [phone] at: =[facility] - [facility] [id number] Director: Mildred Meek MD, Phone: [phone] MCHC Auto (RBC) [Mass/Vol]Or dered By: Dr. Barrientos on 07-12-2022 MCHC (RBC) [Mass/Vol] 33.0 g/dL 32-36 [facility] No Panel InformationOrdered By: Dr. Barrientos on 07-12-2022 Thyroid Stimulating Hormone (TSH) 7.86 uIU/mL 0.358-3.74 [facility] Pathology report final diagnosis Narrative Comment . [facility] Comment on above: NEGATIVE FOR INTRAEP ITHELIAL LESION OR MALIGNANCY. Platelets bldOrdered By: Dr. Barrientos on 07-12-2022 Platelets (Bld) [#/Vol] 259 10*3/uL 150-450 [facility] Serum or plasma ferritin luz surement (mass/volume)Ordered By: Dr. Barrientos on 07-12-2022 Ferritin [Mass/Vol] 74 ng/mL 8-252 [facility] Basophil percentageon 2021 WBC (Bld) [#/Vol] 12.8 10*3/uL 4.4-11.0 [facility] Work Phone: Blood erythrocytes count (nu mber/volume)on 12-02-2021 RBC (Bld) [#/Vol] 4.44 10*6/uL 4.2-5.4 [facility] Work Phone: Blood hemoglobin measurement (mass/volume)on 12-02-2021 Hemoglobin (Bld) [Mass/Vol] 12.6 g/dL 12.0-15.0 [facility] Work Phone: Blood platelet mean volumeon 12-02-2021 Platelet mean volume (Bld) [Entitic vol] 10.5 fL 6.2-12.0 [facility] Work Phone: Determination of erythrocyte mean corpuscular volume (MCV)on 12-02-2021 MCV (RBC) [Entitic vol] 87.4 fL 81-99 [facility] Work Phone: Hematocrit Auto (Bld) [Volum e fraction]on 12-02-2021 Hematocrit (Bld) [Volume fraction] 38.8 % 37-47 [facility] Work Phone: Laboratory - Hematology and Cell countson 12-02-2021 Erythrocyte distribution width (RBC) [Entitic vol] 45.5 fL 35.1-43.9 [facility] Work Phone: Erythrocyte distribution width (RBC) [Ratio] 14.4 % 11.6-14.6 [facility] Work Phone: MCH (RBC) [Entitic mass] 28.4 pg 27.0-32.0 [facility] Work Phone: MCHC Auto (RBC) [Mass/Vol]on 12-02-2021 MCHC (RBC) [Mass/Vol] 32.5 g/dL 32-36 [facility] Work Phone: Platelets bldon 12-02-2021 Platelets (Bld) [#/Vol] 258 10*3/uL 150-450 [facility] Work Phone: Absolute lymphocyte counton 11-30-2021 Lymphocytes Auto (Unsp spec) [#/Vol] 1.56 10*3/uL 0.83-4.51 [facility] Work Phone: Basophil percentageon 2021 Basophils/100 WBC (Bld) 0.5 % 0-1 [facility] Work Phone: Eosinophils/100 WBC (Bld) 1.2 % 0-5 [facility] Work Phone: Neutrophils (Bld) [#/Vol] 8.0 10*3/uL 2.0-7.7 [facility] Work Phone: Neutrophils/100 WBC (Bld) 76.0 % 47-70 [facility] Work Phone: Blood lymphocytes/100 leukoc yteson 11-30-2021 Lymphocytes/100 WBC (Bld) 14.8 % 19-41 [facility] Work Phone: Blood monocytes/100 leukocyt eson 11-30-2021 Monocytes/100 WBC (Bld) 6.6 % 0-10 [facility] Work Phone: Laboratory - Hematology and Cell countson 11-30-2021 Immature granulocytes/100 WBC (Bld) 0.900 % 0.0-0.9 [facility] Work Phone: Comment on above: IG% - Immature Granu locytes (promyelocytes, myelocytes and metamyelocytes) > 1% indicates that a LEFT SHIFT is Present. Nucleated RBC/100 WBC (Bld) [Ratio] 0 % 0-5 [facility] Work Phone: Basophil percentageon 2021 WBC (Bld) [#/Vol] 7.9 10*3/uL 4.4-11.0 [facility] Work Phone: Blood erythrocytes count (nu mber/volume)on 08-09-2021 RBC (Bld) [#/Vol] 4.07 10*6/uL 4.2-5.4 [facility] Work Phone: Blood hemoglobin measurement (mass/volume)on 08-09-2021 Hemoglobin (Bld) [Mass/Vol] 12.0 g/dL 12.0-15.0 [facility] Work Phone: Blood platelet mean volumeon 08-09-2021 Platelet mean volume (Bld) [Entitic vol] 10.6 fL 6.2-12.0 [facility] Work Phone: Determination of erythrocyte mean corpuscular volume (MCV)on 08-09-2021 MCV (RBC) [Entitic vol] 87.7 fL 81-99 [facility] Work Phone: Gestational diabetes screen 1-hour screen with 50g oral glucose loadon 08-09-2021 Glucose 1 Hr post 50 g glucose PO [Mass/Vol] 99 mg/dL 70-140 [facility] Work Phone: Hematocrit Auto (Bld) [Volum e fraction]on 08-09-2021 Hematocrit (Bld) [Volume fraction] 35.7 % 37-47 [facility] Work Phone: Laboratory - Hematology and Cell countson 08-09-2021 Erythrocyte distribution width (RBC) [Entitic vol] 41.8 fL 35.1-43.9 [facility] Work Phone: Erythrocyte distribution width (RBC) [Ratio] 12.9 % 11.6-14.6 [facility] Work Phone: MCH (RBC) [Entitic mass] 29.5 pg 27.0-32.0 [facility] Work Phone: MCHC Auto (RBC) [Mass/Vol]on 08-09-2021 MCHC (RBC) [Mass/Vol] 33.6 g/dL 32-36 [facility] Work Phone: Platelets bldon 08-09-2021 Platelets (Bld) [#/Vol] 264 10*3/uL 150-450 [facility] Work Phone: Culture, urineon 07-15-2021 Bacteria identified Cx Nom (U) Positive [facility] Work Phone: No Panel Informationon 06-07 Thyroid Stimulating Hormone (TSH) 2.65 uIU/mL 0.358-3.74 [facility] Work Phone: Absolute lymphocyte counton 04-05-2021 Lymphocytes Auto (Unsp spec) [#/Vol] 1.51 10*3/uL 0.83-4.51 [facility] Work Phone: Basophil percentageon 2021 Basophils/100 WBC (Bld) 0.8 % 0-1 [facility] Work Phone: Eosinophils/100 WBC (Bld) 1.6 % 0-5 [facility] Work Phone: Neutrophils (Bld) [#/Vol] 6.3 10*3/uL 2.0-7.7 [facility] Work Phone: Neutrophils/100 WBC (Bld) 73.4 % 47-70 [facility] Work Phone: WBC (Bld) [#/Vol] 8.6 10*3/uL 4.4-11.0 [facility] Work Phone: Blood erythrocytes count (nu mber/volume)on 04-05-2021 RBC (Bld) [#/Vol] 4.87 10*6/uL 4.2-5.4 [facility] Work Phone: Blood hemoglobin measurement (mass/volume)on 04-05-2021 Hemoglobin (Bld) [Mass/Vol] 14.1 g/dL 12.0-15.0 [facility] Work Phone: Blood lymphocytes/100 leukoc yteson 04-05-2021 Lymphocytes/100 WBC (Bld) 17.5 % 19-41 [facility] Work Phone: Blood monocytes/100 leukocyt eson 04-05-2021 Monocytes/100 WBC (Bld) 6.4 % 0-10 [facility] Work Phone: Blood platelet mean volumeon 04-05-2021 Platelet mean volume (Bld) [Entitic vol] 10.2 fL 6.2-12.0 [facility] Work Phone: Chlamydia trachomatis rRNA d etection by probe and target amplification methodon 04-05-2021 C. trachomatis rRNA MISSY+probe Ql (Unsp spec) Negative Negative [facility] Work Phone: Culture, urineon 04-05-2021 Bacteria identified Cx Nom (U) Culture exhibits no growth. [facility] Work Phone: Determination of erythrocyte mean corpuscular volume (MCV)on 04-05-2021 MCV (RBC) [Entitic vol] 84.6 fL 81-99 [facility] Work Phone: HIV 1 and HIV-2 antibody ass ay with HIV-1 p24 antigen detectionon 04-05-2021 HIV 1+2 Ab+HIV1 p24 Ag IA Ql Non-Reactive Nonreactive [facility] Work Phone: Hematocrit Auto (Bld) [Volum e fraction]on 04-05-2021 Hematocrit (Bld) [Volume fraction] 41.2 % 37-47 [facility] Work Phone: Laboratory - Hematology and Cell countson 04-05-2021 Erythrocyte distribution width (RBC) [Entitic vol] 39.8 fL 35.1-43.9 [facility] Work Phone: Erythrocyte distribution width (RBC) [Ratio] 13.1 % 11.6-14.6 [facility] Work Phone: Immature granulocytes/100 WBC (Bld) 0.300 % 0.0-0.9 [facility] Work Phone: Comment on above: IG% - Immature Granu locytes (promyelocytes, myelocytes and metamyelocytes) > 1% indicates that a LEFT SHIFT is Present. MCH (RBC) [Entitic mass] 29.0 pg 27.0-32.0 [facility] Work Phone: Nucleated RBC/100 WBC (Bld) [Ratio] 0 % 0-5 [facility] Work Phone: Laboratory - Microbiology an d Antimicrobial susceptibilityon 04-05-2021 N. gonorrhoeae DNA MISSY+probe Ql (Unsp spec) Negative Negative [facility] Work Phone: Comment on above: Performed at: =[facility] [place] [address] [facility] [id number] Director: Mildred Meek MD, Phone: [phone] MCHC Auto (RBC) [Mass/Vol]on 04-05-2021 MCHC (RBC) [Mass/Vol] 34.2 g/dL 32-36 [facility] Work Phone: No Panel Informationon 04-05 Hepatitis B Surface Antigen Non-Reactive Nonreactive [facility] Work Phone: Hepatitis C Antibody Non-Reactive Nonreactive [facility] Work Phone: Comment on above: Non Reactive: < 0.8 Equivocal: >/= 0.8 to < 1.0 Reactive: >/= 1.0The [facility] recommends that a reactive/equivocal HCV antibody result be followed up by the HCV Nucleic Acid Amplificationtest (952421) Rubella IgG Antibody Reactive Nonreactive [facility] Work Phone: Comment on above: Antibody Results Int erpretation of Immune Status Non Reactive Presumed Non-Immune Equivocal Equivocal Reactive Presumed Immune Platelets bldon 04-05-2021 Platelets (Bld) [#/Vol] 245 10*3/uL 150-450 [facility] Work Phone: Serum Treponema species anti body detectionon 04-05-2021 Treponema sp Ab Ql (S) Non-Reactive [facility] Work Phone: FLU SCREENon 03-19-2017 FLU SCREEN FLU SCREEN: FLU AB NEG FLU A B antigens may be below the test's detection limits. FLU SCRN: A+/B+/N/P FLU A AND B SCREEN: PRESUMPTIVE NEGATIVE Normal [facility] Comment on above: Performed By: #### F LIZZ SCREEN ####Main Lab - [id number] [id number] XR CHEST, PA/LATERALon 03-19 XR CHEST, PA/LATERAL [facility] [address] [place], [place] [id number] Diagnostic Imaging Report : [id number] Signed Name: KAUSHAL RODRIGUEZ Steven MRUN: [id number] : 1995 Loc: ED Age / Sex: 21 / F ADM Status: REG ER ADM Date: 03/19/17 Room/Bed: Ordering Physician: Gil Lee MD Procedure: XR CHEST, PA/LATERAL Order Number(s): [id number] Ordered Date: 03/19/17 Ordered Time: 0939 EXAMINATION: TWO VIEWS OF THE CHEST 03/19/2017 10:25 am COMPARISON: None. HISTORY: cough FINDINGS: The lungs are without acute focal process. There is no effusion or pneumothorax. The cardiomediastinal silhouette is without acute process. The osseous structures are without acute process. IMPRESSION: No acute process. Dictated By: Osbaldo Williamson MD Dictated Date/Time: 03/19/17 1112 Signed By: Osbaldo Williamson MD Signed Date/Time: 03/19/17 1117 Transcribed Date/Time: 03/19/17 1112 Normal [facility] Culture, urine Bacteria identified Cx Nom (U) Positive [facility] Work Phone: No Panel Information Group B Streptococcus Culture Group B Beta Streptococcus is not isolated. [facility] Work Phone: Vital Signs Date Time Vital Sign Value Performing Clinician Faci lity 09-05-2024 14:35-0400 Body height 160.[address] Paris Lee MD Work Phone: [facility] 09-05-2024 14:34-0400 Body mass index (BMI) [Ratio] 22.8 kg/m2 Dr. Paris Lee MD Work Phone: [facility] 09-05-2024 14:34-0400 Body weight 58.[address] Paris Lee MD Work Phone: [facility] 09-05-2024 14:34-0400 Diastolic blood pressure 76 mm[Hg] Dr. Paris Lee MD Work Phone: [facility] 09-05-2024 14:34-0400 Systolic blood pressure 113 mm[Hg] Dr. Paris Lee MD Work Phone: [facility] 07-16-2024 14:11-0400 Body temperature 97.6 [degF] Dr. Paris Lee MD Work Phone: [facility] 07-16-2024 14:11-0400 Diastolic blood pressure 66 mm[Hg] Dr. Paris Lee MD Work Phone: [facility] 07-16-2024 14:11-0400 Heart rate 80 /min Dr. Paris Lee MD Work Phone: [facility] 07-16-2024 14:11-0400 Respiratory rate 16 /min Dr. Paris Lee MD Work Phone: [facility] 07-16-2024 14:11-0400 Systolic blood pressure 108 mm[Hg] Dr. Paris Lee MD Work Phone: [facility] 07-16-2024 05:21-0400 SaO2% (BldA) [Mass fraction] 98 % Dr. Paris Lee MD Work Phone: [facility] 07-15-2024 18:20-0400 Body height 160.[address] Paris Lee MD Work Phone: [facility] 07-15-2024 18:20-0400 Body mass index (BMI) [Ratio] 26.2 kg/m2 Dr. Paris Lee MD Work Phone: [facility] 07-15-2024 18:20-0400 Body weight 67.[address] Paris Lee MD Work Phone: [facility] 07-12-2024 14:56-0400 Body mass index (BMI) [Ratio] 26.2 kg/m2 Dr. Paris Lee MD Work Phone: [facility] 07-12-2024 14:56-0400 Body weight 67.[address] Paris Lee MD Work Phone: [facility] 07-12-2024 14:56-0400 Diastolic blood pressure 69 mm[Hg] Dr. Paris Lee MD Work Phone: [facility] 07-12-2024 14:56-0400 Systolic blood pressure 115 mm[Hg] Dr. Paris Lee MD Work Phone: [facility] 07-05-2024 15:11-0400 Body mass index (BMI) [Ratio] 26.7 kg/m2 Dr. Paris Lee MD Work Phone: [facility] 07-05-2024 15:11-0400 Body weight 68.[address] Paris Lee MD Work Phone: [facility] 07-05-2024 15:11-0400 Diastolic blood pressure 79 mm[Hg] Dr. Paris Lee MD Work Phone: 7(089)952-372671 [place] [address] 07-05-2024 15:11-0400 Systolic blood pressure 116 mm[Hg] Dr. Paris Lee MD Work Phone: 5(315)390-012822 [place] [address] 06-28-2024 15:43-0400 Body height 160.[address] Paris Lee MD Work Phone: 3(638)912-643871 [place] [address] 06-28-2024 15:42-0400 Body mass index (BMI) [Ratio] 26.7 kg/m2 Dr. Paris Lee MD Work Phone: [facility] 06-28-2024 15:42-0400 Body weight 68.[address] Paris Lee MD Work Phone: [facility] 06-28-2024 15:42-0400 Diastolic blood pressure 71 mm[Hg] Dr. Paris Lee MD Work Phone: [facility] 06-28-2024 15:42-0400 Systolic blood pressure 107 mm[Hg] Dr. Paris Lee MD Work Phone: 8(567)298-452071 [place] [address] 06-14-2024 14:14-0400 Body height 160.[address] Paris Lee MD Work Phone: [facility] 06-14-2024 14:11-0400 Body mass index (BMI) [Ratio] 26.1 kg/m2 Dr. Paris Lee MD Work Phone: [facility] 06-14-2024 14:11-0400 Body weight 66.[address] Paris Lee MD Work Phone: [facility] 06-14-2024 14:11-0400 Diastolic blood pressure 76 mm[Hg] Dr. Paris Lee MD Work Phone: [facility] 06-14-2024 14:11-0400 Systolic blood pressure 116 mm[Hg] Dr. Paris Lee MD Work Phone: 7(353)224-845522 [place] [address] 05-31-2024 16:08-0400 Body mass index (BMI) [Ratio] 25.2 kg/m2 Dr. Paris Lee MD Work Phone: [facility] 05-31-2024 16:08-0400 Body weight 64.[address] Paris Lee MD Work Phone: [facility] 05-31-2024 16:08-0400 Diastolic blood pressure 65 mm[Hg] Dr. Paris Lee MD Work Phone: [facility] 05-31-2024 16:08-0400 Systolic blood pressure 98 mm[Hg] Dr. Paris Lee MD Work Phone: [facility] 05-13-2024 15:26-0500 Body height 160.[address] Paris Lee MD Work Phone: [facility] 05-13-2024 15:24-0500 Body mass index (BMI) [Ratio] 26.2 kg/m2 Dr. Paris Lee MD Work Phone: [facility] 05-13-2024 15:24-0500 Body weight 67.[address] Paris Lee MD Work Phone: [facility] 05-13-2024 15:24-0500 Diastolic blood pressure 71 mm[Hg] Dr. Paris Lee MD Work Phone: [facility] 05-13-2024 15:24-0500 Systolic blood pressure 111 mm[Hg] Dr. Paris Lee MD Work Phone: [facility] 04-26-2024 15:32-0500 Body mass index (BMI) [Ratio] 25.7 kg/m2 Dr. Paris Lee MD Work Phone: 0(570)688-968371 [place] [address] 04-26-2024 15:32-0500 Body weight 65.[address] Paris Lee MD Work Phone: 4(098)511-484771 [place] [address] 04-26-2024 15:32-0500 Diastolic blood pressure 67 mm[Hg] Dr. Paris Lee MD Work Phone: 0(953)699-593271 [place] [address] 04-26-2024 15:32-0500 Systolic blood pressure 115 mm[Hg] Dr. Paris Lee MD Work Phone: 5(278)702-773871 [place] [address] 2024 15:08-0500 Body mass index (BMI) [Ratio] 24.6 kg/m2 Dr. Paris Lee MD Work Phone: 7(264)297-829871 [place] [address] 2024 15:08-0500 Body weight 63.[address] Paris Lee MD Work Phone: 8(498)292-880822 [place] [address] 2024 15:08-0500 Diastolic blood pressure 64 mm[Hg] Dr. Paris Lee MD Work Phone: 6(988)618-273171 [place] [address] 2024 15:08-0500 Systolic blood pressure 100 mm[Hg] Dr. Paris Lee MD Work Phone: 8(037)795-359071 [place] [address] 02-27-2024 13:56-0500 Body mass index (BMI) [Ratio] 23.4 kg/m2 Dr. Paris Lee MD Work Phone: 3(023)293-957571 [place] [address] 02-27-2024 13:56-0500 Body weight 59.[address] Paris Lee MD Work Phone: [facility] 02-27-2024 13:56-0500 Diastolic blood pressure 62 mm[Hg] Dr. Paris Lee MD Work Phone: [facility] 02-27-2024 13:56-0500 Systolic blood pressure 104 mm[Hg] Dr. Paris Lee MD Work Phone: [facility] 01-24-2024 14:50-0500 Body mass index (BMI) [Ratio] 22.5 kg/m2 Dr. Paris Lee MD Work Phone: [facility] 01-24-2024 14:50-0500 Body weight 57.[address] Paris Lee MD Work Phone: [facility] 01-24-2024 14:50-0500 Diastolic blood pressure 72 mm[Hg] Dr. Paris Lee MD Work Phone: [facility] 01-24-2024 14:50-0500 Systolic blood pressure 108 mm[Hg] Dr. Paris Lee MD Work Phone: [facility] 07-14-2023 09:29-0400 Body height 160 cm Letty Mahoney MD Work Phone: [facility] 07-14-2023 09:29-0400 Body mass index (BMI) [Ratio] 22.25 kg/m2 Letty Mahoney MD Work Phone: [facility] 07-14-2023 09:29-0400 Body weight 56.97 kg Letty Mahoney MD Work Phone: [facility] 07-14-2023 09:29-0400 Diastolic blood pressure 66 mm[Hg] Letty Mahoney MD Work Phone: [facility] 07-14-2023 09:29-0400 Systolic blood pressure 108 mm[Hg] Letty Mahoney MD Work Phone: [facility] 12-02-2021 09:21-0400 Body temperature 97.5 [degF] [facility] Work Phone: 12-02-2021 09:21-0400 Diastolic blood pressure 72 mm[Hg] [facility] Work Phone: 12-02-2021 09:21-0400 Heart rate 80 /min [facility] Work Phone: 12-02-2021 09:21-0400 Respiratory rate 16 /min [facility] Work Phone: 12-02-2021 09:21-0400 SaO2% (BldA) [Mass fraction] 99 % [facility] Work Phone: 12-02-2021 09:21-0400 Systolic blood pressure 109 mm[Hg] [facility] Work Phone: 11-30-2021 07:51-0400 Body height 160.02 cm [facility] Work Phone: 11-30-2021 07:51-0400 Body mass index (BMI) [Ratio] 28.9 kg/m2 [facility] Work Phone: 11-30-2021 07:51-0400 Body weight 74 kg [facility] Work Phone: Encounters Encounter Date Encounter Type Care Provider Facility Start: 09-05-2024 End: 09-05-[address] Lluvia Shah DO -[facility] Work Phone: Start: 09-05-2024 End: 09-05-[address] Paris Lee MD Work Phone: [facility] Work Phone: Start: 07-19-2024 ambulatory Lluvia Frias cility:[facility] Start: 07-16-2024 Non-patient / Non-visit Kate Osuna ms CNM -[facility] Start: 07-15-2024 Non-patient / Non-visit Dr. Black Shah DO -[facility] Start: 07-15-2024 ambulatory Paris Lee Facility: [facility] Start: 07-15-2024 End: 07-16-2024 Evaluation and management of inpatient Dr. Lluvia Shah DO -[facility] Work Phone: Start: 07-12-2024 End: 07-12-2024 Patient encounter procedure Kyaviky Go [facility] -[facility] Work Phone: Start: 07-12-2024 End: 07-12-2024 ambulatory Kya Go Facility:[facility] Start: 07-05-2024 End: 07-05-2024 Patient encounter procedure Kate Jeremy [facility] -[facility] Work Phone: Start: 07-05-2024 End: 07-05-2024 ambulatory Paris Miedvish Facility:[facility] Start: 06-28-2024 End: 06-28-[address] Paris Lee MD Work Phone: [facility] Work Phone: Start: 06-28-2024 End: 06-28-[address] Lluvia Shah DO -Laboratory, Specimen Work Phone: Start: 06-28-2024 End: 06-28-[address] Lluvia Shah DO -[facility] Work Phone: Start: 06-28-2024 End: 06-28-2024 ambulatory Paris Lee Facility:[facility] Start: 06-28-2024 End: 06-28-2024 ambulatory Lluvia Shah Facility:[facility] Start: 06-24-2024 End: 06-24-[address] Lluvia Shah DO -Ultrasound, [facility] Work Phone: Start: 06-24-2024 End: 06-24-[address] Paris Lee MD Work Phone: [facility] Work Phone: Start: 06-14-2024 End: 06-14-[address] Lluvia Shah DO -[facility] Work Phone: Start: 06-14-2024 End: 06-14-2024 ambulatory Paris Rosa Facility:[facility] Start: 05-31-2024 End: 05-31-2024 Patient encounter procedure Kya Go [facility] -[facility] Work Phone: Start: 05-31-2024 End: 05-31-2024 ambulatory Kyaronald Go Facility:[facility] Start: 05-23-2024 Encounter for genera l adult medical examination without abnormal findings Lluvia Shah [facility] Start: 05-13-2024 End: 05-13-[address] Lluvia Shah DO -[facility] Work Phone: Start: 05-13-2024 End: 05-13-[address] Paris Lee MD Work Phone: [facility] Work Phone: Start: 05-13-2024 End: 05-13-2024 ambulatory Lluvia Shah Facility:[facility] Start: 04-26-2024 End: 04-26-[address] Rosalind Oconnor MD -[facility] Work Phone: Start: 04-26-2024 End: 04-26-2024 ambulatory Paris Mirena Facility:[facility] Start: 04-26-2024 End: 04-26-2024 ambulatory [facility] Facility:[facility] Start: 2024 End: 2024 Patient encounter procedure Kate Luna [facility] -[facility] Work Phone: Start: 2024 End: 2024 ambulatory Paris Lee Facility:[facility] Start: 03-19-2024 End: 03-19-2024 ambulatory LLUVIA BARGER [facility] Start: 02-27-2024 End: 02-27-2024 Patient encounter procedure Izzy Breanamaldonado KIRBY -[facility] Work Phone: Start: 02-27-2024 End: [facility] Start: 02-27-2024 End: 02-27-2024 [facility] Start: 01-24-2024 End: 01-24-[address] Lluvia Shah DO [facility] Work Phone: Start: 01-24-2024 End: 01-24-[facility] Start: 12-22-2023 End: 12-22-2023 ambulatory [facility] Facility:[facility] Start: 12-22-2023 End: 12-22-2023 ambulatory [facility] Facility:[facility] Start: 07-17-2023 Telephone encounter Letty Mahoney MD Work Phone: OB/Gynecology Comment on above: Medication Clarifica tion Start: 07-14-2023 End: 07-14-2023 ambulatory LETTY MAHONEY Facility:[facility] Start: 07-14-2023 End: 07-14-2023 Patient encounter procedure Letty Mahoney MD Work Phone: OB/Gynecology Comment on above: Encounter for gyneco logical examination (general) (routine) without abnormal findings (Primary Dx) Start: 07-14-2023 End: 07-14-2023 Patient encounter status Letty Mahoney MD Work Phone: [facility] Start: 06-23-2023 End: 06-23-2023 ambulatory [facility] Work Phone: Start: 06-23-2023 End: 06-23-2023 Patient encounter procedure [facility] Start: 06-20-2023 End: 06-20-2023 ambulatory [facility] Work Phone: Start: 06-20-2023 End: 06-20-2023 [facility] Start: 01-16-2023 End: 01-16-2023 ambulatory [facility] Work Phone: Start: 01-16-2023 End: 01-16-2023 [facility] Work [facility] Start: 11-16-2022 Telephone encounter Letty Mahoney MD Work Phone: OB/Gynecology Comment on above: Received Outside Med ical Records Start: 10-17-2022 End: 10-17-2022 [facility] Start: 07-19-2022 End: 07-19-2022 ambulatory [facility] Work Phone: Start: 07-19-2022 End: 07-19-2022 [facility] Start: 07-12-2022 End: 07-12-2022 [facility] [place] [facility] Start: 11-30-2021 End: 12-02-2021 Evaluation and management of inpatient [facility] Start: 11-02-2021 End: 11-02-2021 [facility] Start: 08-09-2021 End: 08-09-2021 [facility] [place] [facility] [employer] [facility] Start: 07-15-2021 End: 07-15-2021 [facility] Start: 06-07-2021 End: 06-07-2021 [facility] [place] [facility] Start: 04-05-2021 End: 04-05-2021 [facility] [place] [facility] Start: 03-19-2017 End: 03-19-2017 Emergency department patient visit None PCP Facility:[facility] Procedures Date Procedure Procedure Detail Performing Clinician Start: 07-15-2024 Serologic test for syphilis Dr. Paris Lee MD Work Phone: Start: 06-28-2024 Beta-hemolytic Streptococcus culture Dr. Paris Lee MD Work Phone: Start: 06-24-2024 Ultrasound scan for growth Dr. Paris Lee MD Work Phone: Start: 01-16-2023 Urine culture Start: 07-15-2021 Urine culture Start: 04-05-2021 Urine culture Group B Streptococcu s Culture Urine culture Plan of Treatment Date Care Activity Detail Author Start: 09-30-2031 Urine microalbumin profile DTa P,Tdap,Td Vaccine (2 - Td or Tdap) [facility] Start: 07-20-2025 Screening for malign ant neoplasm of cervix Pap Testing [facility] Start: 07-26-2024 End: 07-26-2024 Patient encounter procedure 07/26/2024 9:00 AM EDT Office Visit OB/Gynecology [address] [place] [address] Letty Mahoney MD [address] [place], [place] [id number] Annual OB/Gynecology Comment on above: Annual Start: 07-16-2024 Patient discharge [facility] Start: 07-15-2024 Documentation procedure [facility] Start: 07-15-2024 Administration of medication [facility] Start: 07-15-2024 Application of ice c ollar, cap or bag [facility] Start: 07-15-2024 Catheterization of vein [facility] Start: 07-15-2024 Introduction of urin ayana catheter [facility] Start: 07-15-2024 Measuring intake and output [facility] Start: 07-15-2024 Notification of physician [facility] Start: 07-15-2024 Procedure discontinued [facility] Start: 07-15-2024 Provision of activit y privileges [facility] Start: 07-15-2024 Vital signs measurements [facility] Start: 07-15-2024 End: 07-15-2024 [facility] Start: 07-15-2024 Admission procedure [facility] Start: 11-19-2023 Influenza vaccination Influenz a Vaccine (Season Ended) [facility] Start: 03-20-2023 Behavioral Health Screening Behavioral Health Screening [facility] Start: 11-18-2022 Covid-19 Vaccine ( season) Covid-19 Vaccine ( season) [facility] Start: 11-18-2022 Influenza vaccination INFLUENZA (#1) [facility] Start: 03-20-2022 DEPRESSION ASSESSMENT DEPRESSION ASS ESSMENT [facility] Start: 12-02-2021 Patient discharge [facility] Work Phone: Start: 12-01-2021 Administration of medication [facility] Work Phone: Start: 12-01-2021 Application of ice c ollar, cap or bag [facility] Work Phone: Start: 12-01-2021 Catheterization of vein [facility] Work Phone: Start: 12-01-2021 Introduction of urin ayana catheter [facility] Work Phone: Start: 12-01-2021 Measuring intake and output [facility] Work Phone: Start: 12-01-2021 Notification of physician [facility] Work Phone: Start: 12-01-2021 Procedure discontinued [facility] Work Phone: Start: 12-01-2021 Provision of activit y privileges [facility] Work Phone: Start: 12-01-2021 Vital signs measurements [facility] Work Phone: Start: 12-01-2021 [facility] Work Phone: Start: 11-30-2021 Admission procedure [facility] Work Phone: Start: 11-30-2021 Anesthesia consultation [facility] Work Phone: Start: 2015 PAP TESTING PAP TESTING [facility] Start: 2013 Hepatitis B Vaccine (1 of 3 - 19+ 3-dose series) Hepatitis B Vaccine (1 of 3 - 19+ 3-dose series) [facility] Start: 2013 Urine microalbumin profile DTA P,TDAP,TD (1 - Tdap) [facility] Start: 2012 HEPATITIS C SCREENING HEPATITIS C [facility] Start: 2012 Hepatitis C screening Hepatitis C [facility] Start: 2012 HIV SCREENING HIV SCREENING [facility] Start: 2012 HIV screening HIV Screening [facility] Start: 1994 COVID-19 VACCINE (#1) COVID-19 VACCI NE (#1) [facility] Start: 1994 HEPATITIS B (1 of 3 - 3-dose series) HEPATITIS B (1 of 3 - 3-dose series) [facility] Cyclic citrullinated peptide IgG Ab [Units/volume] in Serum or Plasma [facility] Nuclear Ab [Presence ] in Serum [facility] Patient Education [facility] Work Phone: Patient referral [facility] Work Phone: T4 free measurement [facility] Thyroglobulin antibo dy measurement [facility] Thyroid stimulating hormone measurement [facility] Thyroperoxidase Ab [Units/volume] in Serum or Plasma [facility] Immunizations Immunization Date Immunization Notes Care Provider Rodger tejada 04-26-2024 tetanus toxoid, redu martha diphtheria toxoid, and acellular pertussis vaccine, adsorbed Dr. Paris Lee MD Work Phone: [facility] 09-29-2021 tetanus toxoid, redu martha diphtheria toxoid, and acellular pertussis vaccine, adsorbed [facility] Payers Date Payer Category Payer Self-pay [id number] 2022 Unknown [id number] 2022 Unknown MMO MMO SUPERMED PPO [id number] 2022-Present [phone] [address] [place] [address] PPO [id number] 1994 Unknown [id number] 2.16.840.1.581953.3.579.2. 479 1994 Unknown [id number] 2.16.840.1.694886.3.579.2. 479 Blue Cross Blue Shield [id number] Unknown [id number] 2.16.840.1.038956.3.579.2. 462 Unknown [id number] 2.16.840.1.848409.3.579.2. 462 Unknown [id number] 2.16.840.1.384390.3.579.2. 462 Unknown [id number] 2.16.840.1.359950.3.579.2. 462 Unknown [id number] 2.16.840.1.668953.3.579.2. 462 Unknown [id number] 2.16.840.1.485993.3.579.2. 462 Unknown [id number] 2.16.840.1.673855.3.579.2. 462 Unknown [id number] 2.16.840.1.688914.3.579.2. 462 Unknown [id number] 2.16.840.1.679607.3.579.2. 462 Unknown [id number] 2.16.840.1.322461.3.579.2. 462 Unknown [id number] 2.16.840.1.739839.3.579.2. 462 Unknown [id number] 2.16.840.1.116494.3.579.2. 462 Unknown [id number] 2.16.840.1.520322.3.579.2. 462 Unknown [id number] 2.16.840.1.626511.3.579.2. 462 Unknown [id number] 2.16.840.1.300747.3.579.2. 462 Unknown [id number] 2.16.840.1.019909.3.579.2. 462 Unknown [id number] 2.16.840.1.005918.3.579.2. 462 Unknown [id number] 2.16840.1.206141.3.579.2. 462 Unknown [id number] 2.16.840.1.309974.3.579.2. 462 Unknown [id number] 2.16.840.1.198006.3.579.2. 462 Unknown [id number] 2.16840.1.668984.3.579.2. 462 Unknown [id number] 2.840.1.968831.3.579.2. 462 Social History Date Type Detail Facility Start: 12-13-2020 End: 11-30-2021 Tobacco smoking status KSIS Unknown if ever smoked [facility] Start: 1995 Sex Assigned At Female [facility] Start: 1995 Sex Assigned At Not on file [facility] Start: 07-14-2023 Gender identity Not on file [facility] Start: 07-14-2023 End: 09-05-2024 Tobacco smoking status NHIS Never smoked tobacco [facility] Start: 07-14-2023 Tobacco use and exposure Smokeless tobacco non-user [facility] Start: 07-14-2023 Alcohol intake Ex-drinker (finding) [facility] Start: 07-14-2023 History of Social function [facility] National Score (1-100), lower number is lower risk 47 [facility] Start: 05-23-2024 End: 07-16-2024 Sex Female (finding) [facility] Goals Date Patient Goal Desired Activity /State Clinical Notes 07-12-2022 to 07-16-2024 Note Date & Type Note Facility 07-16-2024 Progress note Note Date/Time July 16, 2024 7:34am [facility] Medical Records Department [address] [place] [address] Progress Note - OBGYN 07/16/24 0733 MR#: [id number] Acct: [id number] Name: KAUSHAL RODRIGUEZ Rep #:[id number] 2 : 1995 29 From: Kate Luna CNM PCP: Dr. Paris Lee MD Status:ADM IN [id number] Subjective Subjective Patient doing well without complaints. Tolerating PO. Ambulating and voiding without difficulty. Feeding well. Denies chest pain, shortness of breath, calf pain/swelling, fevers, chills, lightheadedness. Objective Data Objective Data Vital Signs: Vital Signs Temp Pulse Resp BP Pulse Ox O2 Del Method 98.0 F 90 18 119/62 98 Room Air 07/16/24 05:21 07/16/24 05:21 07/16/24 05:21 07/16/24 05:21 07/16/24 05:21 07/16/24 05:21 Oxygen Delivery Method Room Air Weight: 148 lb Body Mass Index (BMI) 26.2 Intake & Output: Intake and Output for Last 24 Hours 07/14/24 07/15/24 07/16/24 23:59 23:59 23:59 Intake Total 1265.83 / 1265.83 Output Total 1000 / 1000 900 / 900 Balance 265.83 / 265.83 -900 / -900 Lab / Micro Data Attestation: I reviewed the patient's lab results. 07/15/24 18:00 Labs: Laboratory Results - last 24 hr 07/15/24 18:00: WBC 9.8, RBC 4.77, Hgb 13.6, Hct 40.7, MCV 85.3, MCH 28.5, MCHC 33.4, RDW Std Deviation 43.9, RDW Coeff of Lizet 14.2, Plt Count 219, MPV 10.6, Immature Gran % (Auto) 0.900, Neut % (Auto) 72.9 H, Lymph % (Auto) 18.7 L, Storey % (Auto) 6.4, Eos % (Auto) 0.6, Baso % (Auto) 0.5, Absolute Neuts (auto) 7.1, Absolute Lymphs (auto) 1.83, Nucleated RBC % 0, Syphilis Total Ab Nonreactive, Blood Type A POSITIVE, Antibody Screen NEGATIVE ROS Constitutional Constitutional: Reports systems reviewed and no addt'l complaints, except as documented; Denies anorexia or headache(s) Cardiovascular Cardiovascular: Reports systems reviewed and no addt'l complaints, except as documented; Denies dizziness, dyspnea, nausea or tachypnea Respiratory/Chest Respiratory/Chest: Reports systems reviewed and no addt'l complaints, except as documented; Denies cough, dyspnea, shortness of breath at rest or tachypnea Gastrointestinal Gastrointestinal: Reports systems reviewed and no addt'l complaints, except as documented; Denies abdominal pain, constipation or nausea Genitourinary Genitourinary: Reports systems reviewed and no addt'l complaints, except as documented; Denies burning urination, difficulty urinating, dysuria, urinary frequency or urinary incontinence Musculoskeletal Musculoskeletal: Reports systems reviewed and no addt'l complaints, except as documented Integumentary Integumentary: Reports systems reviewed and no addt'l complaints, except as documented Neurologic Neurologic: Reports systems reviewed and no addt'l complaints, except as documented; Denies abnormal speech, dizziness or headache(s) Psychiatric Psychiatric: Reports systems reviewed and no addt'l complaints, except as documented Endocrine Endocrinology: Reports systems reviewed and no addt'l complaints, except as documented Hematologic/Lymphatic Hematologic/Lymphatic: Reports systems reviewed and no addt'l complaints, exceptas documented Physical Exam Const alert, oriented x3 and no apparent distress Neck full ROM Resp normal respiratory effort, normal air movement and no retractions Effort and Inspection: able to speak in complete sentences and symmetric chest movement GI soft to palpation Bladder / Kidney Exam: bladder normal to palpation Uterus Palpation: uterus fundus firm Extremity normal to inspection and full ROM Psych mental status grossly normal, thought process normal and cooperative Assessment & Plan (1) Vaginal delivery: COMMENT: JV PLAN: s/p PPD # 1 1. routine post delivery care 2. breast feeding- support given 3. rh positive 4. rubella immune 5. Discharge home (2) Active labor at term: (3) Frequent UTI: (4) : QUALIFIERS: Weeks of gestation: 38 weeks Qualified Code(s): Z3A.38 - 38 weeks gestation of COMMENT: normal anatomy. genetic & carrier testing- declined. (5) Supervision of high-risk : QUALIFIERS: Trimester: second trimester Qualified Code(s): O09.92- Supervision of high risk , unspecified, second trimester COMMENT: [id number], ROLAND 07/20/24, doron MOORE Rishabh, Jaxon (6) FH: hypothyroidism: COMMENT: Mother, Maternal Aunt & Grandmother (7) Gluten free diet: COMMENT: for joint pain not celiac (8) Borderline hypothyroidism: COMMENT: not on medication (9) COVID-19 affecting in first trimester: COMMENT: October, asa 81 mg Charges/Coding Multi Select Codes Urinary/Genital Urinary/Genital CPT Codes: No Charge 07/16/24 0734 <Electronically signed by Kate Luna CNM> Cosigner Signature (if applicable): CC: ~ Signed [facility] Work Phone: 1(667) 707-805204-29-2025 Discharge summary Author Lluvia Caro [facility] Note Date/Time July 16, 2024 7:0 4am [facility] Medical Records Department [address] [place] [address] Instructions for Home/Discharge Instructions 07/16/24 0704 MR#: [id number] Acct: [id number] Name: KAUSHAL RODRIGUEZ Rep #:[id number] 1 : 1995 29 From: Lluvia Shah DO PCP: Dr. Paris Lee MD Status:ADM IN Discharge Instructions Diet Discharge Diet: No restrictions DC O2, CPAP, BIPAP needs Home O2 Discharge instructions: No Dressing / Incision Discharge Activity: Return to Normal Activity, May Not Drive (while taking narcotic pain medications.) and May Shower May resume sexual activity in: 4-6 weeks Dressing / Incision Call your doctor if your incision/area has: Continuous Slow Oozing, Sudden Increased Bleeding, Increased Pain/ Swelling, Increased Redness and Foul Smelling Discharge Follow Up Care Please Follow Up With: Lluvia Shah DO When: Call [phone] to make an appointment with your doctor in 6 weeks. If you had elevated blood pressure or 4th degree laceration, you will need to be seen in 2 weeks. Test Results: Test results from this visit will be discussed in further detail at your follow- up appointment, if applicable. Discharge Plan Admission Admit Date/Time: 07/15/24 17:45 Attending Provider: Lluvia Shah Primary Care Provider: Paris Lee Discharge Orders/Prescriptions Prescriptions: No Action PNV-Ridott 28-1-300 mg capsule PO pyridoxine (vitamin B6) 25 mg tablet 12.5 mg PO QDAY Unisom (doxylamine) 25 mg tablet 12.5 mg PO QHS PRN (Reason: sleep) cephalexin 250 mg capsule 250 mg PO ONCE Qty: 20 12RF Rx Instructions: use x1 after intercourse. Referrals / Follow Up: Paris Lee MD [Primary Care Provider] - 07/16/24 0704<Electronically signed by Lluvia Shah DO>Lluvia Shah DO CC: Dr. Paris Lee MD ~ Signed [facility] Work Phone: 1(653) 824-441804-29-2025 Progress note [facility] Medical Records Department [address] [place] [id number] Progress Note - OBGYN 07/16/24 0733 MR#: [id number] Acct: [id number] Name: KAUSHAL RODRIGUEZ Rep #:[id number] 2 : 1995 29 From: Kate Luna CNM PCP: Dr. Paris Lee MD Status:ADM IN Location: [place] [address] Subjective Subjective Patient doing well without complaints. Tolerating PO. Ambulating and voiding without difficulty. Feeding well. Denies chest pain, shortness of breath, calf pain/swelling, fevers, chills, lightheadedness. Objective Data Objective Data Vital Signs: Vital Signs Temp Pulse Resp BP Pulse Ox O2 Del Method 98.0 F 90 18 119/62 98 Room Air 07/16/24 05:21 07/16/24 05:21 07/16/24 05:21 07/16/24 05:21 07/16/24 05:21 07/16/24 05:21 Oxygen Delivery Method Room Air Weight: 148 lb Body Mass Index (BMI) 26.2 Intake & Output: Intake and Output for Last 24 Hours 07/14/24 07/15/24 07/16/24 23:59 23:59 23:59 Intake Total 1265.83 / 1265.83 Output Total 1000 / 1000 900 / 900 Balance 265.83 / 265.83 -900 / -900 Lab / Micro Data Attestation: I reviewed the patient's lab results. 07/15/24 18:00 Labs: Laboratory Results - last 24 hr 07/15/24 18:00: WBC 9.8, RBC 4.77, Hgb 13.6, Hct 40.7, MCV 85.3, MCH 28.5, MCHC 33.4, RDW Std Deviation 43.9, RDW Coeff of Lizet 14.2, Plt Count 219, MPV 10.6, Immature Gran % (Auto) 0.900, Neut % (Auto) 72.9 H, Lymph % (Auto) 18.7 L, Storey % (Auto) 6.4, Eos % (Auto) 0.6, Baso % (Auto) 0.5, Absolute Neuts (auto) 7.1, Absolute Lymphs (auto) 1.83, Nucleated RBC % 0, Syphilis Total Ab Nonreactive, Blood Type A POSITIVE, Antibody Screen NEGATIVE ROS Constitutional Constitutional: Reports systems reviewed and no addt'l complaints, except as documented; Denies anorexia or headache(s) Cardiovascular Cardiovascular: Reports systems reviewed and no addt'l complaints, except as documented; Denies dizziness, dyspnea, nausea or tachypnea Respiratory/Chest Respiratory/Chest: Reports systems reviewed and no addt'l complaints, except as documented; Denies cough, dyspnea, shortness of breath at rest or tachypnea Gastrointestinal Gastrointestinal: Reports systems reviewed and no addt'l complaints, except as documented; Denies abdominal pain, constipation or nausea Genitourinary Genitourinary: Reports systems reviewed and no addt'l complaints, except as documented; Denies burning urination, difficulty urinating, dysuria, urinary frequency or urinary incontinence Musculoskeletal Musculoskeletal: Reports systems reviewed and no addt'l complaints, except as documented Integumentary Integumentary: Reports systems reviewed and no addt'l complaints, except as documented Neurologic Neurologic: Reports systems reviewed and no addt'l complaints, except as documented; Denies abnormal speech, dizziness or headache(s) Psychiatric Psychiatric: Reports systems reviewed and no addt'l complaints, except as documented Endocrine Endocrinology: Reports systems reviewed and no addt'l complaints, except as documented Hematologic/Lymphatic Hematologic/Lymphatic: Reports systems reviewed and no addt'l complaints, exceptas documented Physical Exam Const alert, oriented x3 and no apparent distress Neck full ROM Resp normal respiratory effort, normal air movement and no retractions Effort and Inspection: able to speak in complete sentences and symmetric chest movement GI soft to palpation Bladder / Kidney Exam: bladder normal to palpation Uterus Palpation: uterus fundus firm Extremity normal to inspection and full ROM Psych mental status grossly normal, thought process normal and cooperative Assessment & Plan (1) Vaginal delivery: COMMENT: JV PLAN: s/p PPD # 1 1. routine post delivery care 2. breast feeding- support given 3. rh positive 4. rubella immune 5. Discharge home (2) Active labor at term: (3) Frequent UTI: (4) : QUALIFIERS: Weeks of gestation: 38 weeks Qualified Code(s): Z3A.38 - 38 weeks gestation of COMMENT: normal anatomy. genetic & carrier testing- declined. (5) Supervision of high-risk : QUALIFIERS: Trimester: second trimester Qualified Code(s): O09.92- Supervision of high risk , unspecified, second trimester COMMENT: [id number], ROLAND 07/20/24, surprise PC Rishabh, Jaxon (6) FH: hypothyroidism: COMMENT: Mother, Maternal Aunt & Grandmother (7) Gluten free diet: COMMENT: for joint pain not celiac (8) Borderline hypothyroidism: COMMENT: not on medication (9) COVID-19 affecting in first trimester: COMMENT: October, asa 81 mg Charges/Coding Multi Select Codes Urinary/Genital Urinary/Genital CPT Codes: No Charge 07/16/24 0734 Cosigner Signature (if applicable): CC: ~ Signed [facility]04-29-2025 Discharge summary [facility] Medical Records Department [address] [place] [address] Instructions for Home/Discharge Instructions 07/16/24 0704 MR#: [id number] Acct: [id number] Name: KAUSHAL RODRIGUEZ Rep #:[id number] 1 : 1995 29 From: Lluvia Shah DO PCP: Dr. Paris Lee MD Status:ADM IN Discharge Instructions Diet Discharge Diet: No restrictions DC O2, CPAP, BIPAP needs Home O2 Discharge instructions: No Dressing / Incision Discharge Activity: Return to Normal Activity, May Not Drive (while taking narcotic pain medications.) and May Shower May resume sexual activity in: 4-6 weeks Dressing / Incision Call your doctor if your incision/area has: Continuous Slow Oozing, Sudden Increased Bleeding, Increased Pain/ Swelling, Increased Redness and Foul Smelling Discharge Follow Up Care Please Follow Up With: Lluvia Shah DO When: Call [phone] to make an appointment with your doctor in 6 weeks. If you had elevated blood pressure or 4th degree laceration, you will need to be seen in 2 weeks. Test Results: Test results from this visit will be discussed in further detail at your follow- up appointment, if applicable. Discharge Plan Admission Admit Date/Time: 07/15/24 17:45 Attending Provider: Lluvia Shah Primary Care Provider: Paris Lee Discharge Orders/Prescriptions Prescriptions: No Action PNV-Ridott 28-1-300 mg capsule PO pyridoxine (vitamin B6) 25 mg tablet 12.5 mg PO QDAY Unisom (doxylamine) 25 mg tablet 12.5 mg PO QHS PRN (Reason: sleep) cephalexin 250 mg capsule 250 mg PO ONCE Qty: 20 12RF Rx Instructions: use x1 after intercourse. Referrals / Follow Up: Paris Lee MD [Primary Care Provider] - 07/16/24 0704Jennifer Robbin Caro DO CC: Dr. Paris Lee MD ~ [facility]04-28-2025 History and physical note Author Lluvia Caro [facility] Note Date/Time July 15, 2024 7:0 0pm [facility] Medical Records Department [address] [place] [address] H&P Exam - RECRUITING SPECIALIST 07/15/24 1859 MR#: [id number] Acct: [id number] Name: KAUSHAL RODRIGUEZ Rep #:[id number] 2 : 1995 29 From: Lluvia Shah DO PCP: Dr. Paris Lee MD Status:ADM IN Location: [id number] HPI - General General Date of Admission: 07/15/24 HPI Narrative KAUSHAL RODRIGUEZ, is a 29 2 P1 @ 39 weeks 2 days who presents to L&D in active labor.She is breathing through contractions and requesting an epidural. She was 4 cm dialted an hour ago and is now 7 cm. still intact. Maternal Data Information ROLAND Calculator Estimated Delivery Date Method Current WG Current Estimate 07/20/24 LMP (Certain) 39w 2d PFSH PFSH Medical History Vaginal delivery Seasonal allergies Home Medications ?Medication ?Instructions ?Recorded ?Last Taken ?Type doxylamine succinate 25 mg tablet 12.5 mg PO QHS PRN 0 12/15/23 Unknown History (Unisom (doxylamine)) multivit-min no.71-iron fum 28 cap PO 12/15/23 Unknown History mg-folate no.1 1 mg-dha 300 mg capsule (PNV-Ridott) pyridoxine (vitamin B6) 25 mg 12.5 mg PO QDAY 12/15/23 Unknown History tablet cephalexin 250 mg capsule 250 mg PO ONCE uti preventio n #20 12/22/23 Unknown Rx caps Allergy/AdvReac Type Severity Reaction Status Date / Time sulfamethoxazole (From Allergy Severe Swelling Verified 07/12/24 14:55 Bactrim) trimethoprim (From Bactrim) Allergy Rash Verified 07/12/24 14:55 gluten AdvReac Intermediate Abd Verified 07/12/24 14:55 cramps/diarrhea Family History Mother Thyroid disorder hypothyroidism Aunt Thyroid disorder Maternal Hypothyroid Grandmother Thyroid disorder Maternal hypothyroid Surgical History History of surgery Social History adopted: No household members: spouse and children number of children: 1 current occupational status: employed current occupation: [employer] current occupational exposures/hazards: No pets and animals: Yes pets and animals: dog(s) history of recent travel: No sexually active: Yes Smoking Status: Never smoker alcohol intake: never substance use type: does not use diet: gluten free well-balanced diet: daily or most days caffeine: No eating out: rarely or never during the past year weight has: remained stable what type of physical activity do you participate in: walking frequency: 3-4 times per week duration: 15-30 minutes/day polly/mu-ism: Mu-Ism seatbelt use: always do you feel safe at home: Yes 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 Date Name GA/Weeks Outcome Route Bth Weight Gen Labor Lgth Anes thesi a Del Locatn Provider FOB 12/01/21 Rishabh 41 live - full term 7#1oz Female epi dural [facility] Judith Coates Delivery Date: 12/01/21 Last Updated by: Elma Mai IOL post dates Visit Details Expected Delivery Route/Plan Labor Preferences- CB/BF classes: [] labor support person: [] labor intervention preferences: [] pain management options preferred: [] cut cord/dad catch: [] : [] PP control planned: [] discussed possible routes of delivery and associated risks: [] special requests: [] Plans Covid status: [] Flu vaccine: [] Tdap vaccine: given Rhogam: na LARC form signed: [] movement and labor precautions reviewed. Problem list reviewed and updated with the most current plan of care details and appropriate orders placed. Relevant counseling for the gestational age provided. Continue routine care and follow up unless otherwise noted in visit notes/problem list details OB Flowsheet Initial Weight: 122 lb Date -?-?-?-?-?-?-?-?-?-?-?-?- EGA Weight BP Urine Prot -?-?-?-?-?-?-?-?-?-?-?-?- Glucose FHR FuHt Pres Dilation -?-?-?-?-?-?-?-?-?-?-?-?- Effaced St Visit Note 12/22/23 -?-?-?-?-?-?-?-?-?-?-?-?- 9w 6d 122 lb (+0 oz) 116/79 -?-?-?-?-?-?--?-?-?-?-?-?- 158 -?-?-?-?-?-?-?-?-?-?-?-?- LC-3.78cm on wit h LMP. 01/24/24 -?-?-?-?-?-?-?-?-?-?-?-?- 14w 4d 127 lb 6 oz (+5 lb 6 oz) 108/72 Negative -?-?-?-?-?-?-?-?-?-?-?-?- Negative 150 -?-?-?-?-?-?-?-?-?-?-?-?- JV- no complaint s today. pt reassured with bedside ultrasound 02/27/24 -?-?-?-?-?-?-?-?-?-?-?-?- 19w 3d 132 lb 4 oz (+10 lb 4 oz) 104/62 Negative -?-?-?-?-?-?-?-?-?-?-?-?- Negative 147 -?-?-?-?-?-?-?-?-?-?-?-?- MH-No VB. Akil F M. Nausea improved. Anatomy US MFM today 03/29/24 -?-?-?-?-?-?-?-?-?-?-?-?- 23w 6d 139 lb (+17 lb) 100/64 -?-?-?-?-?-?-?-?-?-?-?-?- 150 24 -?-?-?-?-?-?-?-?-?-?-?-?- KW- no vb/lof/ct x. good fm. 28 week labs discussed. spouses FMLA papers to triage. 04/26/24 -?-?-?-?-?-?-?-?-?-?-?-?- 27w 6d 145 lb 2 oz (+23 lb 2 oz) 115/67 Negative -?-?-?-?-?-?-?-?-?-?-?-?- Negative 140 28 -?-?-?-?-?-?-?-?-?-?-?-?- SM- no vb lof go odf m no reuglar ctx tdap today 05/13/24 -?-?-?-?-?-?-?-?-?-?-?-?- 30w 2d 148 lb 4 oz (+26 lb 4 oz) 111/71 Negative -?-?-?-?-?-?-?-?-?-?-?-?- Negative 143 30 -?-?-?-?-?-?-?-?-?-?-?-?- JV_ no complaint s today. planning 36 week growth scan and rpt tsh today. 05/31/24 -?-?-?-?-?-?-?-?-?-?-?-?- 32w 6d 142 lb 2 oz (+20 lb 2 oz) 98/65 Negative -?-?-?-?-?-?-?-?-?-?-?-?- Negative 135 33 -?-?-?-?-?-?-?-?-?-?-?-?- LC- no vb/ctx/lo f. good fm. no concerns today LC- no vb/ctx/lof. good fm. normal tsh. 06/14/24 -?-?-?-?-?-?-?-?-?-?-?-?- 34w 6d 147 lb 6 oz (+25 lb 6 oz) 116/76 Negative -?-?-?-?-?-?-?-?-?-?-?-?- Negative 135 33.5 -?-?-?-?-?-?-?-?-?-?-?-?- JV-no lof, vagin al bleeding, or dec fm. no complaints today. 06/28/24 -?-?-?-?-?-?-?-?-?-?-?-?- 36w 6d 151 lb (+29 lb) 107/71 Negative -?-?-?-?-?-?-?-?-?-?-?-?- Negative 143 35 Cephalic 1 -?-?-?-?-?-?-?-?-?-?-?-?- 70 -1 JV- no lof , vaginal bleeding, or dec fm. questions about measles today. FOB wants to be tested for immunity. 07/05/24 -?-?-?-?-?-?-?-?-?-?-?-?- 37w 6d 151 lb (+29 lb) 116/79 Negative -?-?-?-?-?-?-?-?-?-?-?-?- Negative 125 36 Cephalic 2 .5 -?-?-?-?-?-?-?-?-?-?-?-?- 70 -1 KW- no vb/ lof/reg ctx. good fm. labor precautions. 07/12/24 -?-?-?-?-?-?-?-?-?-?-?-?- 38w 6d 148 lb 6 oz (+26 lb 6 oz) 115/69 Negative -?-?-?-?-?-?-?-?-?-?-?-?- Negative 130 38 Cephalic 2 .5 -?-?-?-?-?-?-?-?-?-?-?-?- 70 -1 LC- no vb/ reg ctx/lof. good fm. ROS Constitutional Constitutional: Denies change in weight, fatigue, fever(s), headache(s), poor appetite or weakness Eyes Eyes: Denies blurry vision, change in vision, seeing flashes or spots in vision ENT HEENT: Denies dizziness, headache(s), loss taste/smell or sore throat Cardiovascular Cardiovascular: Denies chest pain, dizziness, dyspnea, irregular heart rhythm, leg edema, palpitations, rapid heart rate or vomiting Respiratory/Chest Respiratory/Chest: Denies chest tightness, cough, dyspnea or breast pain Gastrointestinal Gastrointestinal: Denies abdominal pain, anorexia, constipation, cramping, diarrhea, hemorrhoids, vomiting or weight changes Genitourinary Genitourinary: Denies dysuria, flank pain, genital lesions, genital pain, urinary frequency or urinary urgency Musculoskeletal Musculoskeletal: Denies back pain, difficulty walking, joint pain, limited range of motion, muscle cramps or numbness Integumentary Integumentary: Denies lesions or unusual bruising Neurologic Neurologic: Denies abnormal movements, abnormal speech, dizziness, numbness, seizure-like activity or syncope Psychiatric Psychiatric: Denies anxiety, behavioral changes, change in appetite, change in libido, cognitive impairment, confusion, depression, difficulty concentrating, hallucinations or suicidal thoughts Endocrine Endocrinology: Denies excessive sweating, polydipsia or polyuria Hematologic/Lymphatic Hematologic/Lymphatic: Denies easy bleeding, easy bruising or lymphadenopathy Allergic/Immunologic Allergic/Immunologic: Denies itchy eyes, lip swelling, seasonal rhinorrhea, rhinitis, throat swelling, tongue swelling, eczemia, wheezing or asthma Vital Signs Vital Signs Vital Signs: 07/15/24 17:29 07/15/24 17:29 07/15/24 17:29 Temperature Temperature Source Temporal Pulse Rate 87 Respiratory Rate Blood Pressure 115/69 BP Systolic 115 BP Diastolic 69 07/15/24 17:29 07/15/24 17:29 Temperature 97.9 F Temperature Source Pulse Rate Respiratory Rate 16 Blood Pressure BP Systolic BP Diastolic Weight Weight: 148 lb Body Mass Index (BMI) 26.2 Physical Exam Const alert, oriented x3, no apparent distress and healthy appearing General Appearance: cooperative; Negative for anxious HEENT normocephalic Face and Sinus: normal facial exam Eyes EOMs intact bilaterally and no scleral icterus General Eye: normal appearance of both eyes Neck full ROM and supple Lymph Lymphatic: no lymphadenopathy noted Chest Chest: abnormal inspection of the chest Resp normal respiratory effort Effort and Inspection: able to speak in complete sentences Cardio regular rate GI soft to palpation and non-tender Inspection: gravid Palpation: soft; Negative for tender external exam normal Back/Spine no CVA tenderness Extremity normal to inspection, full ROM and no clubbing, cyanosis or edema General Extremity: Negative for calf tenderness or edema Skin Lesions: no lesions Rashes: no rashes Psych mental status grossly normal Labs Labs Labs: 2 Blood Type A POSITIVE Antibody Screen NEGATIVE Hct 40.7 % (37-47) Hgb 13.6 g/dL (12.0-15.0) Obstetrics Ultrasound Syphilis Total Ab Non-reactive Rubella IgG Antibody Reactive (Nonreactive) Hep Bs Antigen Non-Reactive (Nonreactive) Hepatitis C Antibody Non-Reactive (Nonreactive) Chlamydia DNA (MISSY) Negative (Negative) N.gonorrhoeae DNA (MISSY) Negative (Negative) HIV 1&2 Antibody Non-Reactive (Nonreactive) Glucose 1 Hr 50 gm 71 mg/dL (70-140) Miscellaneous Test Assessment & Plan (1) Frequent UTI: (2) Supervision of high-risk : QUALIFIERS: Trimester: second trimester Qualified Code(s): O09.92 - Supervision of high risk , unspecified, second trimester COMMENT: [id number], ROLAND 07/20/24, doron Keating, Jaxon (3) : QUALIFIERS: Weeks of gestation: 38 weeks Qualified Code(s): Z3A.38 - 38 weeks gestation of COMMENT: normal anatomy. genetic & carrier testing- declined. (4) FH: hypothyroidism: COMMENT: Mother, Maternal Aunt & Grandmother (5) Gluten free diet: COMMENT: for joint pain not celiac (6) Borderline hypothyroidism: COMMENT: not on medication (7) COVID-19 affecting in first trimester: COMMENT: October, asa 81 mg (8) Active labor at term: 07/15/24 1900 <Electronically signed by Lluvia Shah DO> Cosigner Signature (if applicable): CC: Dr. Paris Lee MD; Dr. Lluvia Shah DO~ Signed [facility] Work Phone: [phone] 308-505804-28-2025 Procedure note [facility] Medical Records Department [address] [place] [address] OB Vaginal Delivery 07/15/241944 MR#: [id number] Acct: [id number] Name: KAUSHAL RODRIGUEZ Rep #:[id number] : 1995 29 From: Lluvia Shah DO PCP: Dr. Paris Lee MD Status:ADM IN Location: [place] [id number] Assessment & Plan (1) Active labor at term: (2) Supervision of high-risk : QUALIFIERS: Trimester: second trimester Qualified Code(s): O09.92- Supervision of high risk , unspecified, second trimester COMMENT: [id number], ROLAND 07/20/24, doron Keating, Jaxon (3) : QUALIFIERS: Weeks of gestation: 38 weeks Qualified Code(s): Z3A.38 - 38 weeks gestation of COMMENT: normal anatomy. genetic & carrier testing- declined. (4) Gluten free diet: COMMENT: for joint pain not celiac (5) Borderline hypothyroidism: COMMENT: not on medication (6) COVID-19 affecting in first trimester: COMMENT: October, asa 81 mg Maternal Data Information ROLAND Calculator Estimated Delivery Date Method Current WG Current Estimate 07/20/24 LMP (Certain) 39w 2d Final ROLAND: 07/20/24 Gestational age: 39 weeks 2 days Vaginal Delivery Maternal Presentation Maternal Presentation: Active Labor Type of Induction: Amniotomy Vaginal Delivery Information Procedure Performed: Spontaneous Vaginal Delivery Surgeon/Practitioner: Lluvia Shah Date of Procedure: 07/15/24 Pre-Procedure Diagnosis: active labor, @ 39 weeks 2 days Post-Procedure Diagnosis: active labor, @ 39 weeks 2 days Type of anesthesia: None Estimated Blood Loss: 200cc Time of Delivery: 19:18 Findings Description of procedure: Patient began pushing and delivered the head in the CARMEN presentation. The head was delivered atraumatically. The anterior and posterior shoulders delivered without complication followed by the rest of the and the was placed on the maternal abdomen. Delayed cord clamping was employed for approximately 60 seconds. Cord was clamped and cut and gentle traction was applied to the cord and the placenta delivered spontaneously immediately following it was noted to be intact with three-vessel cord. The perineum and vagina were inspected and noted to have a right labial laceration. This was repaired using a 3-0 vicryl rapide EBL was [100 cc]. Patient and infant tolerated delivery well. Procedure findings: viable male infant. 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 07/15/241951 Cosigner Signature (if applicable): CC: Dr. Paris Lee MD; Dr. Lluvia Shah DO~ Signed [facility]04-28-2025 History and physical note [facility] Medical Records Department [address] [place] [address] H&P Exam - RECRUITING SPECIALIST 07/15/24 1859 MR#: [id number] Acct: [id number] Name: KAUSHAL RODRIGUEZ Rep #:[id number] : 1995 29 From: Lluvia Shah DO PCP: Dr. Paris Lee MD Status:ADM IN Location: [id number] HPI - General General Date of Admission: 07/15/24 HPI Narrative KAUSHAL RODRIGUEZ, is a 29 2 P1 @ 39 weeks 2 days who presents to L&D in active labor.She is breathingthrough contractions and requesting an epidural. She was 4 cm dialted an hour ago and is now 7 cm. still intact. Maternal Data Information ROLAND Calculator Estimated Delivery Date Method Current WG Current Estimate 07/20/24 LMP (Certain) 39w 2d PFSH PFSH Medical History Vaginal delivery Seasonal allergies Home Medications ?Medication ?Instructions ?Recorded ?Last Taken ?Type doxylamine succinate 25 mg tablet 12.5 mg PO QHS PRN 0 12/15/23 Unknown History (Unisom (doxylamine)) multivit-min no.71-iron fum 28 cap PO 12/15/23 Unknown History mg-folate no.1 1 mg-dha 300 mg capsule (PNV-Ridott) pyridoxine (vitamin B6) 25 mg 12.5 mg PO QDAY 12/15/23 Unknown History tablet cephalexin 250 mg capsule 250 mg PO ONCE uti preventio n #20 12/22/23 Unknown Rx caps Allergy/AdvReac Type Severity Reaction Status Date / Time sulfamethoxazole (From Allergy Severe Swelling Verified 07/12/24 14:55 Bactrim) trimethoprim (From Bactrim) Allergy Rash Verified 07/12/24 14:55 gluten AdvReac Intermediate Abd Verified 07/12/24 14:55 cramps/diarrhea Family History Mother Thyroid disorder hypothyroidism Aunt Thyroid disorder Maternal Hypothyroid Grandmother Thyroid disorder Maternal hypothyroid Surgical History History of surgery Social History adopted: No household members: spouse and children number of children: 1 current occupational status: employed current occupation: [employer] current occupational exposures/hazards: No pets and animals: Yes pets and animals: dog(s) history of recent travel: No sexually active: Yes Smoking Status: Never smoker alcohol intake: never substance use type: does not use diet: gluten free well-balanced diet: daily or most days caffeine: No eating out: rarely or never during the past year weight has: remained stable what type of physical activity do you participate in: walking frequency: 3-4 times per week duration: 15-30 minutes/day polly/mu-ism: Mu-Ism seatbelt use: always do you feel safe at home: Yes 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 Date Name GA/Weeks Outcome Route Bth Weight Infant Gen Labor Lgth Anes thesi a Del Locatn Provider FOB 12/01/21 Rimazley 41 live - full term 7#1oz Female epi dural [facility] Judith Barrientos Jaxon Delivery Date: 12/01/21 Last Updated by: Elma Mai IOL post dates Visit Details Expected Delivery Route/Plan Labor Preferences- CB/BF classes: [] labor support person: [] labor intervention preferences: [] pain management options preferred: [] cut cord/dad catch: [] : [] PP control planned: [] discussed possible routes of delivery and associated risks: [] special requests: [] Plans Covid status: [] Flu vaccine: [] Tdap vaccine: given Rhogam: na LARC form signed: [] movement and labor precautions reviewed. Problem list reviewed and updated with the most current plan of care details and appropriate ordersplaced. Relevant counseling for the gestational age provided. Continue routine care and follow up unless otherwise noted in visit notes/problem list details OB Flowsheet Initial Weight: 122 lb Date -?-?-?-?-?-?-?-?-?-?-?-?- EGA Weight BP Urine Prot -?-?-?-?-?-?-?-?-?-?-?-?- Glucose FHR FuHt Pres Dilation -?-?-?-?-?-?-?-?-?-?-?-?- Effaced St Visit Note 12/22/23 -?-?-?-?-?-?-?-?-?-?-?-?- 9w 6d 122 lb (+0 oz) 116/79 -?-?-?-?-?-?--?-?-?-?-?-?- 158 -?-?-?-?-?-?-?-?-?-?-?-?- LC-3.78cm on wit h LMP. 01/24/24 -?-?-?-?-?-?-?-?-?-?-?-?- 14w 4d 127 lb 6 oz (+5 lb 6 oz) 108/72 Negative -?-?-?-?-?-?-?-?-?-?-?-?- Negative 150 -?-?-?-?-?-?-?-?-?-?-?-?- JV- no complaint s today. pt reassured with bedside ultrasound 02/27/24 -?-?-?-?-?-?-?-?-?-?-?-?- 19w 3d 132 lb 4 oz (+10 lb 4 oz) 104/62 Negative -?-?-?-?-?-?-?-?-?-?-?-?- Negative 147 -?-?-?-?-?-?-?-?-?-?-?-?- MH-No VB. Akil F M. Nausea improved. Anatomy US MFM today 03/29/24 -?-?-?-?-?-?-?-?-?-?-?-?- 23w 6d 139 lb (+17 lb) 100/64 -?-?-?-?-?-?-?-?-?-?-?-?- 150 24 -?-?-?-?-?-?-?-?-?-?-?-?- KW- no vb/lof/ct x. akil fm. 28 week labs discussed. spouses FMLA papers to triage. 04/26/24 -?-?-?-?-?-?-?-?-?-?-?-?- 27w 6d 145 lb 2 oz (+23 lb 2 oz) 115/67 Negative -?-?-?-?-?-?-?-?-?-?-?-?- Negative 140 28 -?-?-?-?-?-?-?-?-?-?-?-?- SM- no vb lof go odf m no reuglar ctx tdap today 05/13/24 -?-?-?-?-?-?-?-?-?-?-?-?- 30w 2d 148 lb 4 oz (+26 lb 4 oz) 111/71 Negative -?-?-?-?-?-?-?-?-?-?-?-?- Negative 143 30 -?-?-?-?-?-?-?-?-?-?-?-?- JV_ no complaint s today. planning 36 week growth scan and rpt tsh today. 05/31/24 -?-?-?-?-?-?-?-?-?-?-?-?- 32w 6d 142 lb 2 oz (+20 lb 2 oz) 98/65 Negative -?-?-?-?-?-?-?-?-?-?-?-?- Negative 135 33 -?-?-?-?-?-?-?-?-?-?-?-?- LC- no vb/ctx/lo f. good fm. no concerns today LC- no vb/ctx/lof. good fm. normal tsh. 06/14/24 -?-?-?-?-?-?-?-?-?-?-?-?- 34w 6d 147 lb 6 oz (+25 lb 6 oz) 116/76 Negative -?-?-?-?-?-?-?-?-?-?-?-?- Negative 135 33.5 -?-?-?-?-?-?-?-?-?-?-?-?- JV-no lof, vagin al bleeding, or dec fm. no complaints today. 06/28/24 -?-?-?-?-?-?-?-?-?-?-?-?- 36w 6d 151 lb (+29 lb) 107/71 Negative -?-?-?-?-?-?-?-?-?-?-?-?- Negative 143 35 Cephalic 1 -?-?-?-?-?-?-?-?-?-?-?-?- 70 -1 JV- no lof , vaginal bleeding, or dec fm. questions about measles today. FOB wants to be tested for immunity. 07/05/24 -?-?-?-?-?-?-?-?-?-?-?-?- 37w 6d 151 lb (+29 lb) 116/79 Negative -?-?-?-?-?-?-?-?-?-?-?-?- Negative 125 36 Cephalic 2 .5 -?-?-?-?-?-?-?-?-?-?-?-?- 70 -1 KW- no vb/ lof/reg ctx. good fm. labor precautions. 07/12/24 -?-?-?-?-?-?-?-?-?-?-?-?- 38w 6d 148 lb 6 oz (+26 lb 6 oz) 115/69 Negative -?-?-?-?-?-?-?-?-?-?-?-?- Negative 130 38 Cephalic 2 .5 -?-?-?-?-?-?-?-?-?-?-?-?- 70 -1 LC- no vb/ reg ctx/lof. good fm. ROS Constitutional Constitutional: Denies change in weight, fatigue, fever(s), headache(s), poor appetite or weakness Eyes Eyes: Denies blurry vision, change in vision, seeing flashes or spots in vision ENT HEENT: Denies dizziness, headache(s), loss taste/smell or sore throat Cardiovascular Cardiovascular: Denies chest pain, dizziness, dyspnea, irregular heart rhythm, leg edema, palpitations, rapid heart rate or vomiting Respiratory/Chest Respiratory/Chest: Denies chest tightness, cough, dyspnea or breast pain Gastrointestinal Gastrointestinal: Denies abdominal pain, anorexia, constipation, cramping, diarrhea, hemorrhoids, vomiting or weight changes Genitourinary Genitourinary: Denies dysuria, flank pain, genital lesions, genital pain, urinary frequency or urinary urgency Musculoskeletal Musculoskeletal: Denies back pain, difficulty walking, joint pain, limited range of motion, muscle cramps or numbness Integumentary Integumentary: Denies lesions or unusual bruising Neurologic Neurologic: Denies abnormal movements, abnormal speech, dizziness, numbness, seizure-like activity or syncope Psychiatric Psychiatric: Denies anxiety, behavioral changes, change in appetite, change in libido, cognitive impairment, confusion, depression, difficulty concentrating, hallucinations or suicidal thoughts Endocrine Endocrinology: Denies excessive sweating, polydipsia or polyuria Hematologic/Lymphatic Hematologic/Lymphatic: Denies easy bleeding, easy bruising or lymphadenopathy Allergic/Immunologic Allergic/Immunologic: Denies itchy eyes, lip swelling, seasonal rhinorrhea, rhinitis, throat swelling, tongue swelling, eczemia, wheezing or asthma Vital Signs Vital Signs Vital Signs: 07/15/24 17:29 07/15/24 17:29 07/15/24 17:29 Temperature Temperature Source Temporal Pulse Rate 87 Respiratory Rate Blood Pressure 115/69 BP Systolic 115 BP Diastolic 69 07/15/24 17:29 07/15/24 17:29 Temperature 97.9 F Temperature Source Pulse Rate Respiratory Rate 16 Blood Pressure BP Systolic BP Diastolic Weight Weight: 148 lb Body Mass Index (BMI) 26.2 Physical Exam Const alert, oriented x3, no apparent distress and healthy appearing General Appearance: cooperative; Negative for anxious HEENT normocephalic Face and Sinus: normal facial exam Eyes EOMs intact bilaterally and no scleral icterus General Eye: normal appearance of both eyes Neck full ROM and supple Lymph Lymphatic: no lymphadenopathy noted Chest Chest: abnormal inspection of the chest Resp normal respiratory effort Effort and Inspection: able to speak in complete sentences Cardio regular rate GI soft to palpation and non-tender Inspection: gravid Palpation: soft; Negative for tender external exam normal Back/Spine no CVA tenderness Extremity normal to inspection, full ROM and no clubbing, cyanosis or edema General Extremity: Negative for calf tenderness or edema Skin Lesions: no lesions Rashes: no rashes Psych mental status grossly normal Labs Labs Labs: 2 Blood Type A POSITIVE Antibody Screen NEGATIVE Hct 40.7 % (37-47) Hgb 13.6 g/dL (12.0-15.0) Obstetrics Ultrasound Syphilis Total Ab Non-reactive Rubella IgG Antibody Reactive (Nonreactive) Hep Bs Antigen Non-Reactive (Nonreactive) Hepatitis C Antibody Non-Reactive (Nonreactive) Chlamydia DNA (MISSY) Negative (Negative) N.gonorrhoeae DNA (MISSY) Negative (Negative) HIV 1&2 Antibody Non-Reactive (Nonreactive) Glucose 1 Hr 50 gm 71 mg/dL (70-140) Miscellaneous Test Assessment & Plan (1) Frequent UTI: (2) Supervision of high-risk : QUALIFIERS: Trimester: second trimester Qualified Code(s): O09.92 - Supervision of high risk , unspecified, second trimester COMMENT: [id number], ROLAND 07/20/24, surprise PC Rishabh, Jaxon (3) : QUALIFIERS: Weeks of gestation: 38 weeks Qualified Code(s): Z3A.38 - 38 weeks gestation of COMMENT: normal anatomy. genetic & carrier testing- declined. (4) FH: hypothyroidism: COMMENT: Mother, Maternal Aunt & Grandmother (5) Gluten free diet: COMMENT: for joint pain not celiac (6) Borderline hypothyroidism: COMMENT: not on medication (7) COVID-19 affecting in first trimester: COMMENT: October, asa 81 mg (8) Active labor at term: 07/15/24 1900 Cosigner Signature (if applicable): CC: Dr. Paris Lee MD; Dr. Lluvia Shah DO~ Signed [facility]04-09-2025 Radiology Diagnostic study note [facility] Imaging Services [address] [place] [address] OB Limited With Biometrics MR#: [id number] Acct: [id number] Name: KAUSHAL RODRIGUEZ Rep #: [id number] : 1995 F 29 From: Concepcion Hernadez MD PCP: Dr. Paris Lee MD Status: REG CLI Study:OB Limited With Biometrics Date of Exam : 06/24/24 Exam# [id number] Ordering Dr: Lluvia Anna DO PROCEDURE: OB LIMITED WITH BIOMETRICS (USOBGROWTH), 06/24/2024 REASON FOR EXAM: HISTORY OF SECOND STAGE ARREST. Reportedly, 36 weeks 2 days by previously established dates with ROLAND 07/20/2024. TECHNIQUE: Grayscale and color/spectral doppler transabdominal pelvic ultrasound was performed with attention to the uterus and associated gestation. COMPARISON: None FINDINGS: Gravid uterus with single fetus is identified. Cardiac activity: Regular, 140 bpm. position: Cephalic. Amniotic Fluid Index: 13.0 (normal 5-25), deepest vertical pocket 5.5 (normal 2-8). Placenta: Posterior. biometry: Biparietal diameter: 8.7 cm, corresponding to 35 weeks and 0 days. Head circumference: 31.0 cm, corresponding to 34 weeks and 5 days. Occipitofrontal diameter: 10.8 cm, corresponding to 34 weeks and 2 days. Abdominal circumference: 32.5 cm, corresponding to 36 weeks and 3 days. Femur length: 6.7 cm, corresponding to 34 weeks and 4 days. Composite gestational age: 34 weeks and 6 days Estimated Weight (EFW): 2,768 +/- 415 g, 39th percentile. Estimated delivery date (ROLAND): 07/30/2024 based on today's measurements. US/OB Limited With Biometrics IMPRESSION: 1. Single living intrauterine gestation at 34 weeks and 6 days based on today's measurements. Correlate with clinical factors including previously established dates. 2. Estimated weight 2,768 +/- 415 g, 39th percentile based on provided previously establisheddates. biometry as above. 3. Note that detailed anatomic survey was not performed. 4. Additional description as above. Reading Location: [id number] CC: Dr. Paris Lee MD; Dr. Lluvia Shah DO ~ Groundskeeper Porter: Signed [facility]02-24-2025 Evaluation note* Diagnosis Onset Date Resolution Status Admit Date Borderline hypothyroidism acute May 13, 2024 3:22pm COVID-19 affecting in first trimester acute April 3:22pm FH: hypothyroidism acute Februa 2024 3:22pm Frequent UTI acute April 3:22pm Gluten free diet acute May 13, 2024 3:22pm acute May 13, 2024 3:22pm Supervision of high-risk acute May 13, 2 025 3:22pm Borderline hypothyroidism acute May 31, 2024 3:46pm COVID-19 affecting in first trimester acute May 31, 2 025 3:46pm FH: hypothyroidism acute May 31, 2024 3:46pm Frequent UTI acute May 31, 2024 3:46pm Gluten free diet acute May 312024 3:46pm acute May 31 3:46pm Supervision of high-risk acute May 31, 2024 3:46pm Borderline hypothyroidism acute June 14, 2024 1:55pm COVID-19 affecting in first trimester acute June 14, 2 025 1:55pm FH: hypothyroidism acute June 14, 2024 1:55pm Frequent UTI acute June 14, 2024 1:55pm Gluten free diet acute June 142024 1:55pm acute June 14 1:55pm Supervision of high-risk acute June 14, 2024 1:55pm Borderline hypothyroidism acute June 28, 2024 3:22pm COVID-19 affecting in first trimester acute June 28, 2 025 3:22pm FH: hypothyroidism acute June 28, 2024 3:22pm Frequent UTI acute June 28, 2024 3:22pm Gluten free diet acute June 282024 3:22pm acute June 28 3:22pm Supervision of high-risk acute June 28, 2024 3:22pm Borderline hypothyroidism acute July 05, 2024 3:02pm COVID-19 affecting in first trimester acute July 05, 2 025 3:02pm FH: hypothyroidism acute July 05, 2024 3:02pm Frequent UTI acute July 05, 2024 3:02pm Gluten free diet acute July 052024 3:02pm acute July 05 3:02pm Supervision of high-risk acute July 05, 2024 3:02pm Borderline hypothyroidism acute July 12, 2024 2:45pm COVID-19 affecting in first trimester acute July 12, 2 025 2:45pm FH: hypothyroidism acute July 12, 2024 2:45pm Frequent UTI acute July 12, 2024 2:45pm Gluten free diet acute July 122024 2:45pm acute July 12 2:45pm Supervision of high-risk acute July 12, 2024 2:45pm Active labor at term acute Apri l 2024 5:45pm Borderline hypothyroidism acute July 15, 2024 5:45pm COVID-19 affecting in first trimester acute July 15, 2 025 5:45pm FH: hypothyroidism acute July 15, 2024 5:45pm Frequent UTI acute July 15, 2024 5:45pm Gluten free diet acute July 152024 5:45pm acute July 15 5:45pm Supervision of high-risk acute July 15, 2024 5:45pm Vaginal delivery acute July 152024 5:45pm Routine Follow-Up noneact boogie September 05, 2024 2:21pm [facility] Work Phone: 1(484) 937-929601-10-2025 Evaluation note* Diagnosis Onset Date Resolution Status Admit Date Borderline hypothyroidism acute 2024 3:02pm COVID-19 affecting in first trimester acute March 29 3:02pm FH: hypothyroidism acute 2024 3:02pm Frequent UTI acute March 3:02pm Gluten free diet acute 2024 3:02pm acute 2024 3:02pm Supervision of high-risk acute March 29 3:02pm Borderline hypothyroidism acute April 26, 2024 3:27pm COVID-19 affecting in first trimester acute April 26 3:27pm FH: hypothyroidism acute 2024 3:27pm Frequent UTI acute April 3:27pm Gluten free diet acute April 26, 2024 3:27pm acute April 26, 2024 3:27pm Supervision of high-risk acute April 26 3:27pm Borderline hypothyroidism acute May 13, 2024 3:22pm COVID-19 affecting in first trimester acute May 13, 2 025 3:22pm FH: hypothyroidism acute ua 2024 3:22pm Frequent UTI acute April 3:22pm Gluten free diet acute May 13, 2024 3:22pm acute May 13, 2024 3:22pm Supervision of high-risk acute May 13, 3:22pm Borderline hypothyroidism acute May 31, 2024 3:46pm COVID-19 affecting in first trimester acute May 31, 2024 3:46pm FH: hypothyroidism acute May 31, 2024 3:46pm Frequent UTI acute May 31, 2024 3:46pm Gluten free diet acute May 312024 3:46pm acute May 31 3:46pm Supervision of high-risk acute May 31, 2024 3:46pm Borderline hypothyroidism acute June 14, 2024 1:55pm COVID-19 affecting in first trimester acute June 14, 2024 1:55pm FH: hypothyroidism acute June 14, 2024 1:55pm Frequent UTI acute June 14, 2024 1:55pm Gluten free diet acute June 142024 1:55pm acute June 14 1:55pm Supervision of high-risk acute June 14, 2024 1:55pm [facility] Work Phone: 1(325) 133-546901-10-2025 Evaluation note* Diagnosis Onset Date Resolution Status Admit Date Borderline hypothyroidism acute 2024 3:02pm COVID-19 affecting in first trimester acute March 29 3:02pm FH: hypothyroidism acute 2024 3:02pm Frequent UTI acute March 3:02pm Gluten free diet acute 2024 3:02pm acute 2024 3:02pm Supervision of high-risk acute March 29 3:02pm Borderline hypothyroidism acute April 26, 2024 3:27pm COVID-19 affecting in first trimester acute April 26 3:27pm FH: hypothyroidism acute 2024 3:27pm Frequent UTI acute April 3:27pm Gluten free diet acute April 26, 2024 3:27pm acute April 26, 2024 3:27pm Supervision of high-risk acute April 26 3:27pm Borderline hypothyroidism acute May 13, 2024 3:22pm COVID-19 affecting in first trimester acute May 13, 2 025 3:22pm FH: hypothyroidism acute ua 2024 3:22pm Frequent UTI acute April 3:22pm Gluten free diet acute May 13, 2024 3:22pm acute May 13, 2024 3:22pm Supervision of high-risk acute May 13, 2 025 3:22pm Borderline hypothyroidism acute May 31, 2024 3:46pm COVID-19 affecting in first trimester acute May 31, 2024 3:46pm FH: hypothyroidism acute May 31, 2024 3:46pm Frequent UTI acute May 31, 2024 3:46pm Gluten free diet acute May 312024 3:46pm acute May 31 3:46pm Supervision of high-risk acute May 31, 2024 3:46pm Borderline hypothyroidism acute June 14, 2024 1:55pm COVID-19 affecting in first trimester acute June 14, 2024 1:55pm FH: hypothyroidism acute June 14, 2024 1:55pm Frequent UTI acute June 14, 2024 1:55pm Gluten free diet acute June 142024 1:55pm acute June 14 1:55pm Supervision of high-risk acute June 14, 2024 1:55pm Borderline hypothyroidism acute June 28, 2024 3:22pm COVID-19 affecting in first trimester acute June 28, 2024 3:22pm FH: hypothyroidism acute June 28, 2024 3:22pm Frequent UTI acute June 28, 2024 3:22pm Gluten free diet acute June 282024 3:22pm acute June 28 3:22pm Supervision of high-risk acute June 28, 2024 3:22pm [facility] Work Phone: 1(979) 483-604501-10-2025 Evaluation note* Diagnosis Onset Date Resolution Status Admit Date Borderline hypothyroidism acute 2024 3:02pm COVID-19 affecting in first trimester acute March 29 3:02pm FH: hypothyroidism acute 2024 3:02pm Frequent UTI acute March 3:02pm Gluten free diet acute 2024 3:02pm acute 2024 3:02pm Supervision of high-risk acute March 29 3:02pm Borderline hypothyroidism acute April 26, 2024 3:27pm COVID-19 affecting in first trimester acute April 26 3:27pm FH: hypothyroidism acute 2024 3:27pm Frequent UTI acute April 3:27pm Gluten free diet acute April 26, 2024 3:27pm acute April 26, 2024 3:27pm Supervision of high-risk acute April 26 3:27pm Borderline hypothyroidism acute May 13, 2024 3:22pm COVID-19 affecting in first trimester acute May 13, 2 025 3:22pm FH: hypothyroidism acute 2024 3:22pm Frequent UTI acute April 3:22pm Gluten free diet acute May 13, 2024 3:22pm acute May 13, 2024 3:22pm Supervision of high-risk acute May 13, 2 025 3:22pm Borderline hypothyroidism acute May 31, 2024 3:46pm COVID-19 affecting in first trimester acute May 31, 2024 3:46pm FH: hypothyroidism acute May 31, 2024 3:46pm Frequent UTI acute May 31, 2024 3:46pm Gluten free diet acute May 312024 3:46pm acute May 31 3:46pm Supervision of high-risk acute May 31, 2024 3:46pm Borderline hypothyroidism acute June 14, 2024 1:55pm COVID-19 affecting in first trimester acute June 14, 2024 1:55pm FH: hypothyroidism acute June 14, 2024 1:55pm Frequent UTI acute June 14, 2024 1:55pm Gluten free diet acute June 142024 1:55pm acute June 14 1:55pm Supervision of high-risk acute June 14, 2024 1:55pm Borderline hypothyroidism acute June 28, 2024 3:22pm COVID-19 affecting in first trimester acute June 28, 2024 3:22pm FH: hypothyroidism acute June 28, 2024 3:22pm Frequent UTI acute June 28, 2024 3:22pm Gluten free diet acute June 282024 3:22pm acute June 28 3:22pm Supervision of high-risk acute June 28, 2024 3:22pm Borderline hypothyroidism acute July 05, 2024 3:02pm COVID-19 affecting in first trimester acute July 05, 2024 3:02pm FH: hypothyroidism acute July 05, 2024 3:02pm Frequent UTI acute July 05, 2024 3:02pm Gluten free diet acute July 052024 3:02pm acute July 05 3:02pm Supervision of high-risk acute July 05, 2024 3:02pm Borderline hypothyroidism acute July 12, 2024 2:45pm COVID-19 affecting in first trimester acute July 12, 2024 2:45pm FH: hypothyroidism acute July 12, 2024 2:45pm Frequent UTI acute July 12, 2024 2:45pm Gluten free diet acute July 122024 2:45pm acute July 12 2:45pm Supervision of high-risk acute July 12, 2024 2:45pm Active labor at term acute Apr2024 5:45pm Borderline hypothyroidism acute July 15, 2024 5:45pm COVID-19 affecting in first trimester acute July 15, 2024 5:45pm FH: hypothyroidism acute July 15, 2024 5:45pm Frequent UTI acute July 15, 2024 5:45pm Gluten free diet acute July 152024 5:45pm acute July 15 5:45pm Supervision of high-risk acute July 15, 2024 5:45pm Vaginal delivery acute July 152024 5:45pm [facility] Work Phone: 1(856) 256-104411-06-2024 Evaluation note* Diagnosis Onset Date Resolution Status Admit Date Borderline hypothyroidism acute January 24, 2024 2:44pm COVID-19 affecting in first trimester acute January 23 2:44pm FH: hypothyroidism acute Novemb 2023 2:44pm Frequent UTI acute January 2:44pm Gluten free diet acute January 24, 2024 2:44pm acute January 24, 2024 2:44pm Supervision of high-risk acute January 23 2:44pm Borderline hypothyroidism acute February 27, 2024 1:51pm COVID-19 affecting in first trimester acute February 26, 2 024 1:51pm FH: hypothyroidism acute Decemb er 2023 1:51pm Frequent UTI acute February 1:51pm Gluten free diet acute February 27, 2024 1:51pm acute February 27, 2024 1:51pm Supervision of high-risk acute February 26, 2 024 1:51pm Borderline hypothyroidism acute 2024 3:02pm COVID-19 affecting in first trimester acute March 29 3:02pm FH: hypothyroidism acute Januar y 2024 3:02pm Frequent UTI acute March 3:02pm Gluten free diet acute 2024 3:02pm acute 2024 3:02pm Supervision of high-risk acute March 29 3:02pm Borderline hypothyroidism acute April 26, 2024 3:27pm COVID-19 affecting in first trimester acute April 26 3:27pm FH: hypothyroidism acute Februa 2024 3:27pm Frequent UTI acute April 3:27pm Gluten free diet acute April 26, 2024 3:27pm acute April 26, 2024 3:27pm Supervision of high-risk acute April 26 3:27pm Borderline hypothyroidism acute May 13, 2024 3:22pm COVID-19 affecting in first trimester acute May 13, 2 025 3:22pm FH: hypothyroidism acute Februa 2024 3:22pm Frequent UTI acute April 3:22pm Gluten free diet acute May 13, 2024 3:22pm acute May 13, 2024 3:22pm Supervision of high-risk acute May 13, 2 025 3:22pm [facility] Work Phone: 1(865) 563-126404-29-2024 Telephone encounter Note* Telephone Encounter - Zeina Oh, ESTEFANI - 07/17/2023 9:32 AM EDT Received fax from [facility] regarding Keflex rx. States they need to to know max number of capsules patient can take per day too. Please update rx and file again. Zeina Oh RN [facility]04-29-2024 Miscellaneous Notes* Telephone Encounter - Zeina Oh RN - 07/17/2023 9:32 AM EDT Received fax from [facility] regarding Keflex rx. States they need to to know max number of capsules patient can take per day too. Please update rx and file again. Zeina Oh RN documented in this encounterPar[facility]04-[facility]24 NoteHNO ID: [id number] Author: LETTY MAHONEY MD Service: ? Author Type: Physician Type: Progress Notes Filed: 07/14/2023 09:50 Note Text: Kaushal is a 28 year old No obstetric history on file. who presents for an annual gynecologic exam with complaints, some vaginal dryness since had her 18 month old. Not anymore. Is on OCPs. Notes has lubrication but has some feeling of lack of elasticity and stinging during intercourse and once it starts it gets worse. Tried several OTC lubricants and some help more than others but didn't have this before she had her daughter. Notes had a vaginal delivery and 2 tears. Menses: cycles every 28 days and 7 days of flow. Contraception: combined hormonal contraceptives HPV vaccine: No Last Pap: 07/20/2022 Normal HPV: N/A History of abnormal pap: No Last mammogram: Never Sexually active: Yes OB History No obstetric history on file. 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 No pertinent past medical history.History reviewed. No pertinent surgical history.History reviewed. No pertinent family history.SOCIAL HISTORY Social History Tobacco Use Smoking status: Never Smokeless tobacco: Never Substance Use Topics Alcohol use: Not Currently Drug use: Never REVIEW OF SYSTEMS Abdomen: No abdominal pain, nausea, vomiting, diarrhea, or constipation. No bloating, early satiety, indigestion, or increased flatulence. Bladder: No dysuria, gross hematuria, urinary frequency, urinary urgency, or incontinence. Breast: No breast lumps, nipple d/c, overlying skin changes, redness or skin retraction. Allergies and current medication updated:Yes EXAM: BP 108/66 Ht 5' 3 (1.60m) Wt 125 lb 9.6 oz (57.0kg) LMP 06/30/2023 BMI 22.25 kg/(m2). GENERAL: pleasant, female in no apparent distress HEENT: Normocephalic, atraumatic, mucus membranes moist, and no lesions NECK: Supple, full range of motion, no adenopathy, and thyroid normal DERMATOLOGY: Normal, without lesions, non-icteric, and non-hirsute BREAST: soft, non-tender, symmetric, no dominant mass, normal nipple-areolar complex, no lymphadenopathy, and no nipple discharge CHEST: Normal inspiratory effort ABDOMEN: soft, non-tender, and no masses PELVIC: external genitalia normal, normal Bartholin's glands, urethra, [place]'s glands, no vulvar lesions, no cervical lesions, good vaginal support, physiologic discharge present, normal appearing perineal body and perianal region, no tenderness over levators, normal depth and caliper BIMANUAL: uterus normal size, shape and consistency, no adnexal masses, and non-tender RECTOVAGINAL: deferred. NEURO: alert and oriented x3,exam grossly non-focal EXTREMITIES: normal ASSESSMENT/PLAN: 1) Health maintenance: Pap/HPV up to date. Mammogram starting age 40. HPV vaccine: discussed, not interested 2) Contraception: combined hormonal contraceptives. Contraceptive options reviewed and information provided. 3) STD screening: Declined STD check. 4) Follow up one year or sooner as needed vaginal pain- d/w her no visual or structural abnormalities, no levator spasm. could consider seeing how she does off OCPS. Will likely d/c them later in the year to attempt . D/w her could trial vaginal amitryptiline to see if that would help, would like to trial that. Call if worsens. keflex prn to prevent UTIs after intercourse Letty Mahoney [facility]04-26-2024 History of Present illness Narrative* Letty Mahoney MD - 07/14/2023 9:26 AM EDT Kaushal is a 28 year old No obstetric history on file. who presents for an annual gynecologic exam with complaints, some vaginal dryness since had her 18 month old. Not anymore. Is on OCPs. Notes has lubrication but has some feeling of lack of elasticity and stinging during intercourse and once it starts it gets worse. Tried several OTC lubricants and some help more than others but didn't have this before she had her daughter. Notes had a vaginal delivery and 2 tears. Menses: cycles every 28 days and 7 days of flow. Contraception: combined hormonal contraceptives HPV vaccine: No Last Pap: 07/20/2022 Normal HPV: N/A History of abnormal pap: No Last mammogram: Never Sexually active: Yes OB History No obstetric history on file. 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 No pertinent past medical history.History reviewed. No pertinent surgical history.History reviewed. No pertinent family history.SOCIAL HISTORY Social History Tobacco Use Smoking status: Never Smokeless tobacco: Never Substance Use Topics Alcohol use: Not Currently Drug use: Never REVIEW OF SYSTEMS Abdomen: No abdominal pain, nausea, vomiting, diarrhea, or constipation. No bloating, early satiety, indigestion, or increased flatulence. Bladder: No dysuria, gross hematuria, urinary frequency, urinary urgency, or incontinence. Breast: No breast lumps, nipple d/c, overlying skin changes, redness or skin retraction. Allergies and current medication updated:Yes EXAM: BP 108/66 Ht 5' 3 (1.60m) Wt 125 lb 9.6 oz (57.0kg) LMP 06/30/2023 BMI 22.25 kg/(m^2). GENERAL: pleasant, female in no apparent distress HEENT: Normocephalic, atraumatic, mucus membranes moist, and no lesions NECK: Supple, full range of motion, no adenopathy, and thyroid normal DERMATOLOGY: Normal, without lesions, non-icteric, and non-hirsute BREAST: soft, non-tender, symmetric, no dominant mass, normal nipple-areolar complex, no lymphadenopathy, and no nipple discharge CHEST: Normal inspiratory effort ABDOMEN: soft, non-tender, and no masses PELVIC: external genitalia normal, normal Bartholin's glands, urethra, [place]'s glands, no vulvar lesions, no cervical lesions, good vaginal support, physiologic discharge present, normal appearing perineal body and perianal region, no tenderness over levators, normal depth and caliper BIMANUAL: uterus normal size, shape and consistency, no adnexal masses, and non-tender RECTOVAGINAL: deferred. NEURO: alert and oriented x3,exam grossly non-focal EXTREMITIES: normal ASSESSMENT/PLAN: 1) Health maintenance: Pap/HPV up to date. Mammogram starting age 40. HPV vaccine: discussed, not interested 2) Contraception: combined hormonal contraceptives. Contraceptive options reviewed and information provided. 3) STD screening: Declined STD check. 4) Follow up one year or sooner as needed vaginal pain- d/w her no visual or structural abnormalities, no levator spasm. could consider seeing how she does off OCPS. Will likely d/c them later in the year to attempt . D/w her could trial vaginal amitryptiline to see if that would help, would like to trial that. Call if worsens. keflex prn to prevent UTIs after intercourse Letty Mahoney MD documented in [facility] encounterPar[facility] Miscellaneous Notes* Telephone Encounter - Vanessa Avina LPN - 11/16/2022 1:01 PM EDT Medical records received and placed in Dr. Mahoney's nurse area. documented in this encounterPar[facility]04-[facility]-2023 NotePap Smear Specimen AdequacyApril 2022 1:24pmComment.Satisfactory for evaluation. Endocervical and/or squamous metaplasticcells (endocervical component)are present.[facility] INTER[facility]ACED A#[id number] HospitalComment on above:Satisfactory for evaluation. Endocervical and/or squamous metaplasticcells (endocervical component)are present.Evaluation noteNo assessment information availableWAdena Health System Work Phone: Evaluation note* Diagnosis Onset Date Resolution Status acute Vaginal delivery acute [facility] Work Phone: Evaluation note* Diagnosis Encounter for gynecological examination (general) (routine) without abnormal findings- [facility] Additional Instructions Regular diet. Weightbearing as tolerated. Okay to shower. No intercourse for 4 to 6 weeks. Call if fevers, chills, chest pain, shortness of breath. Follow-up 4 to 6 weeks Date of Dis[facility]: [facility]21[facility] Work Phone: Reason for referral (narrative)No reason for referral information availableWAdena Health System Work Phone: Summary Purpose Family History No Family History Records Found Relationship Condition Age at Onset Recorded Date/T slim mother Disorder of thyroid Unknown aunt Disorder of thyroid Unknown grandmother Disorder of thyroid Unknown Advance Directives No Advanced Directives Records Found Advance Directive Response Recorded Date/ Time Living Will No December 13, 2020 10:30am Power of Blanking Press Operator No November 10:30am Advance Directive Response Recorded Date/ Time Living Will No November 30, 2021 8:44am Power of Blanking Press Operator No November 8:44am Advance Directive Response Recorded Date/ Time Living Will No November 30, 2021 7:44am Power of Blanking Press Operator No November 7:44am Advance Directive Response Recorded Date/ Time Living Will No November 30, 2021 8:44am Do you have a Healthcare Power of Blanking Press Operator? No November 30, 2021 8:44am Advance Directive Response Recorded Date/ Time Living Will No November 30, 2021 8:44am Do you have a Healthcare Power of Blanking Press Operator? No November 30, 2021 8:44am Do you have a Healthcare Power of Blanking Press Operator? Yes July 15, 2024 6:20pm Chief Complaint and Reason for Visit Chief Complaint VAGINAL DELIVERY Reason for Visit Vaginal delivery Chief Complaint Admit Date 13wk OB January 24, 2024 2 :44pm 17 WK OB February 27, 2024 1:51pm 24 WK OB 2024 3 :02pm 28 WK OB/GLUCOSE April 26, 2024 3 :27pm 30 WK OB May 13, 2024 3:22pm Reason for Visit Admit Date Borderline hypothyroidism January 24, 2024 2:44pm COVID-19 affecting in first tr imester January 24, 2024 2:44pm FH: hypothyroidism January 24, 2024 2 :44pm Frequent UTI January 24, 2024 2 :44pm Gluten free diet January 24, 2024 2 :44pm January 24, 2024 2 :44pm Supervision of high-risk Novem 2023 2:44pm Borderline hypothyroidism February 27, 2024 1:51pm COVID-19 affecting in first tr imester February 27, 2024 1:51pm FH: hypothyroidism February 27, 2024 1:51pm Frequent UTI February 27, 2024 1:51pm Gluten free diet February 27, 2024 1:51pm February 27, 2024 1:51pm Supervision of high-risk Decem 2023 1:51pm Borderline hypothyroidism 2024 3:02pm COVID-19 affecting in first tr imester 2024 3:02pm FH: hypothyroidism 2024 3 :02pm Frequent UTI 2024 3 :02pm Gluten free diet 2024 3 :02pm 2024 3 :02pm Supervision of high-risk Janua ry 2024 3:02pm Borderline hypothyroidism April 26, 2024 3:27pm COVID-19 affecting in first tr imester April 26, 2024 3:27pm FH: hypothyroidism April 26, 2024 3 :27pm Frequent UTI April 26, 2024 3 :27pm Gluten free diet April 26, 2024 3 :27pm April 26, 2024 3 :27pm Supervision of high-risk Febru ayana 2024 3:27pm Borderline hypothyroidism May 13, 2024 3:22pm COVID-19 affecting in first tr imester May 13, 2024 3:22pm FH: hypothyroidism May 13, 2024 3:22pm Frequent UTI May 13, 2024 3:22pm Gluten free diet May 13, 2024 3:22pm May 13, 2024 3:22pm Supervision of high-risk Febru ayana 2024 3:22pm Chief Complaint Admit Date 24 WK OB 2024 3 :02pm 28 WK OB/GLUCOSE April 26, 2024 3 :27pm 30 WK OB May 13, 2024 3:22pm 32 WK OB May 31, 2024 3:4 6pm 34 WK OB June 14, 2024 1:5 5pm HYPOTHYROIDISM June 24, 2024 3:19 pm Reason for Visit Admit Date Borderline hypothyroidism 2024 3:02pm COVID-19 affecting in first tr imester 2024 3:02pm FH: hypothyroidism 2024 3 :02pm Frequent UTI 2024 3 :02pm Gluten free diet 2024 3 :02pm 2024 3 :02pm Supervision of high-risk Janua 2024 3:02pm Borderline hypothyroidism April 26, 2024 3:27pm COVID-19 affecting in first tr imester April 26, 2024 3:27pm FH: hypothyroidism April 26, 2024 3 :27pm Frequent UTI April 26, 2024 3 :27pm Gluten free diet April 26, 2024 3 :27pm April 26, 2024 3 :27pm Supervision of high-risk Febru ayana2024 3:27pm Borderline hypothyroidism May 13, 2024 3:22pm COVID-19 affecting in first tr imester May 13, 2024 3:22pm FH: hypothyroidism May 13, 2024 3:22pm Frequent UTI May 13, 2024 3:22pm Gluten free diet May 13, 2024 3:22pm May 13, 2024 3:22pm Supervision of high-risk Febru ayana 2024 3:22pm Borderline hypothyroidism May 31 3:46pm COVID-19 affecting in first tr imester May 31, 2024 3:46pm FH: hypothyroidism May 31, 2024 3:4 6pm Frequent UTI May 31, 2024 3:4 6pm Gluten free diet May 31, 2024 3:4 6pm May 31, 2024 3:4 6pm Supervision of high-risk May 31, 2024 3:46pm Borderline hypothyroidism June 14 1:55pm COVID-19 affecting in first tr imester June 14, 2024 1:55pm FH: hypothyroidism June 14, 2024 1:5 5pm Frequent UTI June 14, 2024 1:5 5pm Gluten free diet June 14, 2024 1:5 5pm June 14, 2024 1:5 5pm Supervision of high-risk June 14, 2024 1:55pm Chief Complaint Admit Date 24 WK OB 2024 3 :02pm 28 WK OB/GLUCOSE April 26, 2024 3 :27pm 30 WK OB May 13, 2024 3:22pm 32 WK OB May 31, 2024 3:4 6pm 34 WK OB June 14, 2024 1:5 5pm HYPOTHYROIDISM June 24, 2024 3:19 pm 36 WK OB June 28, 2024 3:2 2pm Reason for Visit Admit Date Borderline hypothyroidism 2024 3:02pm COVID-19 affecting in first tr imester 2024 3:02pm FH: hypothyroidism 2024 3 :02pm Frequent UTI 2024 3 :02pm Gluten free diet 2024 3 :02pm 2024 3 :02pm Supervision of high-risk Janua ry 2024 3:02pm Borderline hypothyroidism April 26, 2024 3:27pm COVID-19 affecting in first tr imester April 26, 2024 3:27pm FH: hypothyroidism April 26, 2024 3 :27pm Frequent UTI April 26, 2024 3 :27pm Gluten free diet April 26, 2024 3 :27pm April 26, 2024 3 :27pm Supervision of high-risk Febru ayana 2024 3:27pm Borderline hypothyroidism May 13, 2024 3:22pm COVID-19 affecting in first tr imester May 13, 2024 3:22pm FH: hypothyroidism May 13, 2024 3:22pm Frequent UTI May 13, 2024 3:22pm Gluten free diet May 13, 2024 3:22pm May 13, 2024 3:22pm Supervision of high-risk Febru ayana 2024 3:22pm Borderline hypothyroidism May 31 3:46pm COVID-19 affecting in first tr imester May 31, 2024 3:46pm FH: hypothyroidism May 31, 2024 3:4 6pm Frequent UTI May 31, 2024 3:4 6pm Gluten free diet May 31, 2024 3:4 6pm May 31, 2024 3:4 6pm Supervision of high-risk May 31, 2024 3:46pm Borderline hypothyroidism June 14 1:55pm COVID-19 affecting in first tr imester June 14, 2024 1:55pm FH: hypothyroidism June 14, 2024 1:5 5pm Frequent UTI June 14, 2024 1:5 5pm Gluten free diet June 14, 2024 1:5 5pm June 14, 2024 1:5 5pm Supervision of high-risk June 14, 2024 1:55pm Borderline hypothyroidism June 28 3:22pm COVID-19 affecting in first tr imester June 28, 2024 3:22pm FH: hypothyroidism June 28, 2024 3:2 2pm Frequent UTI June 28, 2024 3:2 2pm Gluten free diet June 28, 2024 3:2 2pm June 28, 2024 3:2 2pm Supervision of high-risk June 28, 2024 3:22pm Chief Complaint Admit Date 24 WK OB 2024 3 :02pm 28 WK OB/GLUCOSE April 26, 2024 3 :27pm 30 WK OB May 13, 2024 3:22pm 32 WK OB May 31, 2024 3:4 6pm 34 WK OB June 14, 2024 1:5 5pm HYPOTHYROIDISM June 24, 2024 3:19 pm 36 WK OB June 28, 2024 3:2 2pm 37 WK OB July 05, 2024 3:0 2pm 38 WK OB July 12, 2024 2:4 5pm LABOR & DELIVERY July 15, 2024 5:4 5pm LABOR & DELIVERY July 15, 2024 6:5 9pm LABOR & DELIVERY July 16, 2024 7:3 3am Reason for Visit Admit Date Borderline hypothyroidism 2024 3:02pm COVID-19 affecting in first tr imester 2024 3:02pm FH: hypothyroidism 2024 3 :02pm Frequent UTI 2024 3 :02pm Gluten free diet 2024 3 :02pm 2024 3 :02pm Supervision of high-risk Janua ry 2024 3:02pm Borderline hypothyroidism April 26, 2024 3:27pm COVID-19 affecting in first tr imester April 26, 2024 3:27pm FH: hypothyroidism April 26, 2024 3 :27pm Frequent UTI April 26, 2024 3 :27pm Gluten free diet April 26, 2024 3 :27pm April 26, 2024 3 :27pm Supervision of high-risk Febru ayana 2024 3:27pm Borderline hypothyroidism May 13, 2024 3:22pm COVID-19 affecting in first tr imester May 13, 2024 3:22pm FH: hypothyroidism May 13, 2024 3:22pm Frequent UTI May 13, 2024 3:22pm Gluten free diet May 13, 2024 3:22pm May 13, 2024 3:22pm Supervision of high-risk Febru ayana 2024 3:22pm Borderline hypothyroidism May 31 3:46pm COVID-19 affecting in first tr imester May 31, 2024 3:46pm FH: hypothyroidism May 31, 2024 3:4 6pm Frequent UTI May 31, 2024 3:4 6pm Gluten free diet May 31, 2024 3:4 6pm May 31, 2024 3:4 6pm Supervision of high-risk May 31, 2024 3:46pm Borderline hypothyroidism June 14 1:55pm COVID-19 affecting in first tr imester June 14, 2024 1:55pm FH: hypothyroidism June 14, 2024 1:5 5pm Frequent UTI June 14, 2024 1:5 5pm Gluten free diet June 14, 2024 1:5 5pm June 14, 2024 1:5 5pm Supervision of high-risk June 14, 2024 1:55pm Borderline hypothyroidism June 28 3:22pm COVID-19 affecting in first tr imester June 28, 2024 3:22pm FH: hypothyroidism June 28, 2024 3:2 2pm Frequent UTI June 28, 2024 3:2 2pm Gluten free diet June 28, 2024 3:2 2pm June 28, 2024 3:2 2pm Supervision of high-risk June 28, 2024 3:22pm Borderline hypothyroidism July 05 3:02pm COVID-19 affecting in first tr imester July 05, 2024 3:02pm FH: hypothyroidism July 05, 2024 3:0 2pm Frequent UTI July 05, 2024 3:0 2pm Gluten free diet July 05, 2024 3:0 2pm July 05, 2024 3:0 2pm Supervision of high-risk July 05, 2024 3:02pm Borderline hypothyroidism July 12 2:45pm COVID-19 affecting in first tr imester July 12, 2024 2:45pm FH: hypothyroidism July 12, 2024 2:4 5pm Frequent UTI July 12, 2024 2:4 5pm Gluten free diet July 12, 2024 2:4 5pm July 12, 2024 2:4 5pm Supervision of high-risk July 12, 2024 2:45pm Active labor at term July 15, 2024 5: 45pm Borderline hypothyroidism July 15 5:45pm COVID-19 affecting in first tr imester July 15, 2024 5:45pm FH: hypothyroidism July 15, 2024 5:4 5pm Frequent UTI July 15, 2024 5:4 5pm Gluten free diet July 15, 2024 5:4 5pm July 15, 2024 5:4 5pm Supervision of high-risk July 15, 2024 5:45pm Vaginal delivery July 15, 2024 5:4 5pm Chief Complaint Admit Date 30 WK OB May 13, 2024 3:22pm 32 WK OB May 31, 2024 3:4 6pm 34 WK OB June 14, 2024 1:5 5pm HYPOTHYROIDISM June 24, 2024 3:19 pm 36 WK OB June 28, 2024 3:2 2pm 37 WK OB July 05, 2024 3:0 2pm 38 WK OB July 12, 2024 2:4 5pm LABOR & DELIVERY July 15, 2024 5:4 5pm LABOR & DELIVERY July 15, 2024 6:5 9pm LABOR & DELIVERY July 16, 2024 7:3 3am visit (obstetrics) September 05, 2024 2:21pm Reason for Visit Admit Date Borderline hypothyroidism May 13, 2024 3:22pm COVID-19 affecting in first tr imester May 13, 2024 3:22pm FH: hypothyroidism May 13, 2024 3:22pm Frequent UTI May 13, 2024 3:22pm Gluten free diet May 13, 2024 3:22pm May 13, 2024 3:22pm Supervision of high-risk Febru ayana2024 3:22pm Borderline hypothyroidism May 31 3:46pm COVID-19 affecting in first tr imester May 31, 2024 3:46pm FH: hypothyroidism May 31, 2024 3:4 6pm Frequent UTI May 31, 2024 3:4 6pm Gluten free diet May 31, 2024 3:4 6pm May 31, 2024 3:4 6pm Supervision of high-risk May 31, 2024 3:46pm Borderline hypothyroidism June 14 1:55pm COVID-19 affecting in first tr imester June 14, 2024 1:55pm FH: hypothyroidism June 14, 2024 1:5 5pm Frequent UTI June 14, 2024 1:5 5pm Gluten free diet June 14, 2024 1:5 5pm June 14, 2024 1:5 5pm Supervision of high-risk June 14, 2024 1:55pm Borderline hypothyroidism June 28 3:22pm COVID-19 affecting in first tr imester June 28, 2024 3:22pm FH: hypothyroidism June 28, 2024 3:2 2pm Frequent UTI June 28, 2024 3:2 2pm Gluten free diet June 28, 2024 3:2 2pm June 28, 2024 3:2 2pm Supervision of high-risk June 28, 2024 3:22pm Borderline hypothyroidism July 05 3:02pm COVID-19 affecting in first tr imester July 05, 2024 3:02pm FH: hypothyroidism July 05, 2024 3:0 2pm Frequent UTI July 05, 2024 3:0 2pm Gluten free diet July 05, 2024 3:0 2pm July 05, 2024 3:0 2pm Supervision of high-risk July 05, 2024 3:02pm Borderline hypothyroidism July 12 2:45pm COVID-19 affecting in first tr imester July 12, 2024 2:45pm FH: hypothyroidism July 12, 2024 2:4 5pm Frequent UTI July 12, 2024 2:4 5pm Gluten free diet July 12, 2024 2:4 5pm July 12, 2024 2:4 5pm Supervision of high-risk July 12, 2024 2:45pm Active labor at term July 15, 2024 5: 45pm Borderline hypothyroidism July 15 5:45pm COVID-19 affecting in first tr imester July 15, 2024 5:45pm FH: hypothyroidism July 15, 2024 5:4 5pm Frequent UTI July 15, 2024 5:4 5pm Gluten free diet July 15, 2024 5:4 5pm July 15, 2024 5:4 5pm Supervision of high-risk July 15, 2024 5:45pm Vaginal delivery July 15, 2024 5:4 5pm Routine Follow-Up September 05, 2024 2:21pm Additional Source Comments INFORMATION SOURCE (unrecogn ized section and content) DATE CREATED AUTHOR 09/11/2017 [facility] DATE CREATED AUTHOR AUTHOR'S ORGANIZ ATION 07/18/2023 [facility] DATE CREATED AUTHOR AUTHOR'S ORGANIZ ATION 03/21/[address] [facility] DATE CREATED AUTHOR AUTHOR'S ORGANIZ ATION 09/05/2024 [facility] Goals (unrecognized section and content) Goals may be documented in a n alternate sectionGoals may be documented in an alternate sectionGoals may be documented in an alternate sectionGoals may be documented in an alternate sectionGoals may be documented in an alternate sectionGoals may be documented in an alternate sectionGoals may be documented in an alternate sectionGoals may be documented in an alternate sectionGoals may be documented in an alternate sectionGoals may be documented in an alternate section Care Teams (unrecognized sec tion and content) Team Status: Active Member Role Status Dates Dr. Paris Lee MD Primary Care Provider Active Team Status: Inactive Member Role Status Dates Dr. Paris Lee MD Primary Care Provider Active Dr. Judith Barrientos DO Attending Provider Active Team Status: Inactive Member Role Status Dates Dr. Paris Lee MD Primary Care Prov ider, Attending Provider, Referring Provider Active Team Status: Inactive Member Role Status Dates Dr. Paris Lee MD Primary Care Provider, Attendin g Provider Active Team Status: Active Member Role Status Dates Dr. aPris Lee MD Primary Care Provider, Attendin g Provider Active Team Status: Inactive Member Role Status Dates Dr. Paris Lee MD Primary Care Provider Active Start: January 24, 2024 End: January 24, 2024 Dr. Paris Lee MD Referring Provider Active Start: January 24, 2024 End: January 24, 2024 Dr. Lluvia Shah DO Attending Provider Activ e Start: January 24, 2024 End: January 24, 2024 Team Status: Inactive Member Role Status Dates Dr. Paris Lee MD Primary Care Provider Active Start: February 27, 2024 End: February 27, 2024 Dr. Paris Lee MD Referring Provider Active Start: February 27, 2024 End: February 27, 2024 Izzy Toussaint NP, [employer] Attending Provider Active Start: February 27, 2024 End: February 27, 2024 Team Status: Inactive Member Role Status Dates Dr. Paris Lee MD Primary Care Provider Active Start: 2024 End: 2024 Dr. Paris Lee MD Referring Provider Active Start: 2024 End: 2024 Kate Luna CNM Attending Provider Active S tart: 2024 End: 2024 Team Status: Inactive Member Role Status Dates Dr. Paris Lee MD Primary Care Provider Active Start: April 26, 2024 End: April 26, 2024 Dr. Paris Lee MD Referring Provider Active Start: April 26, 2024 End: April 26, 2024 Dr. Rosalind Oconnor MD Attending Provider Active Start: April 26, 2024 End: April 26, 2024 Team Status: Inactive Member Role Status Dates Dr. Paris Lee MD Primary Care Provider Active Start: April 26, 2024 End: April 26, 2024 Dr. Rosalind Oconnor MD Attending Provider Active Start: April 26, 2024 End: April 26, 2024 Dr. Rosalind Oconnor MD Referring Provider Active Start: April 26, 2024 End: April 26, 2024 Team Status: Inactive Member Role Status Dates Dr. Paris Lee MD Primary Care Provider Active Start: May 13, 2024 End: May 13, 2024 Dr. Paris Lee MD Referring Provider Active Start: May 13, 2024 End: May 13, 2024 Dr. Lluvia Shah DO Attending Provider Activ e Start: May 13, 2024 End: May 13, 2024 Team Status: Inactive Member Role Status Dates Dr. Paris Lee MD Primary Care Provider Active Start: May 13, 2024 End: May 13, 2024 Dr. Lluvia Shah DO Attending Provider Activ e Start: May 13, 2024 End: May 13, 2024 Dr. Lluvia Shah DO Referring Provider Activ e Start: May 13, 2024 End: May 13, 2024 Team Status: Inactive Member Role Status Dates Dr. Paris Lee MD Primary Care Provider Active Start: May 31, 2024 End: May 31, 2024 Dr. Paris Lee MD Referring Provider Active Start: May 31, 2024 End: May 31, 2024 Kya Go CNM Attending Provider Active Start: May 31, 2024 End: May 31, 2024 Team Status: Inactive Member Role Status Dates Dr. Paris Lee MD Primary Care Provider Active Start: June 14, 2024 End: June 14, 2024 Dr. Paris Lee MD Referring Provider Active Start: June 14, 2024 End: June 14, 2024 Dr. Lluvia Shah DO Attending Provider Activ e Start: June 14, 2024 End: June 14, 2024 Team Status: Inactive Member Role Status Dates Dr. Paris Lee MD Primary Care Provider Active Start: June 24, 2024 End: June 24, 2024 Dr. Lluvia Shah DO Attending Provider Activ e Start: June 24, 2024 End: June 24, 2024 Dr. Lluvia Shah DO Referring Provider Activ e Start: June 24, 2024 End: June 24, 2024 Team Status: Inactive Member Role Status Dates Dr. Paris Lee MD Primary Care Provider Active Start: June 28, 2024 End: June 28, 2024 Dr. Paris Lee MD Referring Provider Active Start: June 28, 2024 End: June 28, 2024 Dr. Lluvia Shah DO Attending Provider Activ e Start: June 28, 2024 End: June 28, 2024 Team Status: Inactive Member Role Status Dates Dr. Paris Lee MD Primary Care Provider Active Start: June 28, 2024 End: June 28, 2024 Dr. Lluvia Shah DO Attending Provider Activ e Start: June 28, 2024 End: June 28, 2024 Dr. Lluvia Shah DO Referring Provider Activ e Start: June 28, 2024 End: June 28, 2024 Team Status: Inactive Member Role Status Dates Dr. Paris Lee MD Primary Care Provider Active Start: July 05, 2024 End: July 05, 2024 Dr. Paris Lee MD Referring Provider Active Start: July 05, 2024 End: July 05, 2024 Kate Luna CNM Attending Provider Active S tart: July 05, 2024 End: July 05, 2024 Team Status: Inactive Member Role Status Dates Dr. Paris Lee MD Primary Care Provider Active Start: July 12, 2024 End: July 12, 2024 Dr. Paris Lee MD Referring Provider Active Start: July 12, 2024 End: July 12, 2024 Kya Go CNM Attending Provider Active Start: July 12, 2024 End: July 12, 2024 Team Status: Inactive Member Role Status Dates Dr. Paris Lee MD Primary Care Provider Active Start: July 15, 2024 End: July 16, 2024 Dr. Lluvia Shah DO Admit Provider Active Start: July 15, 2024 End: July 16, 2024 Dr. Lluvia Shah DO Attending Provider Activ e Start: July 15, 2024 End: July 16, 2024 Dr. Lluvia Shah DO Referring Provider Activ e Start: July 15, 2024 End: July 16, 2024 Team Status: Active Member Role Status Dates Dr. Paris Lee MD Primary Care Provider Active Start: July 15, 2024 Dr. Lluvia Shah DO Admit Provider Active Start: July 15, 2024 Dr. Lluvia Shah DO Attending Provider Activ e Start: July 15, 2024 Dr. Lluvia Shah DO Referring Provider Activ e Start: July 15, 2024 Dr. Lluvia Shah DO Other Provider Active Start: July 15, 2024 Team Status: Active Member Role Status Dates Dr. Paris Lee MD Primary Care Provider Active Start: July 16, 2024 Dr. Lluvia Shah DO Admit Provider Active Start: July 16, 2024 Dr. Lluvia Shah DO Referring Provider Activ e Start: July 16, 2024 Dr. Lluvia Shah DO Other Provider Active Start: July 16, 2024 Kate Luna CNM Attending Provider Active S tart: July 16, 2024 Team Status: Inactive Member Role Status Dates Dr. Paris Lee MD Primary Care Provider Active Start: September 05, 2024 End: September 05, 2024 Dr. Paris Lee MD Referring Provider Active Start: September 05, 2024 End: September 05, 2024 Dr. Lluvia Shah DO Attending Provider Activ e Start: September 05, 2024 End: September 05, 2024 Source Comments (unrecognize d section and content) In the event this informatio n is protected by the Federal Confidentiality of Alcohol and Drug Abuse Patient Records regulations: The Federal rules restrict any use of the information to criminally investigate or prosecute any alcohol or drug abuse patient.[facility] the event this information is protected by the Federal Confidentiality of Alcohol and Drug Abuse Patient Records regulations: The Federal rules restrict any use of the information to criminally investigate or prosecute any alcohol or drug abuse patient.[facility] the event this information is protected by the Federal Confidentiality of Alcohol and Drug Abuse Patient Records regulations: The Federal rules restrict any use of the information to criminally investigate or prosecute any alcohol or drug abuse patient.[facility] Reason for Visit (unrecogniz ed section and content) Reason Comments Received Outside Medical Records Reason Comments Medication Clarification FOR RECORDS PERTAINING TO PATIENTS WHO ARE OR HAVE BEEN ENROLLED IN A CHEMICAL DEPENDENCY/SUBSTANCEABUSE PROGRAM, SOME INFORMATION MAY BE OMITTED. This clinical summary was aggregated from multiple sources. Caution should be exercised in using it in the provision of clinical care. This summary normalizes information from multiple sources, and as a consequence, information in this document may materially change the coding, format and clinical context of patient data. In addition, data may be omitted in some cases. CLINICAL DECISIONS SHOULD BE BASED ON THE PRIMARY CLINICAL RECORDS. [facility]. provides no warranty or guarantee of the accuracy or completeness of information in this document.
== END | disposition home or self-care (01) ==
LOC: BWCLAB 08:58
PROVIDERS: PCP Family Medicine; Referring Provider Obstetrics & Gynecology; Visit Provider Obstetrics & Gynecology
DX: R94.6 Abnormal results of thyroid function studies (principal)
CPT/HCPCS: 36415; 84439; 84443